=== PATIENT | female | born 1930 | race Caucasian/White ===

== ENCOUNTER → 2016-10-07 | Outpatient (CLI) | payer OTHER, MEDICARE ==
[~2016-10-07] MED LIST: ADVIN10/60 INH; ASPI-435 PO; CALC1TAB9 PO; CHOL1TAB16 PO; LEVO25TA5 PO; MULT-831 PO; OMEP20CA59 PO; OXYB5TAB PO; SENN15TA PO
--- NOTE | 2016-10-07 14:30 | MAMMOGRAPHY REPORT ---
BILATERAL DIGITAL SCREENING MAMMOGRAM WITH CAD: 10/07/2016 CLINICAL HISTORY: Routine screening. TECHNIQUE: Bilateral CC and MLO views were obtained. Current study was also evaluated with a Compute r Aided Detection (CAD) system. COMPARISON: Comparison is made to exams dated: 10/04/2015 mammogram, 09/13/2014 mammogram, 09/09/2013 ma mmogram, 09/07/2012 mammogram, 09/04/2011 mammogram, and 08/31/2010 mammogram - [facility] er. BREAST COMPOSITION: The tissue of both breasts is heterogeneously dense, which may obscure small mas ses. FINDINGS: There are stable intramammary lymph nodes in each upper outer quadrant. Moderate vascular calcifications bilaterally. Stable groupings of benign-appearing microcalcifications in each breast. No new suspicious mass, architectural distortion or cluster of microcalcifications is seen. IMPRESSION: ACR BI-RADS CATEGORY 1: NEGATIVE There is no mammographic evidence of malignancy. A 1 year screening mammogram is recommended. The pa tient will receive written notification of the results. Approximately 10% of breast cancers are not detected with mammography. A negative mammographic report should not delay biopsy if a clinically suggestive mass is present. Jessy Gomez M.D. ay/:10/07/2016 12:38:17 [employer] Setter: Monserrat PACHECO(R)([place]), [facility] letter sent: Normal 1/2 BI-RADS Code: ACR BI-RADS Category 1: Negative
== END | disposition home or self-care (01) ==
LOC: C.MAMM 10:40
PROVIDERS: ATTEND Obstetrics & Gynecology
DX: Z12.31 Encounter for screening mammogram for malignant neoplasm of breast (principal)

== ENCOUNTER → 2016-12-19 | Outpatient (CLI) | payer OTHER, MEDICARE | END | disposition home or self-care (01) | LOC: C.PAPS 14:09 | PROVIDERS: ATTEND Obstetrics & Gynecology | DX: Z12.4 Encounter for screening for malignant neoplasm of cervix (principal) ==

== ENCOUNTER → 2017-08-06 | Outpatient (CLI) | payer OTHER, MEDICARE ==
[2017-08-06 17:17] LABS: BLOOD UREA NITROGEN 13 mg/dl (7-18); CALCIUM 9.1 mg/dl (8.5-10.1); CARBON DIOXIDE 28 mmol/L (21-32); CREATININE 0.73 mg/dl (0.60-1.20); GLUCOSE 97 mg/dl (70-99); POTASSIUM 3.8 mmol/L (3.5-5.1); SODIUM 140 mmol/L (136-145)
== END | disposition home or self-care (01) ==
LOC: C.LABPBG 11:37
PROVIDERS: ATTEND Family Medicine
DX: R32 Unspecified urinary incontinence (principal); J45.909 Unspecified asthma, uncomplicated; E03.9 Hypothyroidism, unspecified; M81.0 Age-related osteoporosis without current pathological fracture

== ENCOUNTER 2018-10-26 11:05 | Observation (INO) ==
[2018-10-26] MEDS ORDERED: ONDANSETRON INJ 2 MG/ML 2 ML VIAL IV STA (11:55)
[2018-10-26] MEDS ORDERED: MoRPHine SULFATE 2 MG/ML CARP IV STA ×2 (11:55→13:43)
[2018-10-26] MEDS ORDERED: SODIUM CHLORIDE 0.9% 500 ML IV ONE (11:59)
[2018-10-26 12:07] LABS: Basophils # (auto) 0.04 K/uL (0-0.2); Basophils % (auto) 0.4 %; Eosinophils # (auto) 0.06 K/uL (0-0.5); Eosinophils % (auto) 0.6 %; Hematocrit (blood only) 38.6 % (37-47); Immature Granulocytes # (auto) 0.04 K/uL (0.00-0.02); Immature Granulocytes % (auto) 0.4 %; Lymphocytes # (auto) 1.76 K/uL (1.2-3.4); Mean Corpuscular Hgb Conc 33.7 g/dL (32-36); Mean Corpuscular Volume 88.1 fL (80-100); Mean Platelet Volume 12.1 fL (7.4-10.4); Monocytes # (auto) 0.68 K/uL (0.11-0.59); Neutrophils # (auto) 7.19 K/uL (1.4-6.5); Neutrophils % (auto) 73.6 %; Platelet Count 173 K/uL (130-400); RDW Coefficient of Variation 13.1 % (11.5-14.5); Red Blood Count 4.38 M/uL (4.2-5.4); White Blood Count 9.77 K/uL (4.8-10.8)
--- NOTE | 2018-10-26 12:10 | Emergency Department Note ---
History of Present Illness General Chief complaint: Fall Time Seen by Provider: 10/26/18 11:47 History of Present Illness Maximum Pain Intensity: 10 This is an 87-year-old female presenting to the emergency department for evaluation of vertigo symptoms and fall. The patient states that she has had vertigo off and on for the past "50 years". The patient states that her symptoms returned and worsened yesterday, where she felt safe only laying on the couch. She did not contact her doctor because it was a Friday. She states this morning around 9 AM she decided to go outside because the weather was nice. She was walking outside on the sidewalk, when her vertigo symptoms began again, and she fell into the yard. The patient is complaining of right-sided arm pain as well as pain into her right side neck. She rates her overall discomfort a 10/10. Of note, additional history is provided by family who are not currently in the room with the patient. Evidently the patient has had some deteriorating mental health capacity over the past month. She has been forgetting birthdays, walking into door frames, and suffering from short term memory loss. Home Medications Home Medications Medication Instructions Recorded Confirmed Type cholecalciferol (vitamin D3) 2,000 2,000 units PO QAM tab 10/09/18 10/26/18 History unit tablet multivitamin chewable tablet 1 tab PO QAM 10/09/18 10/26/18 History aspirin 81 mg PO HS 10/26/18 10/26/18 History omeprazole magnesium [Prilosec OTC] 20 mg PO QAM 10/26/18 10/26/18 History oxybutynin chloride 5 mg PO TID 10/26/18 10/26/18 History sennosides [Perdiem Overnight 15 mg PO BID 10/26/18 10/26/18 History Relief] Allergies Allergy/AdvReac Type Severity Reaction Status Date / Time adhesive Allergy Mild RASH Verified 10/26/18 13:32 sulfamethoxazole Allergy Unknown RASH/HIVES Verified 10/26/18 13:32 Past Med/Surg History Medical History Ataxia (Chronic) Dislocation of right shoulder joint (Acute) Urinary incontinence (Chronic) Osteoporosis (Chronic) Macular degeneration (Chronic) Hypothyroidism (Chronic) Hypokalemia (Chronic) Grief (Chronic) GERD without esophagitis (Chronic) Constipation (Chronic) chronic Arthritis (Chronic) Social History Preferred Language: Mongolian Communication Ability: Effective Visual Impairment: Limited Hearing Ability: Normal Beliefs That Will Affect Care: None marital status: / Current Living Situation: Alone Current Living Situation Comment: [place]. current occupational status: retired Other Information That Helps Us Care for You: No Feels Safe at Home: Yes Safety Concerns: Feels Safe At This Time Smoking Status: Never smoker Hx Alcohol Use: No Hx Substance Use: No Childhood Exposure to Second-Hand Smoke: No caffeine: Yes Dental Care, Regularly: Yes Seatbelt Use: always Sunscreen Use: Yes Review of Systems A total of 10 systems reviewed and were otherwise negative Physical Exam Vital Signs Vital Signs - 24 hr 10/26/18 11:20 10/26/18 12:39 10/26/18 14:00 Temperature 36.7 C Temperature Source Oral Sepsis Recent Fever Within 48 Hours No Sepsis Action Taken by Nursing No Action Required Pulse Rate 61 64 Pulse Rate [Right Finger] 60 Respiratory Rate 18 15 Blood Pressure 139/71 146/73 H Blood Pressure [Left Arm] 146/73 H Blood Pressure Mean 93 97 Blood Pressure Mean [Left Arm] 97 Pulse Oximetry 97 96 Oxygen Delivery Method Room Air Room Air Room Air 10/26/18 14:37 10/26/18 15:00 10/26/18 15:30 Temperature Temperature Source Sepsis Recent Fever Within 48 Hours Sepsis Action Taken by Nursing Pulse Rate 60 64 64 Pulse Rate [Right Finger] Respiratory Rate 15 18 17 Blood Pressure 133/68 119/56 L 139/68 Blood Pressure [Left Arm] Blood Pressure Mean 89 77 91 Blood Pressure Mean [Left Arm] Pulse Oximetry 96 93 95 Oxygen Delivery Method Room Air Room Air Room Air 10/26/18 16:00 Temperature Temperature Source Sepsis Recent Fever Within 48 Hours Sepsis Action Taken by Nursing Pulse Rate 73 Pulse Rate [Right Finger] Respiratory Rate 14 Blood Pressure 129/83 Blood Pressure [Left Arm] Blood Pressure Mean 98 Blood Pressure Mean [Left Arm] Pulse Oximetry 95 Oxygen Delivery Method Room Air VITALS: Vitals are noted on the nurse's note and reviewed by myself. Vital signs stable. GENERAL: Well-developed, well-nourished, elderly white female, who is guarding her right arm HEAD: Normocephalic atraumatic. EARS: External ear normal. External auditory canals clear, tympanic membranes pearly finn without erythema or effusion bilaterally. EYES: Pupils equal round and reactive to light and accommodation. Conjunctivae without injection, sclerae without icterus. Extraocular movements intact. NOSE: Patent, turbinates without inflammation or discharge. MOUTH: Mucous membranes moist. Tonsils are not enlarged. Pharynx without erythema, blood, or exudate. Uvula midline. Airway patent. NECK: Supple without nuchal rigidity. No lymphadenopathy. No thyromegaly. Cervical spine is tender along the right side HEART: Regular rate and rhythm without murmurs gallops or rubs. LUNGS: Clear to auscultation bilaterally without wheezes, rales or rhonchi. No retractions or accessory muscle use. ABDOMEN: Positive normal bowel sounds x 4. Soft, nontender, without masses or organomegaly. No pelvic tenderness. MUSCULOSKELETAL: Positive tenderness appreciated along the right sided scapula and proximal humerus. There does appear to be evidence of shoulder dislocation or fracture. The patient is unable to abduct or externally rotate the right shoulder. No significant paresthesias noted. No other musculoskeletal tenderness. NEURO: Patient was alert and oriented to person place and time, however she does have episodes of confusion and is unsure where she is. CN II through XII grossly intact. Course Administered Medications Discontinued Medications Fentanyl Citrate (Fentanyl Citrate) 50 mcg IV NOW STA Stop: 10/26/18 14:21 Last Admin: 10/26/18 14:28 Dose: 50 mcg Documented by: [id number] Fentanyl Citrate (Fentanyl Citrate) Confirm Administered Dose 100 mcg .ROUTE .STK-MED ONE Stop: 10/26/18 14:22 Last Admin: 10/26/18 14:56 Dose: Not Given Documented by: [id number] Sodium Chloride (Nss) 500 mls @ 999 mls/hr IV .Q31M ONE Stop: 10/26/18 12:29 Last Infusion: 10/26/18 13:20 Dose: 0 mls/hr Documented by: [id number] Admin: 10/26/18 12:30 Dose: 999 mls/hr Documented by: [id number] Morphine Sulfate (Morphine Sulfate) 2 mg IV NOW STA Stop: 10/26/18 11:56 Last Admin: 10/26/18 12:29 Dose: 2 mg Documented by: [id number] Morphine Sulfate (Morphine Sulfate) 2 mg IV NOW STA Stop: 10/26/18 13:44 Last Admin: 10/26/18 13:48 Dose: 2 mg Documented by: [id number] Ondansetron HCl (Zofran) 4 mg IV NOW STA Stop: 10/26/18 11:56 Last Admin: 10/26/18 12:29 Dose: 4 mg Documented by: [id number] Medical Decision Making Differential Diagnosis Differential diagnosis: Etiologies such as tendon or ligamentous injury, contusion, fracture, cervical/vertebral injury, dislocation, intra-abdominal process, pneumothorax, intrathoracic trauma, intracranial injury, soft tissue injury, neurologic process, as well as other traumatic pathologies were entertained. Laboratory Data Result diagrams: 10/26/18 11:21 10/26/18 11:21 Lab Results 10/26/18 10/26/18 10/26/18 Range/Units 11:21 11:21 11:21 WBC 9.77 (4.8-10.8) K/uL RBC 4.38 (4.2-5.4) M/uL Hgb 13.0 (12.0-16.0) g/dL Hct 38.6 (37-47) % MCV 88.1 (80-100) fL MCH 29.7 (25-34) pg MCHC 33.7 (32-36) g/dL RDW Std Deviation 42.0 (36.4-46.3) fL RDW Coeff of Dg 13.1 (11.5-14.5) % Plt Count 173 (130-400) K/uL MPV 12.1 H (7.4-10.4) fL Immature Gran % (Auto) 0.4 % Neut % (Auto) 73.6 % Lymph % (Auto) 18.0 % [place] % (Auto) 7.0 % Eos % (Auto) 0.6 % Baso % (Auto) 0.4 % Immature Gran # (Auto) 0.04 H (0.00-0.02) K/uL Neut # (Auto) 7.19 H (1.4-6.5) K/uL Lymph # (Auto) 1.76 (1.2-3.4) K/uL [place] # (Auto) 0.68 H (0.11-0.59) K/uL Eos # (Auto) 0.06 (0-0.5) K/uL Baso # (Auto) 0.04 (0-0.2) K/uL PT Cancelled INR Cancelled APTT Cancelled PTT Ratio Cancelled Sodium 141 (136-145) mmol/L Potassium 3.6 (3.5-5.1) mmol/L Chloride 107 (98-107) mmol/L Carbon Dioxide 25 (21-32) mmol/L Anion Gap 9.0 (3-11) BUN 17 (7-18) mg/dl Creatinine 0.83 (0.6-1.2) mg/dl Est Cr Clr Drug Dosing 39.5 ml/min Est GFR ( Amer) 74.5 Est GFR (Non-Af Amer) 64.3 BUN/Creatinine Ratio 20.3 H (10-20) Glucose 106 H (70-99) mg/dl Calcium 9.5 (8.5-10.1) mg/dl Magnesium 2.1 (1.8-2.4) mg/dl Total Bilirubin 0.4 (0.2-1) mg/dl AST 17 (15-37) U/L ALT 19 (12-78) U/L Alkaline Phosphatase 59 (45-117) U/L Troponin I < 0.015 (0-0.045) ng/ml Total Protein 7.5 (6.4-8.2) gm/dl Albumin 3.5 (3.4-5.0) gm/dl Globulin 4.0 (2.5-4.0) gm/dl Albumin/Globulin Ratio 0.9 (0.9-2) TSH 1.100 (0.300-4.500) uIu/ml 10/26/18 Range/Units 12:24 WBC (4.8-10.8) K/uL RBC (4.2-5.4) M/uL Hgb (12.0-16.0) g/dL Hct (37-47) % MCV (80-100) fL MCH (25-34) pg MCHC (32-36) g/dL RDW Std Deviation (36.4-46.3) fL RDW Coeff of Dg (11.5-14.5) % Plt Count (130-400) K/uL MPV (7.4-10.4) fL Immature Gran % (Auto) % Neut % (Auto) % Lymph % (Auto) % [place] % (Auto) % Eos % (Auto) % Baso % (Auto) % Immature Gran # (Auto) (0.00-0.02) K/uL Neut # (Auto) (1.4-6.5) K/uL Lymph # (Auto) (1.2-3.4) K/uL [place] # (Auto) (0.11-0.59) K/uL Eos # (Auto) (0-0.5) K/uL Baso # (Auto) (0-0.2) K/uL PT 10.5 INR 1.0 APTT 23.1 PTT Ratio 0.9 Sodium (136-145) mmol/L Potassium (3.5-5.1) mmol/L Chloride (98-107) mmol/L Carbon Dioxide (21-32) mmol/L Anion Gap (3-11) BUN (7-18) mg/dl Creatinine (0.6-1.2) mg/dl Est Cr Clr Drug Dosing ml/min Est GFR ( Amer) Est GFR (Non-Af Amer) BUN/Creatinine Ratio (10-20) Glucose (70-99) mg/dl Calcium (8.5-10.1) mg/dl Magnesium (1.8-2.4) mg/dl Total Bilirubin (0.2-1) mg/dl AST (15-37) U/L ALT (12-78) U/L Alkaline Phosphatase (45-117) U/L Troponin I (0-0.045) ng/ml Total Protein (6.4-8.2) gm/dl Albumin (3.4-5.0) gm/dl Globulin (2.5-4.0) gm/dl Albumin/Globulin Ratio (0.9-2) TSH (0.300-4.500) uIu/ml Imaging Data Radiologist's Impression: XR shoulder RT min 2V routine, XR humerus RT 2V CLINICAL HISTORY: fall. right shoulder/arm pain COMPARISON STUDY: None. FINDINGS: There is a right anterior shoulder dislocation. Mild irregularity at the inferior glenoid may represent a bony Bankart lesion. The right clavicle is intact. The bones are osteopenic. No definite humeral fractures identified. IMPRESSION: 1. Right anterior shoulder dislocation. 2. Mild irregularity at the inferior glenoid may represent a bony Bankart lesion. XR shoulder RT min 2V routine CLINICAL HISTORY: right shoulder s/p reduction COMPARISON: 10/26/2018 DISCUSSION: Anatomic alignment postclosed reduction. No well-defined fracture. There is no evidence for soft tissue swelling. IMPRESSION: Anatomic alignment postclosed reduction. CT head/brain wo con CT DOSE: HISTORY: vertigo symptoms TECHNIQUE: Multiaxial CT images of the head were performed without the use of intravenous contrast. A dose lowering technique was utilized adhering to the principles of ALARA. Comparison: None. Findings: The paranasal sinuses and mastoid air cells are clear. The calvarium and skull base are intact. The ventricles and sulci are within normal limits. There is no mass, hematoma, midline shift, or acute infarct. Age-related atrophy and chronic small vessel change. Impression: No acute intracranial abnormality. Age-related atrophy and chronic small vessel change. CT cervical spine wo con CT DOSE: HISTORY: Trauma. fall TECHNIQUE: Multiaxial CT images of the cervical spine were performed and reformatted in the sagittal and coronal plane without the use of contrast. A dose lowering technique was utilized adhering to the principles of ALARA. COMPARISON: None. FINDINGS: No fractures. No subluxation. Prevertebral soft tissues and the C1-C2 interval are intact. No pneumothorax. Severe degenerative disc changes through out. Straightening of the cervical curvature consistent with muscular spasm. Severe degenerative change of the C1-C2 complex. IMPRESSION: Severe degenerative change. No acute bony abnormality. XR chest 2V routine HISTORY: Right shoulder pain. fall COMPARISON: Chest 12/04/2017. FINDINGS: Right anterior shoulder dislocation. Advanced degenerative changes within the left shoulder, unchanged. The heart is normal in size. Mild diffuse interstitial thickening. This is likely chronic. No new focal lung consolidations to suggest pneumonia. No evidence for pulmonary edema. Possible 7 mm nodule within the right lower lobe. IMPRESSION: 1. Right anterior shoulder dislocation. 2. Mild chronic interstitial thickening, unchanged. 3. Possible 7 mm nodule within the right lower lobe. This is similar to the prior study. XR shoulder RT min 2V routine, XR humerus RT 2V CLINICAL HISTORY: fall. right shoulder/arm pain COMPARISON STUDY: None. FINDINGS: There is a right anterior shoulder dislocation. Mild irregularity at the inferior glenoid may represent a bony Bankart lesion. The right clavicle is intact. The bones are osteopenic. No definite humeral fractures identified. IMPRESSION: 1. Right anterior shoulder dislocation. 2. Mild irregularity at the inferior glenoid may represent a bony Bankart lesion. ECG Data Additional Comments: Normal sinus rhythm @60 bpm Normal ECG When compared with ECG of 03-MAR-2015 09:38, No significant change was found MDM Narrative Physical exam and history were performed. Nursing notes, EMR, and Medication List were personally reviewed. Patient appears to have dizziness symptoms worsening over the past 1 to 2 days. She does state these are related to her vertigo. Unfortunately, the patient did suffer a fall today, and appears to have caused injury to her right shoulder. IV access was established and labs were obtained. EKG is performed as above. X-rays of the chest, humerus, and shoulder were gathered. CT scans of the head and neck were also obtained. The patient was given 2 mg IV morphine for comfor t. The patient's blood work is as above and was reviewed. She does not have a significantly elevated white blood cell count, gross anemia, bandemia, or significant electrolyte imbalance. INR is 1 transaminases are not diagnostic. Troponin x1 is negative. TSH shows euthyroid state. Patient's CT scans of the head and neck were reviewed by myself and radiology, and do not show obvious acute injury. Patient's x-rays, however, do reveal an acute right shoulder dislocation. The case was discussed with my attending physician, Dr. Palencia, who also independently evaluated the patient. We discussed the need to reduce the patient's shoulder, and the patient did give consent. We did provide her 50 mcg fentanyl for pain control, and the shoulder was easily reduced by Dr. Palencia. Please see his specifics regarding this procedure. Overall the patient does not appear well for discharge home. The patient does seem to have some memory concerns over the past several weeks. The patient is now acutely dizzy to the point where she has fallen and dislocated her arm. I did discuss the case with the on-call hospitalist who agreed to evaluate the patient here in the ER. Please see their dictation for further patient course, plan, and disposition. The chart was completed utilizing [employer]ognition Software. Grammatical errors, random word insertions, pronoun errors, and incomplete sentences are an occasional consequence of this system due to software limitations, ambient noise, and hardware issues. Any formal questions or concerns about the content, text, or information contained within the body of this dictation should be directly addressed to the provider for clarification. . Impression & Plan Dizziness, Dislocation of right shoulder joint Discharge Plan Visit Data *Final* Discharge Date/Time: 10/26/18 18:33 Chief Complaint: Fall Other Complaint: Shoulder Pain ED Provider: Roberto Palencia ED Midlevel Provider: Conner Ellis Discharge Problem: Dizziness, Dislocation of right shoulder joint Patient Disposition: Admitted As Inpatient Discharge Instructions Interventions: ED Discharge Assessment Last Done: 10/26/18 18:33 Discharge Problem: Dislocation of right shoulder joint Qualifiers: Encounter type: initial encounter Qualified Code(s): S43.004A - Unspecified dislocation of right shoulder joint, initial encounter
[2018-10-26 12:15] LABS: Alanine Aminotransferase 19 U/L (12-78); Albumin Level 3.5 gm/dl (3.4-5.0); Aspartate Aminotransferase 17 U/L (15-37); BUN Creatinine Ratio 20.3 (10-20); Blood Urea Nitrogen 17 mg/dl (7-18); Calcium 9.5 mg/dl (8.5-10.1); Carbon Dioxide 25 mmol/L (21-32); Chloride 107 mmol/L (98-107); Creatinine Clr Calc Pharmacy 39.5 ml/min; Est GFR (African American) 74.5; Est GFR (Non-African American) 64.3; Glucose 106 mg/dl (70-99); Magnesium 2.1 mg/dl (1.8-2.4); Potassium 3.6 mmol/L (3.5-5.1); Sodium 141 mmol/L (136-145)
[2018-10-26 12:25] LABS: Albumin Globulin Ratio 0.9 (0.9-2); Alkaline Phosphatase 59 U/L (45-117); Bilirubin,Total 0.4 mg/dl (0.2-1); Total Protein 7.5 gm/dl (6.4-8.2); Troponin I < 0.015 ng/ml (0-0.045)
[2018-10-26 12:47] LABS: Partial Thromboplastin Ratio 0.9; Partial Thromboplastin Time 23.1 Seconds (21.0-31.0); Prothrombin Time 10.5 Seconds (9.0-12.0)
--- NOTE | 2018-10-26 13:26 | XRay Report ---
XR shoulder RT min 2V routine, XR humerus RT 2V CLINICAL HISTORY: fall. right shoulder/arm pain COMPARISON STUDY: None. FINDINGS: There is a right anterior shoulder dislocation. Mild irregularity at the inferior glenoid m ay represent a bony Bankart lesion. The right clavicle is intact. The bones are osteopenic. No defini te humeral fractures identified. IMPRESSION: 1. Right anterior shoulder dislocation. 2. Mild irregularity at the inferior glenoid may represent a bony Bankart lesion. Electronically signed by: Edward Cuevas M.D. 10/26/2018 1:25 PM
--- NOTE | 2018-10-26 13:31 | XRay Report ---
XR chest 2V routine HISTORY: Right shoulder pain. fall COMPARISON: Chest 12/04/2017. FINDINGS: Right anterior shoulder dislocation. Advanced degenerative changes within the left shoulder , unchanged. The heart is normal in size. Mild diffuse interstitial thickening. This is likely chroni c. No new focal lung consolidations to suggest pneumonia. No evidence for pulmonary edema. Possible 7 mm nodule within the right lower lobe. IMPRESSION: 1. Right anterior shoulder dislocation. 2. Mild chronic interstitial thickening, unchanged. 3. Possible 7 mm nodule within the right lower lobe. This is similar to the prior study. Electronically signed by: Edward Cuevas M.D. 10/26/2018 1:30 PM
--- NOTE | 2018-10-26 13:41 | CT Scan Report ---
CT cervical spine wo con CT DOSE: HISTORY: Trauma. fall TECHNIQUE: Multiaxial CT images of the cervical spine were performed and reformatted in the sagittal and coronal plane without the use of contrast. A dose lowering technique was utilized adhering to th e principles of ALARA. COMPARISON: None. FINDINGS: No fractures. No subluxation. Prevertebral soft tissues and the C1-C2 interval are intact. No pneumothorax. Severe degenerative disc changes throughout. Straightening of the cervical curvature consistent with muscular spasm. Severe degenerative change of the C1-C2 complex. IMPRESSION: Severe degenerative change. No acute bony abnormality. The above report was generated using voice recognition software. It may contain grammatical, syntax or spelling errors. Electronically signed by: Ismael Brennan M.D. 10/26/2018 1:39 PM
--- NOTE | 2018-10-26 13:42 | CT Scan Report ---
CT head/brain wo con CT DOSE: HISTORY: vertigo symptoms TECHNIQUE: Multiaxial CT images of the head were performed without the use of intravenous contrast. A dose lowering technique was utilized adhering to the principles of ALARA. Comparison: None. Findings: The paranasal sinuses and mastoid air cells are clear. The calvarium and skull base are int act. The ventricles and sulci are within normal limits. There is no mass, hematoma, midline shift, or acute infarct. Age-related atrophy and chronic small vessel change. Impression: No acute intracranial abnormality. Age-related atrophy and chronic small vessel change. The above report was generated using voice recognition software. It may contain grammatical, syntax or spelling errors. Electronically signed by: Ismael Brennan M.D. 10/26/2018 1:41 PM
[2018-10-26] MEDS ORDERED: fentaNYL citrate 100 MCG/2 ML VIAL IV STA (14:20)
[2018-10-26] MEDS ORDERED: fentaNYL citrate 100 MCG/2 ML VIAL ONE (14:21)
--- NOTE | 2018-10-26 15:17 | XRay Report ---
XR shoulder RT min 2V routine CLINICAL HISTORY: right shoulder s/p reduction COMPARISON: 10/26/2018 DISCUSSION: Anatomic alignment postclosed reduction. No well-defined fracture. There is no evidence f or soft tissue swelling. IMPRESSION: Anatomic alignment postclosed reduction. The above report was generated using voice recognition software. It may contain grammatical, syntax or spelling errors. Electronically signed by: Ismael Brennan M.D. 10/26/2018 3:15 PM
--- NOTE | 2018-10-26 16:59 | Emergency Department Note ---
Entered by Radha Stearns acting as a scribe for ED Visit Note Anterior Shoulder Dislocation Reduction Indication: Fall, right shoulder dislocation Verbal consent obtained. Risks and benefits were explained with the usual customary discussion. A time out was taken. Neurovascular examination before the procedure revealed intact with exception of mild paresthesias in her right fifth digit. The right shoulder glenohumeral dislocation was reduced by placing the patient prone and applying gentle downward inline traction on the humerus, with the elbow flexed at 90 degrees, while scapula manipulation was applied. This resulted in an easy reduction without complication. Neurovascular examination after the procedure revealed intact. The patient had significant pain relief and tolerated the procedure well. Still had paresthesias in her right fifth digit. Staff note: I have seen and examined this patient. I have discussed this case with my PA and generally agree with the ED note and findings. . The scribe's documentation has been prepared under my direction and personally reviewed by me in its entirety. I confirm that the note above accurately reflects all work, treatment, procedures, and medical decision making performed by me.
--- NOTE | 2018-10-26 17:41 | History & Physical Report ---
Date of Service October 26, 2018 Assessment & Plan (1) Dislocation of right shoulder joint: Mechanical fall today due to balance issues. Right shoulder was reduced in the ED. No fracture. 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 Head CT scan reveals age-related changes. We will consult neurology and obtain brain MRI. OT and PT assessments tomorrow Present on Admission?: Yes (3) GERD without esophagitis: Treated with PPI therapy Present on Admission?: Yes (4) DVT prophylaxis: Early ambulation History of Present Illness Chief Complaint: Imbalance, falling down, right shoulder dislocation Primary Care Provider: Kenya Conley, DO 87-year-old female with balance issues for quite some time. They have gotten worse recently however in the family has also noted a change in her affect and occasional altered mental status. She suffered a mechanical fall today dislocating her right shoulder. This was reduced in the ED. No fractures. Head CT scan reveals age-related changes. She does have a wide based gait with positive Romberg. No other focal deficits. Brain MRI scan will be obtained and neurological consultation will be requested. Orthopedic consultation will also be requested. Occupational Therapy and physical therapy consults have been placed. She will be in observation status at least overnight for further assessment. Allergies Allergy/AdvReac Type Severity Reaction Status Date / Time adhesive Allergy Mild RASH Verified 10/26/18 13:32 sulfamethoxazole Allergy Unknown RASH/HIVES Verified 10/26/18 13:32 Home Medications Home Medications Medication Instructions Recorded Confirmed Type cholecalciferol (vitamin D3) 2,000 2,000 units PO QAM tab 10/09/18 10/26/18 History unit tablet multivitamin chewable tablet 1 tab PO QAM 10/09/18 10/26/18 History aspirin 81 mg PO HS 10/26/18 10/26/18 History omeprazole magnesium [Prilosec OTC] 20 mg PO QAM 10/26/18 10/26/18 History oxybutynin chloride 5 mg PO TID 10/26/18 10/26/18 History sennosides [Perdiem Overnight 15 mg PO BID 10/26/18 10/26/18 History Relief] Past Med/Surg History Social History Preferred Language: Honduran Communication Ability: Effective Visual Impairment: Limited Hearing Ability: Normal Beliefs That Will Affect Care: Advent marital status: / Current Living Situation: Alone current occupational status: retired Feels Safe at Home: Yes Smoking Status: Never smoker Hx Alcohol Use: No Hx Substance Use: No Childhood Exposure to Second-Hand Smoke: No caffeine: Yes Dental Care, Regularly: Yes Seatbelt Use: always Sunscreen Use: Yes Review of Systems Review of Systems: Constitutional-no fever or chills ENT-no blurred vision, no double vision, no epistaxis, no sore throat Respiratory-no cough, no wheezing, no shortness of breath Cardiac-no palpitations, no chest pain, no syncope GI-no nausea, vomiting, diarrhea, melena, hematochezia -no urinary retention, no urinary incontinence, no dysuria, no hematuria Musculoskeletal-no joint pain, no muscle tenderness Skin-no bruising, no rashes, no pruritus Neuro-imbalance. No vertigo. No localized weakness Psych-no depression, no anxiety Physical Exam Physical Exam: General-alert and oriented x3, no fevers, no chills HEENT-head atraumatic and normocephalic, TMs intact bilaterally, pupils equal and reactive to light, extraocular muscles intact Neck-no lymphadenopathy or thyromegaly, trachea midline Chest-clear to auscultation percussion. No rales wheezing or rhonchi Cardiac-regular rate and rhythm, normal S1 and S2, no murmurs Abdomen-normal bowel sounds, nontender, no hepatosplenomegaly Extremities-no cyanosis, clubbing, or edema. Chronically limited range of motion of the left shoulder. Her right shoulder was dislocated earlier today but reduced in the ED and is somewhat tender to touch with limited range of motion. No palpable fracture Neuro-cranial nerves II through XII intact, motor and sensory function within normal limits, strength symmetrical , no focal deficits. She exhibits an ataxic wide-based gait. Positive Romberg Psych-normal affect, normal mood Results & Data Vital Signs (Past 12 Hours) Vital Signs Temp Pulse Pulse Resp BP BP Pulse Ox 10/26/18 16:00 73 14 129/83 95 10/26/18 15:30 64 17 139/68 95 10/26/18 15:00 64 18 119/56 L 93 10/26/18 14:37 60 15 133/68 96 10/26/18 14:00 64 60 15 146/73 H 146/73 H 96 10/26/18 11:20 36.7 C 61 18 139/71 97 Laboratory Results 10/26/18 11:21 10/26/18 11:21 PG Care Time/CCT Total # of Minutes Spent Total Time Spent with Patient: Total time spent is greater than 50% in coordination of care (as documented) at patient's floor/unit and/or counseling patient:
[2018-10-26] MEDS ORDERED: ALUMINUM/MAGNESIUM SUSP 30 ML UDC PO PRN (19:08)
[2018-10-26] MEDS ORDERED: ONDANSETRON INJ 2 MG/ML 2 ML VIAL IV PRN (19:08)
[2018-10-26] MEDS ORDERED: ACETAMINOPHEN 325 MG TAB PO PRN (19:08)
[2018-10-26 20:09] LABS: Appearance Urine Clear (Clear); Bacteria Urine Automated 3+ (Negative); Bilirubin Urine Negative (Negative); Blood Urine Negative (Negative); Cast Urine Automated 0 /lpf (0-5); Color Urine Yellow; Glucose Urine UA Negative (Negative); Ketones Urine Negative (Negative); Leukocyte Esterase Urine 2+ (Negative); Nitrite Urine Negative (Negative); Protein Urine Negative (Negative); RBC Urine Automated 0-4 /hpf (0-4); Specific Gravity Urine 1.012 (1.000-1.030); Urobilinogen Urine Negative (Negative)
[2018-10-26] MEDS ORDERED: GADOBUTROL 65ML VIAL IV PRN (21:11)
[2018-10-26] MEDS: SENNA 8.6 MG TAB PO SCH (21:23)
[2018-10-26] MEDS: ASPIRIN 81 MG ECTAB PO SCH (21:23)
--- NOTE | 2018-10-26 21:24 | Magnetic Resonance Report ---
MRI OF THE BRAIN WITHOUT AND WITH IV CONTRAST CLINICAL HISTORY: Ataxia TRAUMA COMPARISON STUDY: May 2006, head CT 10/26/2018 TECHNIQUE: MRI of the brain was performed from the vertex to the skull base utilizing various T1 and T2 weighted sequences. Following the IV administration of 6 mL of Gadavist contrast, additional enhan mike images were obtained. FINDINGS: Sagittal T1, axial diffusion, proton density and T2 weighted axial, coronal FLAIR, and pre and post a xial T1-weighted images were acquired. These were supplemented with post gadolinium coronal T1 weight ed images. No intra or extra-axial mass lesions are visualized. Axial diffusion-weighted images reveal no evidence of acute or subacute infarction. There is no evidence of ventricular dilatation. Proton density T2-weighted and FLAIR images reveal moderate foci of increased T2 signal within the wh ite matter, likely on a small vessel basis. The findings are progressive when compared the prior 2006 study There are no abnormal flow voids. There is no evidence of pathologic enhancement. IMPRESSION: 1. No evidence of intracranial mass 2. No evidence of acute or subacute infarction 2. 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 There are 2 T2 bright 6 mm lesions within the deep lobe of the right parotid gland. These could re present lymph nodes or small epithelial neoplasms Electronically signed by: Spike Perez M.D. 10/26/2018 9:22 PM
[2018-10-27] MEDS: MULTIVITAMIN TAB PO SCH (09:17)
[2018-10-27] MEDS: CHOLECALCIFEROL 1,000 UNITS TAB PO SCH (09:17)
[2018-10-27] MEDS: PANTOprazole 40 MG TAB PO SCH (09:17)
[2018-10-27] MEDS: SENNA 8.6 MG TAB PO SCH ×2 (09:17→21:01)
--- NOTE | 2018-10-27 10:18 | Neurology Consultation ---
Date of Consultation October 27, 2018 Assessment & Plan (1) Vertigo: Episodic vertigo which goes back many years and is often times triggered by standing up but not clearly related to other changes in position. Her reported symptoms are not highly suggestive of BPPV or Mnire's disease althou gh these diagnoses are not completely excluded. Her vertigo could be related to chronic cerebrovascular disease or be of the cervicogenic type. These 2 diagnostic possibilities are potentially supported by her imaging. I do not find any evidence of nystagmus, ataxia, or gross gait abnormality on her general neurological examination this morning. A trial of a vestibular suppressant such as meclizine 12.5 mg taken as needed would be reasonable. Treatment with physical therapy may also be beneficial. Would also consider outpatient assessment at a vestibular center. (2) Cerebrovascular disease: As described on her brain MRI, this patient does have evidence of moderately progressive small vessel ischemic change which may contribute to her vertiginous symptoms. She should continue with daily low-dose aspirin. A lipid panel from this past January was within normal limits and there is not appear to be a clear role for a statin. I would recommend a carotid ultrasound. If she does have evidence of moderate to significant atherosclerotic change a statin could be considered. History of Present Illness Reason for Consultation: ataxia Requesting Physician: Tessa Rivera MD Attending Physician: Porter Rivera MD History of Present Illness The patient is an 87-year-old female with a chief complaint of vertigo. She indicates that she has been experiencing episodic vertigo for many years. Her episodes typically occur without warning but are often times triggered by standing up quickly. The episodes may persist for a day or more. When the episodes are intense, she admits to experiencing a sensation of movement, sometimes spinning. No associated nausea or vomiting. No associated dysarthria or vision change. She presented to the emergency department yesterday after a particularly intense episode of vertigo that was complicated by a fall and dislocation of the right shoulder that has subsequently been reduced. No fracture. Her balance has been considered poor for many years and neurology has been consulted for further assessment of ataxia. The patient denies a history of diabetes or peripheral neuropathy. She denies a history of tremor or significant problems with her gait. Additional details as below. Family history noncontributory. No known family history of progressive ataxic syndrome. Allergies Allergy/AdvReac Type Severity Reaction Status Date / Time adhesive Allergy Mild RASH Verified 10/26/18 13:32 sulfamethoxazole Allergy Unknown RASH/HIVES Verified 10/26/18 13:32 Home Medications Home Medications Medication Instructions Recorded Confirmed Type cholecalciferol (vitamin D3) 2,000 2,000 units PO QAM tab 10/09/18 10/26/18 History unit tablet multivitamin chewable tablet 1 tab PO QAM 10/09/18 10/26/18 History aspirin 81 mg PO HS 10/26/18 10/26/18 History omeprazole magnesium [Prilosec OTC] 20 mg PO QAM 10/26/18 10/26/18 History oxybutynin chloride 5 mg PO TID 10/26/18 10/26/18 History sennosides [Perdiem Overnight 15 mg PO BID 10/26/18 10/26/18 History Relief] Patient History Medical History Ataxia (Chronic) Dislocation of right shoulder joint (Acute) Urinary incontinence (Chronic) Osteoporosis (Chronic) Macular degeneration (Chronic) Hypothyroidism (Chronic) Hypokalemia (Chronic) Grief (Chronic) GERD without esophagitis (Chronic) Constipation (Chronic) chronic Arthritis (Chronic) Social History Preferred Language: Colombian Communication Ability: Effective Visual Impairment: Limited Hearing Ability: Normal Beliefs That Will Affect Care: None marital status: / Current Living Situation: Alone Current Living Situation Comment: [place]. current occupational status: retired Other Information That Helps Us Care for You: No Feels Safe at Home: Yes Safety Concerns: Feels Safe At This Time Smoking Status: Never smoker Hx Alcohol Use: No Hx Substance Use: No Childhood Exposure to Second-Hand Smoke: No caffeine: Yes Dental Care, Regularly: Yes Seatbelt Use: always Sunscreen Use: Yes Review of Systems Constitutional: no fever and no chills Eyes: no blind spots and no diplopia Ear, Nose, Mouth, Throat: no ear pain and no tinnitus Respiratory: no cough and no dyspnea Cardiovascular: no chest pain and no palpitations Gastrointestinal: no nausea and no vomiting Genitourinary: no dysuria and no urinary incontinence Musculoskeletal: no myalgia Integumentary: no rash and no lesions Neurologic: as per Subjective / HPI, + unsteadiness, + falls and + dizziness; no headache(s) Psychiatric: no depression and no anxiety Hematologic / Lymphatic: no easy bleeding and no coagulopathy Physical Exam Physical Exam: The patient is a well-developed, well-nourished elderly female. She is alert and fully oriented. Recent and remote memory intact. Attention and concentration normal. Patient exhibits a normal spontaneous speech pattern as well as an age-appropriate fund of knowledge and normal comprehension of vocabulary. Visual carl full to confrontation. Visual acuity normal. Pupils equal round reactive to light and accommodation. Eye movements normal. There is no facial droop or weakness. Hearing intact. Palate elevates to midline. Shoulder shrug intact. Tongue protrudes to midline. Sensation intact to all modalities in all 4 limbs. Deep tendon reflexes are intact and symmetrical for the arms and legs. Plantar responses downgoing bilaterally. There is no dysdiadochokinesia or dysmetria [id number] or [id number] bilaterally. Ophthalmoscopic examination reveals normal-appearing optic disks and posterior segments. No papilledema or hemorrhages. Carotid pulses normal bilaterally, no bruits to auscultation. Gait and station normal. Patient does not have a wide- based ataxic gait. She does not have a magnetic or apractic gait. Patient exhibits normal muscle strength and tone for all 4 limbs. No atrophy. No abnormal movements observed. Results & Data Vital Signs (Past 12 Hours) Vital Signs Temp Pulse Resp BP Pulse Ox 10/27/18 07:00 36.9 C 69 15 133/69 94 10/26/18 23:05 36.7 C 64 16 125/62 97 Laboratory Results Recently completed labs reviewed. WBC 9.77, hemoglobin 13.0, hematocrit 38.6, platelet count 173, sodium 141, potassium 3.6, BUN 17, creatinine 0.83, glucose 106, transaminases normal, vitamin B12 level [address] of the head completed yesterday was negative for acute process. There is evidence of age-related atrophy and chronic small vessel change. Images and report reviewed. A CT of the cervical spine reveals severe degenerative disc change throughout with associated straightening of the cervical curvature suggestive of muscular spasm. No acute bony abnormality. MRI of the brain was negative for acute or subacute stroke. There is evidence of moderate chronic small vessel ischemic disease as well as a right parotid gland lesion. Images and report reviewed. No evidence of normal pressure hydrocephalus or focal cerebellar atrophy.
[2018-10-27] MEDS: cephALEXin 500 MG CAP PO SCH ×2 (11:32→21:01)
--- NOTE | 2018-10-27 12:51 | Orthopedic Consultation ---
Date of Consultation October 27, 2018 Assessment & Plan (1) Dislocation of right shoulder joint: Status post closed reduction in the emergency department. Recommend sling immobilization right upper extremity for comfort, may remove for hygiene purposes, no weightbearing right upper extremity, will need to follow-up in the office 1 to 2 weeks, to begin gentle active assistive and passive range of motion of the shoulder. Thank you for the consultation History of Present Illness Reason for Consultation: Right shoulder dislocation Attending Physician: Ga Suazo History of Present Illness The patient is a 87-year-old female with significant past medical history for ataxia, hypothyroid, hypokalemia, GERD presents with increased frequency and falls. Sustained a mechanical fall from standing height on 10/26/2018, subsequent pain to the right shoulder, seen at [facility] emergency department was found to have an anterior shoulder dislocation. This was subsequently reduced in the emergency department the patient was admitted for further inpatient observation and intervention. Patient denies numbness and tingling in right upper extremity. Denies prior surgery or trauma to her right shoulder. Currently comfortable. Patient denies hitting head or loss of consciousness. Allergies Allergy/AdvReac Type Severity Reaction Status Date / Time adhesive Allergy Mild RASH Verified 10/26/18 13:32 sulfamethoxazole Allergy Unknown RASH/HIVES Verified 10/26/18 13:32 Home Medications Home Medications Medication Instructions Recorded Confirmed Type cholecalciferol (vitamin D3) 2,000 2,000 units PO QAM tab 10/09/18 10/26/18 History unit tablet multivitamin chewable tablet 1 tab PO QAM 10/09/18 10/26/18 History aspirin 81 mg PO HS 10/26/18 10/26/18 History omeprazole magnesium [Prilosec OTC] 20 mg PO QAM 10/26/18 10/26/18 History oxybutynin chloride 5 mg PO TID 10/26/18 10/26/18 History sennosides [Perdiem Overnight 15 mg PO BID 10/26/18 10/26/18 History Relief] Patient History Medical History Ataxia (Chronic) Dislocation of right shoulder joint (Acute) Urinary incontinence (Chronic) Osteoporosis (Chronic) Macular degeneration (Chronic) Hypothyroidism (Chronic) Hypokalemia (Chronic) Grief (Chronic) GERD without esophagitis (Chronic) Constipation (Chronic) chronic Arthritis (Chronic) Social History Preferred Language: Lithuanian Communication Ability: Effective Visual Impairment: Limited Hearing Ability: Normal Beliefs That Will Affect Care: None marital status: / Current Living Situation: Alone Current Living Situation Comment: [place]. current occupational status: retired Other Information That Helps Us Care for You: No Feels Safe at Home: Yes Safety Concerns: Feels Safe At This Time Smoking Status: Never smoker Hx Alcohol Use: No Hx Substance Use: No Childhood Exposure to Second-Hand Smoke: No caffeine: Yes Dental Care, Regularly: Yes Seatbelt Use: always Sunscreen Use: Yes Review of Systems Review of Systems: All systems reviewed & are unremarkable except as noted in HPI & below Constitutional: as per Subjective / HPI Physical Exam Physical Exam: Right upper extremity neurovascular sensory intact, + median/ulnar/radial/AIN/PIN, +2 radial pulse, 5 out of 5 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 Constitutional: WD/WN, vitals as above Results & Data Vital Signs (Past 12 Hours) Vital Signs Temp Pulse Resp BP Pulse Ox 10/27/18 10:55 97 10/27/18 07:00 36.9 C 69 15 133/69 94 Diagnostic Findings XR shoulder RT min 2V routine CLINICAL HISTORY: right shoulder s/p reduction COMPARISON: 10/26/2018 DISCUSSION: Anatomic alignment postclosed reduction. No well-defined fracture. There is no evidence for soft tissue swelling. IMPRESSION: Anatomic alignment postclosed reduction. The above report was generated using voice recognition software. It may contain grammatical, syntax or spelling errors. XR shoulder RT min 2V routine, XR humerus RT 2V CLINICAL HISTORY: fall. right shoulder/arm pain COMPARISON STUDY: None. FINDINGS: There is a right anterior shoulder dislocation. Mild irregularity at the inferior glenoid may represent a bony Bankart lesion. The right clavicle is intact. The bones are osteopenic. No definite humeral fractures identified. IMPRESSION: 1. Right anterior shoulder dislocation. 2. Mild irregularity at the inferior glenoid may represent a bony Bankart lesion. XR shoulder RT min 2V routine, XR humerus RT 2V CLINICAL HISTORY: fall. right shoulder/arm pain COMPARISON STUDY: None. FINDINGS: There is a right anterior shoulder dislocation. Mild irregularity at the inferior glenoid may represent a bony Bankart lesion. The right clavicle is intact. The bones are osteopenic. No definite humeral fractures identified. IMPRESSION: 1. Right anterior shoulder dislocation. 2. Mild irregularity at the inferior glenoid may represent a bony Bankart lesion. XR shoulder RT min 2V routine, XR humerus RT 2V CLINICAL HISTORY: fall. right shoulder/arm pain COMPARISON STUDY: None. FINDINGS: There is a right anterior shoulder dislocation. Mild irregularity at the inferior glenoid may represent a bony Bankart lesion. The right clavicle is intact. The bones are osteopenic. No definite humeral fractures identified. IMPRESSION: 1. Right anterior shoulder dislocation. 2. Mild irregularity at the inferior glenoid may represent a bony Bankart lesion. XR shoulder RT min 2V routine, XR humerus RT 2V CLINICAL HISTORY: fall. right shoulder/arm pain COMPARISON STUDY: None. FINDINGS: There is a right anterior shoulder dislocation. Mild irregularity at the inferior glenoid may represent a bony Bankart lesion. The right clavicle is intact. The bones are osteopenic. No definite humeral fractures identified. IMPRESSION: 1. Right anterior shoulder dislocation. 2. Mild irregularity at the inferior glenoid may represent a bony Bankart lesion. (1) Dislocation of right shoulder joint Encounter type: initial encounter Qualified Code(s): S43.004A - Unspecified dislocation of right shoulder joint, initial encounter
--- NOTE | 2018-10-27 15:57 | Ultrasound Report ---
US carotid doppler BI HISTORY: Mental status change cerebrovascular disease, vertigo COMPARISON: None. TECHNIQUE: Real-time, grayscale, and color Doppler sonography of the carotid arteries was performed. Imaging reviewed in the transverse and longitudinal planes. All measurements were calculated based on NASCET criteria. FINDINGS: Antegrade flow is seen in the bilateral vertebral arteries. The brachial pressures are hemodynamically similar. Mild plaque bilaterally The peak systolic velocity within the right ICA is 73. The right systolic ratio is 0.9. The peak systolic velocity within the left ICA is 77. The left systolic ratio is 1.1. IMPRESSION: No hemodynamically significant stenosis seen within the carotid arteries. Mild plaque formation The above report was generated using voice recognition software. It may contain grammatical, syntax or spelling errors. Electronically signed by: Ismael Brennan M.D. 10/27/2018 3:55 PM
--- NOTE | 2018-10-27 20:00 | Hospitalist Progress Note ---
Date of Service October 27, 2018 Assessment & Plan (1) Dislocation of right shoulder joint: s/p successful reduction in ER. now in sling with ROM restrictions as recommended by ortho. ortho has seen -- sling to remain -- outpatient f/u in 2 weeks for recheck. Present on Admission?: Yes (2) Vertigo: seen by neuro - etiology not 100% certain but symptoms improved. inner ear vs central vs related to cervical DJD vs other. either way it is improved. meclizine prn. check orthostatics. MRI brain neg for stroke of posterior circulation. stopped oxybutinin - this can cause disorientation and balance issues due to anticholinergic side effects. Present on Admission?: Yes (3) UTI (urinary tract infection): having symptoms (frequency, foul odor). will Rx. start keflex 500 BID. follow cx. Present on Admission?: Yes (4) Memory loss: send B1 level. 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 consider neuro consult as outpatient for neurospsych testing. may have mild cognitive impairment. Present on Admission?: Yes (5) Mass of right parotid gland: ENT referral at d/c. Has seen Dr Ledezma in past. incidentally seen on MRI brain. Present on Admission?: Yes (6) Cerebrovascular disease: moderate microvascular disease as seen on MRI but no discrete stroke. appreciate neuro eval and recs. risk factor for memory loss. discussed w/ pt and family. Present on Admission?: Yes (7) Hypothyroidism: TSH wnl yesterday. not on replacement meds. anticipate d/c home in AM daughter extensively updated at bedside Subjective right shoulder feels good today. using sling. saw ortho - outpatient fu planned in 2 weeks. daughter at bedside. multiple questions about mild memory loss/cognitive issues going back to last fall 2017. patient herself has noted this. some depression present for some time; has lost interest in activities. vertigo improved today. Review of Systems Constitutional: + fatigue and + weight loss (had lost last year - gained it back slowly); no fever Respiratory: no cough and no dyspnea Cardiovascular: no chest pain Gastrointestinal: no abdominal pain Physical Exam Constitutional: well developed and well nourished; no acute distress looks younger than stated age Eyes: no nystagmus with eye movements ENMT: external ear and nose normal, oropharynx normal Respiratory: normal respiratory effort, lungs clear to auscultation Cardiovascular: Rate/Rhythm: regular rate and regular rhythm Heart Sounds: normal S1 and normal S2; no murmur Vessels: posterior tibial pulses present and dorsalis pedis pulses present; no JVD Gastrointestinal (Abdomen): normal bowel sounds, soft, nontender, no hepatosplenomegaly Neurologic: moves all extremities; no focal motor deficits speech normal Psychiatric: A+Ox3, euthymic affect Results & Data Vital Signs (Past 12 Hours) Vital Signs Temp Pulse Resp BP Pulse Ox 10/27/18 15:12 36.7 C 61 18 123/71 96 10/27/18 10:55 97 Laboratory Results Laboratory Results - last 24 hr 10/26/18 19:49 Urine Color Yellow Urine Appearance Clear Urine pH 6.0 Ur Specific Aubrey 1.012 Urine Protein Negative Urine Glucose (UA) Negative Urine Ketones Negative Urine Blood Negative Urine Nitrite Negative Urine Bilirubin Negative Urine Urobilinogen Negative Ur Leukocyte Esterase 2+ H Urine WBC (Auto) 10-30 H Urine RBC (Auto) 0-4 U Hyaline Cast (Auto) 0 U Epithel Cells (Auto) 5-10 H Urine Bacteria (Auto) 3+ H PG Care Time/CCT Total # of Minutes Spent Total Time Spent with Patient: Total time spent is greater than 50% in coordination of care (as documented) at patient's floor/unit and/or counseling patient: (1) Dislocation of right shoulder joint Encounter type: initial encounter Qualified Code(s): S43.004A - Unspecified dislocation of right shoulder joint, initial encounter (2) UTI (urinary tract infection) Urinary tract infection type: acute cystitis Hematuria presence: without hematuria Qualified Code(s): N30.00 - Acute cystitis without hematuria (3) Hypothyroidism Hypothyroidism type: acquired Qualified Code(s): E03.9 - Hypothyroidism, unspecified
[2018-10-27] MEDS: ASPIRIN 81 MG ECTAB PO SCH (21:00)
[2018-10-28 08:04] LABS: BUN Creatinine Ratio 21.3 (10-20); Calcium 9.1 mg/dl (8.5-10.1); Creatinine Clr Calc Pharmacy 43.5 ml/min; Est GFR (African American) 85.6; Est GFR (Non-African American) 73.9; Potassium 3.6 mmol/L (3.5-5.1)
[2018-10-28] MEDS ORDERED: SACCHAROMYCES BOULARDII 250 MG CAP PO SCH (09:00)
[2018-10-28] MEDS ORDERED: CIPROFLOXACIN 250 MG TAB PO SCH (09:00)
[2018-10-28] MEDS ORDERED: OXYBUTYNIN CHLORIDE XL 5 MG TABCR PO SCH (09:00)
[2018-10-28] MEDS: CHOLECALCIFEROL 1,000 UNITS TAB PO SCH ×2 (09:19→09:50)
[2018-10-28] MEDS: MULTIVITAMIN TAB PO SCH (09:19)
[2018-10-28] MEDS: PANTOprazole 40 MG TAB PO SCH (09:19)
[2018-10-28] MEDS: SENNA 8.6 MG TAB PO SCH (09:19)
--- NOTE | 2018-10-28 11:03 | Discharge Summary ---
Date of Service date of admission - October 26, 2018 date of discharge - October 28, 2018 Admission HPI Per Admitting Provider 87-year-old female with balance issues for quite some time. They have gotten worse recently however. Her family has also noted a change in her affect and occasional altered mental status. She suffered a mechanical fall today dislocating her right shoulder. This was reduced in the ED. No fractures. Head CT scan reveals age-related changes. She does have a wide based gait. No other focal deficits. Brain MRI scan will be obtained and neurological consultation will be requested. Orthopedic consultation will also be requested. Occupational Therapy and physical therapy consults have been placed. Principal Diagnosis fall s/p dislocated right shoulder followed by successful reduction Discharge Exam Constitutional well developed and well nourished; no acute distress ENMT external ear and nose normal, oropharynx normal Respiratory normal respiratory effort, lungs clear to auscultation Cardiovascular Rate/Rhythm: regular rate and regular rhythm Heart Sounds: normal S1 and normal S2; no murmur Vessels: posterior tibial pulses present and dorsalis pedis pulses present; no JVD Gastrointestinal (Abdomen) normal bowel sounds, soft, nontender, no hepatosplenomegaly Musculoskeletal right shoulder in sling Neurologic moves all extremities; no focal motor deficits hand strength 5/5 b/l Psychiatric A+Ox3, euthymic affect Discharge Data Allergies Allergy/AdvReac Type Severity Reaction Status Date / Time adhesive Allergy Mild RASH Verified 10/26/18 13:32 sulfamethoxazole Allergy Unknown RASH/HIVES Verified 10/26/18 13:32 Consultations 1. orthopedics 2. neurology 3. PT, OT Procedures Performed reduction of right shoulder dislocation Ordered Studies 1. CT cervical spine wo con - no fractures. 2. CT head/brain wo con - no acute ICH or pathology. 3. MRI brain wo/w con - IMPRESSION: 1. No evidence of intracranial mass 2. No evidence of acute or subacute infarction 2. 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 There are 2 T2 bright 6 mm lesions within the deep lobe of the right parotid gland. These could represent lymph nodes or small epithelial neoplasms 4. US carotid doppler - no ICA stenosis. Hospital Course (1) Dislocation of right shoulder joint: s/p successful reduction in ER. now with sling immobilization of the right upper extremity for comfort. this can be removed for hygiene purposes. she was asked to NOT perform weightbearing of the right upper extremity. will need to [place] [facility] [place] within 2 weeks for recheck. (2) Vertigo: seen by neurology - etiology not 100% certain but symptoms improved/resolved. inner ear vs central cause vs related to cervical DJD vs other. either way it is improved. meclizine prn. orthostatics were negative. MRI brain was negative for stroke of posterior circulation. as precautionary measure I stopped oxybutinin - this can cause disorientation and balance issues due to anticholinergic side effects. (3) UTI (urinary tract infection): 2nd e.coli. course of cipro recommended. (4) Memory loss: sent B1 level. 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 consider neuro consult as outpatient for neurospsych testing. she may have mild cognitive impairment. previous TSH and B12 levels were normal. (5) Mass of right parotid gland: ENT referral to Dr Ledezma post-discharge. This was incidentally seen on MRI brain. (6) Cerebrovascular disease: moderate microvascular disease as seen on MRI but no discrete stroke. this is certainly a risk factor for memory loss. discussed the MRI results with pt and family. neurology recommended ongoing use of aspirin 81mg daily. (7) Hypothyroidism: History of. TSH was wnl this admission. She is not on replacement meds chronically. Total Time Total Time Spent Total Time Spent (In Minutes): 40 Total Time Includes: Examination of the Patient, Discharge Planning and Medication Reconciliation Discharge Plan Discharge Items Patient Disposition: Home - Home Health Services Reason For Visit: Vertigo; DISLOCATED RIGHT SHOULDER Discharge Diagnosis: 1. vertigo - chronic; improved. 2. dislocated right shoulder with successful reduction in the emergency room. 3. Urinary tract infection ("UTI"). Discharge Goals: Diagnostic testing Activity: As commented below Bathing: No limitations Bathing Comment: OK TO REMOVE RIGHT ARM SLING FOR SHOWERING AND HYGIENE PURPOSES. Weightbearing Comment: DO NOT USE RIGHT ARM FOR ANY PURPOSES; USE SLING AT ALL TIMES. Non-emergency contact: Primary Care Provider and Specialist Call non-emergency contact if: you have any medication questions, your symptoms worsen, your pain is not controlled, your pain is worsening, your pain is unusual for you and your pain is concerning for you Follow-up/Referrals: Matty Fernando MD [Physician] - Kenya Conley DO [Primary Care Provider] - 11/03/18 3:00 pm (See Dr Conley within 1 week) Symone James PA-C [Physician Sewing Techniques Demonstrator] - 01/18/19 9:00 am (Please, follow up at [facility]'s Neurology Office with Symone Jamse PA-C on FridayJanuary 18 at 9:00 am. *The office is located at [address] [place] [address] in [place]. If you need to change this appointment, call the office at [phone].) Jaz Ledezma MD [Surgeon] - 11/02/18 2:45 pm (see Dr Ledezma for parotid gland issue on right - first available appointment. he can also help with your vertigo.) Theodore Roberto DO [Physician] - (see Dr Roberto or one of his partners in 1-2 weeks for dislocated right shoulder ) Diet: Regular Addtl Provider Instructions: You were seen and treated for multiple issues including a dislocated right shoulder, urinary tract infection, and vertigo. The shoulder was reduced in the ER by orthopedics with success. Your vertigo improved while here. Dr Fernando from neurology saw you for this problem and recommends use of meclizine as needed for the vertigo. The MRI of the brain did NOT show any old or new stroke. There was a considerable amount of "microvascular disease changes" in the brain. There is nothing specific to do for this. Dr Fernando recommends simply continuing your aspirin for now. Your ultrasound of the carotid arteries did not show any significant blockage. Incidentally, on your MRI of the brain, 2 tiny cysts vs masses were seen in the right parotid gland which sits in front of the ear. I cannot feel these on exam ination. Your family was also concerned about possible memory loss and periods of confusion intermittently in the last year. Recommendations - 1. cipro 250mg twice daily for 6 more days for your urinary tract infection. 2. take an [id number]-mvr-[id number] probiotic daily for the next week to help prevent diarrhea from the antibiotics. Ask the pharmacist where these are on the shelf. 3. meclizine 12.5mg every 6 hours as needed for vertigo. 4. please STOP your oxybutynin as this medication can sometimes cause unsteadiness, dizziness, and even low-grade confusion. 5. take the MRI brain on the CD to your appointment with Dr Ledezma. 6. wear your sling at all times - including sleep. The sling can be removed for showering and other grooming activities. 7. ok to use the right hand (you can squeeze a "stress ball" lightly in the right hand to keep the right hand strong) but do not use the right arm for any other activities. NO lifting with the right arm. 8. I will call you if your vitamin B1 level is low and you need supplementation. 9. please talk with Dr Conley about possible depression. Follow-up -- see separate section. Return to [facility] if -- * you have fevers over 100.5 degrees * you have severe diarrhea * you have worsening vertigo/dizziness or it is not responding to the meclizine * you have trouble walking * any other concerns Prescriptions: New meclizine 12.5 mg tablet 12.5 mg PO Q6H PRN (Reason: dizziness or vertigo) Qty: 20 RF: 0 Continued cholecalciferol (vitamin D3) 2,000 unit tablet 2,000 units PO QAM RF: 0 multivitamin tablet,chewable 1 tab PO QAM RF: 0 aspirin 81 mg Tablet,Delayed Release (Dr/Ec) 81 mg PO HS RF: 0 Perdiem Overnight Relief 15 mg Tablet 15 mg PO BID RF: 0 Prilosec OTC 20 mg Tablet,Delayed Release (Dr/Ec) 20 mg PO QAM RF: 0 Discontinued oxybutynin chloride 5 mg tablet extended release 24hr 5 mg PO TID RF: 0 Stand-Alone Forms: My [facility]/Other Patient Handouts: Instability Shoulder, ED Dislocation Shoulder Redu Discharge Orders: Discharge Order (Routine); Ordered 10/28/18 Ordered By: Ga Suazo Admission Data Admit Date/Time: 10/26/18 17:37 Attending Provider: Ga Suazo Admit Provider: Porter Rivera Primary Care Provider: Kenya Conley Other Providers: Porter Rivera ; Matty Fernando ; Christ Garcia III ; Symone James ; Ernesto Bangura ; Theodore Roberto Service: Surgical Services Other Interventions: Discharge Summary Assessment (RN) Last Done: 10/28/18 10:39 Pending Studies at Discharge: Yes Studies:: vitamin B1 (thiamine) level DC Date/Time DO NOT enter until pt leaves facility: 10/28/18 12:14
--- NOTE | 2018-11-09 09:12 | Coding Query ---
A supporting diagnosis is required for the test/procedure performed on this patient in order for us to be reimbursed by the patient's insurance. Please provide a supporting diagnosis for the following test/procedure listed below next to the test name along with your signature. *If there is no additional diagnosis for this patient that would support the following test/procedure please document that below next to the test/procedure. Test(s)/Procedure(s) that require a supporting diagnosis: Duplex Neck Artery DIAGNOSIS: ataxia Provider Signature: Porter Rivera MD Date: ___11/12/18____ Thank you [facility] Information Management Once completed, please kindly fax back to [phone] For questions please call [phone] KERVIN
== END 2018-10-28 12:14 | disposition home health service (06) ==
LOC: 3W 11:05 → ED 11:05 → SUATTDRO 17:37 → 3W 18:33
DX: I67.9 Cerebrovascular disease, unspecified; K59.00 Constipation, unspecified; S43.004A Unspecified dislocation of right shoulder joint, initial encounter; R27.0 Ataxia, unspecified; R42 Dizziness and giddiness; N39.0 Urinary tract infection, site not specified; W19.XXXA Unspecified fall, initial encounter; R41.3 Other amnesia; M19.90 Unspecified osteoarthritis, unspecified site; Z79.899 Other long term (current) drug therapy; E03.9 Hypothyroidism, unspecified; Y93.01 Activity, walking, marching and hiking; M81.0 Age-related osteoporosis without current pathological fracture; R32 Unspecified urinary incontinence; I89.9 Noninfective disorder of lymphatic vessels and lymph nodes, unspecified; K21.9 Gastro-esophageal reflux disease without esophagitis; Z79.82 Long term (current) use of aspirin

== ENCOUNTER 2019-08-21 18:11 | Inpatient (IN) ==
--- NOTE | 2019-08-21 18:25 | Emergency Department Note ---
Impression & Plan Fall, Fracture of multiple pubic rami, Left acetabular fracture, Sacral insufficiency fracture ED Provider Note Provider: David Vu MD DATE OF SERVICE: 08/21/2019 CHIEF COMPLAINT: Fall, lower extremity pain HISTORY OF PRESENT ILLNESS: Patient is a 88-year-old female with past medical hi story of GERD, arthritis, and some dementia presenting today after a fall in her driveway. Patient states she had mechanical fall and lost her balance and fell predominantly left hip. Had some pain here but was able to walk to the ambulance stretcher prior to coming in today. Patient had little bit of right knee pain for the ambulance but states her pain is not too bad right now only 1 out of 10 at rest and 6 out of 10 with movement. Denies pain medication prior to arrival. Denies striking her head or LOC. Denies difficulty breathing or chest pain. Denies injury to the upper extremities. Denies any numbness and tingling in the lower extremities. Patient states she here for some x-ray and she does not think she is very badly injured. REVIEW OF SYSTEMS: A total of 6 review of systems was obtained and negative except as stated above in the HPI. PAST MEDICAL HISTORY: As noted above MEDICATIONS: Reviewed medication list and significant includes aspirin SOCIAL HISTORY: Lives at home, non-smoker, PHYSICAL EXAM: GENERAL: alert and oriented in no acute distress on stretcher Head: normocephalic and atraumatic EYES: No injection, discharge or icterus. ENT: Mucous membranes pink and moist. LUNGS: Airway patent. No retractions. Breath sounds clear HEART: Regular rate and rhythm. No chest wall tenderness ABDOMEN: Soft and non-tender, without guarding or rebound. BACK: No flank tenderness. SKIN: Acyanotic, warm, dry, without rashes EXTREMITIES: Without significant swelling of the lower extremities. There is some slight tenderness of the left lateral hip and minimal to moderate pain with ROM here but not shortened or rotated. 2+ DP pulse of the lower extremities. Slight tenderness of the right knee but no significant pain with ROM of the right lower extremity. NEUROLOGICAL: No focal deficits. No aphasia. No facial droop or slurred speech. Neuro intact in the lower feet. Patient's hypertension was referred to hospitalist GCS 15. EK bpm normal sinus rhythm. No PVC. No ST segment elevation or depression. Normal axis and intervals. HOSPITAL COURSE: 1819 Patient was first seen and H&P performed. 1934 Patient reassessed and updated. Patient was still having some pain of her left hip and states that she is unable to walk on it. 2029 patient was updated on findings of fractures. Attempted to contact the patient's family and updated them as well. Given this patient requires admission. Patient's laboratory studies and imaging reviewed. Differential includes Fracture, dislocation, contusion, intra-abdominal, pneumothorax, intrathoracic, intracranial, neurologic, compartment syndrome, rhabdomyolysis, as well as other pathologies. IMPRESSION/MEDICAL DECISION MAKING: Patient presents after mechanical fall. Doubly reviewed syncope work-up this time. Patient denies LOC or striking her head. Complains of some mild left hip pain but not significant shortened or rotated. Complains of some slight pain of her right knee very minimal. X-rays of the left hip and femur as well as the right knee were obtained. Do not believe we need imaging of her head at this time. Do not believe any laboratory studies. Patient was in agreement with this plan. Patient declined pain medication here initially. X-ray showed likely no evidence of fracture or dislocation. Patient on reassessment still with difficulty with pain here and states she cannot ambulate. Given this to exclude occult injury CT of the pelvis and hip were completed. Evidence of an acetabular and some pelvic insufficiency and inferior rami fracture. Patient st ill with pain. Do not think she is in a position to go home and cannot ambulate. Will discuss with the hospitalist. Will obtain basic EKG and laboratory studies. Without significant findings and leukocytosis of unclear significance. Doubt serious infectious source, ?stress. Will need pain control and PT consult. DIAGNOSIS: Fall, left hip pain, pelvic sacral and inferior rami fractures, acetabular fracture DISPOSITION: Further evaluation by the hospitalist Patient was agreeable with this plan. Past Med/Surg History Social History Preferred Language: [place]ese Communication Ability: Effective Visual Impairment: Limited Hearing Ability: Normal Ship Engineer Required: No Beliefs That Will Affect Care: None marital status: / Current Living Situation: Family Current Living Situation Comment: Living w/ daughter current occupational status: retired Feels Safe at Home: Yes Smoking Status: Never smoker Hx Alcohol Use: No Hx Substance Use: No Childhood Exposure to Second-Hand Smoke: No Diet Comment: regular caffeine: Yes during the past year weight has: remained stable Dental Care, Regularly: Yes Physical Activity Frequency: Does not Exercise Seatbelt Use: always Sunscreen Use: Yes Allergies Allergies Allergy/AdvReac Type Severity Reaction Status Date / Time adhesive Allergy Mild RASH Verified 08/21/19 19:32 SULFA DRUGS Allergy Intermediate RASH/HIVES Uncoded 08/21/19 19:32 Home Meds Home Medications Medication Instructions Recorded Confirmed cholecalciferol (vitamin D3) 50 2,000 units PO QAM tab 10/09/18 08/21/19 mcg (2,000 unit) tablet multivitamin 1 tab PO QAM 10/09/18 08/21/19 Perdiem Overnight Relief 15 mg PO BID 10/26/18 08/21/19 aspirin 81 mg PO HS 10/26/18 08/21/19 calcium carb,cit ER 600 mg 1 tab PO DAILY tab 11/11/18 08/21/19 calcium-vit D3 500 unit tablet,ext.release [id number]-yibtfxy-min 2 tab PO DAILY tab 11/12/18 08/21/19 3,300 unit-5 mg-200mg-75 unit tablet ER omeprazole 20 mg capsule,delayed 20 mg PO DAILY PRN 03/19/19 08/21/19 release Previous Rx's Medication Instructions Recorded meclizine 25 mg tablet 25 mg PO TID PRN 30 Days #90 tab 01/18/19 escitalopram oxalate 10 mg tablet 10 mg PO DAILY #90 tab 07/01/19 Results & Data (ED) Vital Signs Vital Signs - 24 hr 08/21/19 18:23 08/21/19 20:01 08/21/19 22:00 Temperature 37.1 C Temperature Source Oral Pulse Rate 67 Pulse Rate [Right Finger] 65 Pulse Rhythm [Right Finger] Regular Pulse Strength [Right Finger] Normal Respiratory Rate 20 18 Respiratory Effort / Characteristics Non-Labored Respiratory Depth Normal Respiratory Pattern Regular Blood Pressure 155/71 H Blood Pressure [Right Arm] 138/63 133/73 Blood Pressure Mean 99 Blood Pressure Mean [Right Arm] 88 93 Blood Pressure Position [Right Arm] Lying Pulse Oximetry 95 95 Oxygen Delivery Method Room Air Room Air Sepsis Recent Fever Within 48 Hours No Sepsis New/Unexplained Change in Mental Status No Sepsis Action Taken by Nursing No Action Required Laboratory Data Result diagrams: 08/21/19 20:49 08/21/19 20:49 Lab Results 08/21/19 08/21/19 Range/Units 20:49 20:49 WBC 13.13 H (4.8-10.8) K/uL RBC 4.53 (4.2-5.4) M/uL Hgb 13.4 (12.0-16.0) g/dL Hct 40.7 (37-47) % MCV 89.8 (80-100) fL MCH 29.6 (25-34) pg MCHC 32.9 (32-36) g/dL RDW Std Deviation 42.0 (36.4-46.3) fL RDW Coeff of Dg 12.9 (11.5-14.5) % Plt Count 173 (130-400) K/uL MPV 10.8 H (7.4-10.4) fL Immature Gran % (Auto) 0.6 % Neut % (Auto) 76.7 % Lymph % (Auto) 15.7 % Brown % (Auto) 5.7 % Eos % (Auto) 1.1 % Baso % (Auto) 0.2 % Immature Gran # (Auto) 0.08 H (0.00-0.02) K/uL Neut # (Auto) 10.07 H (1.4-6.5) K/uL Lymph # (Auto) 2.06 (1.2-3.4) K/uL Brown # (Auto) 0.75 H (0.11-0.59) K/uL Eos # (Auto) 0.14 (0-0.5) K/uL Baso # (Auto) 0.03 (0-0.2) K/uL Sodium 140 (136-145) mmol/L Potassium 3.6 (3.5-5.1) mmol/L Chloride 106 (98-107) mmol/L Carbon Dioxide 27 (21-32) mmol/L Anion Gap 7.0 (3-11) BUN 16 (7-18) mg/dl Creatinine 0.78 (0.6-1.2) mg/dl Est Cr Clr Drug Dosing 44.7 ml/min Est GFR ( Amer) 79.8 Est GFR (Non-Af Amer) 68.8 BUN/Creatinine Ratio 21.0 H (10-20) Glucose 97 (70-99) mg/dl Calcium 9.6 (8.5-10.1) mg/dl Administered Medications Discontinued Medications Acetaminophen (Tylenol) 1,000 mg PO NOW STA Stop: 08/21/19 20:35 Last Admin: 08/21/19 20:41 Dose: 1,000 mg Documented by: [id number] Discharge Plan Visit Data Chief Complaint: Fall Stated Complaint: fall/ L hip pain ED Provider: David Vu Discharge Problem: Fall, Fracture of multiple pubic rami, Left acetabular fracture, Sacral insufficiency fracture Patient Disposition: Admitted As Inpatient Discharge Problem: Fall Qualifiers: Encounter type: initial encounter Qualified Code(s): W19.XXXA - Unspecified fall, initial encounter Fracture of multiple pubic rami Qualifiers: Encounter type: initial encounter Fracture type: closed Laterality: left Qualified Code(s): S32.592A - Other specified fracture of left pubis, initial encounter for closed fracture Left acetabular fracture Qualifiers: Encounter type: initial encounter Sublocation of acetabulum: anterior column Fracture type: closed Fracture alignment: nondisplaced Qualified Code(s): S32.435A - Nondisplaced fracture of anterior column [iliopubic] of left acetabulum, initial encounter for closed fracture Sacral insufficiency fracture Qualifiers: Encounter type: initial encounter Qualified Code(s): M84.48XA - Pathological fracture, other site, initial encounter for fracture
--- NOTE | 2019-08-21 19:14 | XRay Report ---
XR pelvis 1-2V routine, XR femur LT 2V routine CLINICAL HISTORY: Fall. Left pelvic and leg pain. COMPARISON STUDY: None. FINDINGS: No fracture or dislocation within the pelvis, hips, or left femur. The sacrum is intact. De generative changes seen within the lower lumbar spine. 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 No le ft knee effusion. Soft tissues are unremarkable. Mild osteoarthritis within the bilateral hips. IMPRESSION: No fractures within the pelvis, hips, or left femur. ACT 112: Negative or not required by law. Electronically signed by: Edward Cuevas M.D. 08/21/2019 7:13 PM
--- NOTE | 2019-08-21 19:15 | XRay Report ---
RIGHT KNEE 3 VIEWS HISTORY: Right knee pain. fall, slight pain COMPARISON: Right knee 03/19/2011. FINDINGS: There is no fracture or dislocation. Trace knee effusion. No significant soft tissue swelli ng. There is a right total knee arthroplasty. The hardware appears intact. IMPRESSION: 1. No fractures within the right knee. 2. Trace right knee effusion. ACT 112: Negative or not required by law. Electronically signed by: Edward Cuevas M.D. 08/21/2019 7:14 PM
--- NOTE | 2019-08-21 20:07 | CT Scan Report ---
CT pelvis wo con, CT hip LT wo con HISTORY: Fall. L pelvic hip pain TECHNIQUE: Multiaxial CT images of the pelvis and left hip were performed without the use of intraven ous contrast. COMPARISON STUDY: Pelvis and left femur 08/21/2019. FINDINGS: Nondisplaced fractures within the left inferior pubic ramus as well as a nondisplaced fract ure within the junction of the anterior column of the left acetabulum and left superior pubic ramus. No fractures within the proximal left femur. No dislocation. The right hip appears intact. Subtle scl erosis within the left sacrum favors an insufficiency fracture. Urua-tv-jbbbrjhc osteoarthritis withi n the bilateral hips. Degenerative changes within the lumbar spine. Small fat-containing umbilical he rnia. Soft tissue contusion within the left lateral hip. Colonic diverticulosis. IMPRESSION: 1. Nondisplaced fractures within the left pelvis involving the superior and inferior pubic rami as we ll as the anterior column of the left acetabulum. 2. Probable insufficiency fracture within the left sacrum. ACT 112: Negative or not required by law. Electronically signed by: Edward Cuevas M.D. 08/21/2019 8:06 PM
[2019-08-21] MEDS ORDERED: ACETAMINOPHEN 500 MG TAB PO STA (20:34)
[2019-08-21 21:09] LABS: Basophils # (auto) 0.03 K/uL (0-0.2); Basophils % (auto) 0.2 %; Eosinophils # (auto) 0.14 K/uL (0-0.5); Eosinophils % (auto) 1.1 %; Hematocrit (blood only) 40.7 % (37-47); Hemoglobin 13.4 g/dL (12.0-16.0); Immature Granulocytes # (auto) 0.08 K/uL (0.00-0.02); Immature Granulocytes % (auto) 0.6 %; Lymphocytes # (auto) 2.06 K/uL (1.2-3.4); Lymphocytes % (auto) 15.7 %; Mean Corpuscular Hemoglobin 29.6 pg (25-34); Mean Corpuscular Hgb Conc 32.9 g/dL (32-36); Mean Corpuscular Volume 89.8 fL (80-100); Mean Platelet Volume 10.8 fL (7.4-10.4); Monocytes # (auto) 0.75 K/uL (0.11-0.59); Monocytes % (auto) 5.7 %; Neutrophils # (auto) 10.07 K/uL (1.4-6.5); Neutrophils % (auto) 76.7 %; Platelet Count 173 K/uL (130-400); RDW Coefficient of Variation 12.9 % (11.5-14.5); Red Blood Count 4.53 M/uL (4.2-5.4); White Blood Count 13.13 K/uL (4.8-10.8)
--- NOTE | 2019-08-21 21:22 | XRay Report ---
XR chest 1V portable HISTORY: fall COMPARISON: Chest 10/26/2018. FINDINGS: The lungs are clear. Cardiac silhouette is normal in size. No pleural effusions. No pneumot horax. Advanced degenerative changes within the left shoulder, unchanged. IMPRESSION: No acute process. ACT 112: Negative or not required by law. Electronically signed by: Edward Cuevas M.D. 08/21/2019 9:21 PM
[2019-08-21 21:28] LABS: Calcium 9.6 mg/dl (8.5-10.1); Creatinine Clr Calc Pharmacy 44.7 ml/min; Est GFR (African American) 79.8; Est GFR (Non-African American) 68.8; Potassium 3.6 mmol/L (3.5-5.1)
--- NOTE | 2019-08-21 22:20 | History & Physical Report ---
Date of Service August 21, 2019 Assessment & Plan (1) Fall: Ms. rose mary Ovalle is a very pleasant 88 year old woman with PMH of hypothyroidism, depression, dementia, osteoporosis, who presents after a fall with nondisplaced pelvic fractures Pelvic Fractures Non displaced pelvic fractures Unlikely to need surgery Will try to get pain adequately controlled so she can work with physical therapy Tylenol for mild pain if that fails toradol, if that fails, oxycodone Orthopedic surgery consulted May need ongoing therapy post discharge Fall Appears to be completely mechanical Patient was already receiving physical therapy for lower limb strengthening per primary care provider Will likely need continued outpatient PT Constipation Continuing patient's daily laxative If patient is not able to have bowel movement secondary to pain and pain medications can try miralax Will continue to monitor Hypothyroidism Stable off of medication per primary care provider Will get TSH level GERD Continuing home pantoprazole Depression Poorly controlled, recently increased to 10 mg lexapro Will continue here in hospital Dementia Progressive, sounds like steep steady decline from her baseline in last year Able to converse easily but gets confused on time and situation but able to be redirected and shows comprehension DVT PPx: Lovenox F/E/N: NSS 65 mls/hour regular diet Dispo: Med/Surg pending ortho evaluation and PT/OT. May require rehab placement DNR/DNI (2) Fracture of multiple pubic rami: (3) Dementia: (4) Depression: (5) Macular degeneration: (6) Osteoporosis: (7) Hypothyroidism: (8) Constipation: (9) GERD without esophagitis: History of Present Illness Chief Complaint: Fall, Pelvic Fracture Primary Care Provider: Kenya Conley DO Rose Mary Ovalle is an 88 year old woman with a past medical history significant for OA, depression, hypothyroidism, macular degenereation, hearing loss, urinary incontinence, GERD, chronic constipation, and progressive memory loss, who presents today after a mechanical fall at home. Staying with her family and had a misstep while stepping down off of a concrete walkway into the yard. She tells me she has fallen there several times. This time she had pain in her leg which caused her great difficulty walking. They decided to call the ambulance and bring her in for imaging. She denies hitting her head, any loss of consciousness, any lightheadedness prior to falling, any history of fainting or seizures. She has been in her usual state of health recently, denies chest pain, shortness of breath, no fatigue, no fevers or chills, no recent sick contacts, no recent travel, no abdominal pain, no nausea or vomiting, no urinary discomfort. She does not feel any pain at rest but feels about 7 or 8 out of ten pain while walking which she is still able to do. She otherwise has no concerns. On presentation to ED patient received tylenol and x rays of the hip knee and pelvis which showed no fractures, patient was set to be discharged home but still couldn't bear weight so CT pelvis was ordered shich showed nondisplaced fractures within the left inferior and superior pubic rami as well as the anterior column of the left acetabulum and a possible insufficiency fracture within the left sacrum. Decision was made to admit to hospital service. She wishes to be DNR, DNI. Allergies Allergy/AdvReac Type Severity Reaction Status Date / Time adhesive Allergy Mild RASH Verified 08/21/19 19:32 SULFA DRUGS Allergy Intermediate RASH/HIVES Uncoded 08/21/19 19:32 Home Medications Home Medications Medication Instructions Recorded Confirmed Type cholecalciferol (vitamin D3) 50 2,000 units PO QAM tab 10/09/18 08/21/19 History mcg (2,000 unit) tablet multivitamin 1 tab PO QAM 10/09/18 08/21/19 History Perdiem Overnight Relief 15 mg PO BID 10/26/18 08/21/19 History aspirin 81 mg PO HS 10/26/18 08/21/19 History calcium carb,cit ER 600 mg 1 tab PO DAILY tab 11/11/18 08/21/19 History calcium-vit D3 500 unit tablet,ext.release [id number]-M-[id number]-kzpacyl-min 2 tab PO DAILY tab 11/12/18 08/21/19 History 3,300 unit-5 mg-200mg-75 unit tablet ER meclizine 25 mg tablet 25 mg PO TID PRN 30 Days #90 tab 01/18/19 08/21/19 Rx omeprazole 20 mg capsule,delayed 20 mg PO DAILY PRN 03/19/19 08/21/19 History release escitalopram oxalate 10 mg tablet 10 mg PO DAILY #90 tab 07/01/19 08/21/19 Rx Past Med/Surg History Medical History Arthritis Asthma Cerebrovascular disease Constipation chronic Dementia Depression Dislocation of right shoulder joint GERD without esophagitis Grief Hypokalemia Hypothyroidism Macular degeneration Mass of right parotid gland Osteoporosis Urinary incontinence Surgical History S/P cataract extraction S/P cholecystectomy S/P dilatation and curettage S/P tonsillectomy S/P total hysterectomy and bilateral salpingo-oophorectomy S/P total knee arthroplasty b/l knees Family History Mother Ovarian cancer Colorectal cancer Father Myocardial infarction Denies family history of Prostate cancer Breast cancer Lung cancer Social History Preferred Language: Norwegian Communication Ability: Effective Visual Impairment: Limited Hearing Ability: Normal Children'S Court Magistrate Required: No Beliefs That Will Affect Care: None marital status: / Current Living Situation: Family Current Living Situation Comment: Living w/ daughter current occupational status: retired Other Information That Helps Us Care for You: No Feels Safe at Home: Yes Safety Concerns: Feels Safe At This Time Smoking Status: Never smoker Do You Dip or Chew Tobacco: No ; Second Hand Exposure: No ; Tobacco Cessation Education Requested by Patient: No Hx Alcohol Use: No Hx Substance Use: No Childhood Exposure to Second-Hand Smoke: No Diet Comment: regular caffeine: Yes during the past year weight has: remained stable Dental Care, Regularly: Yes Physical Activity Frequency: Does not Exercise Seatbelt Use: always Sunscreen Use: Yes Review of Systems Review of Systems: All systems reviewed & are unremarkable except as noted in HPI & below Physical Exam Physical Exam: Constitutional: Well appearing 88 year old woman appearing stated age resting comfortably in bed in no apparent distress Eyes: EOMMI bilaterally, PERRLA bilaterally ENMT: NAD Respiratory: No increased work of breathing or accessory muscle use, lung sounds vesicular in all lung carl Cardiovascular: Heart sounds dual, no m/r/s/g, no lower limb edema, peripheral pulses intact including affected left DP pulse which was strong and equal to right sided DP GI: Abdomen Soft nontender, no masses MSK: Patient with pain on abduction and elevation of the hip bilaterally. No pain on extension or flexion of knee joint, good strength equal in all degrees of motion of hip knee and ankle Neuro: Patient intact to sensation of lower limbs equally Results & Data Results & Data ([facility]) Vital Signs (Past 12 Hours) Vital Signs Temp Pulse Pulse Resp BP BP Pulse Ox 08/21/19 20:01 65 18 138/63 95 08/21/19 18:23 37.1 C 67 20 155/71 H 95 Supervising Physician Co-Signing Physician Notes Attending addendum: I have physically seen this patient, have supervised the medical residents activities, and agree with the H&P unless as otherwise noted. Assessment and Plan: Nondisplaced left superior and inferior pubic rami fractures/left acetabular fracture- Pain relatively easily controlled with oral Tylenol. Not a surgical process. Consult PT/OT. Consult orthopedic surgery. Has a good support system at home, where she lives with her daughter, and would likely be best served to return directly home if possible. Remainder of orders and notations as noted. Resident Activity Tracking Resident Involvement: Resident Care Provided Care Provided: Adult Hospital Medicine (1) Fracture of multiple pubic rami Encounter type: initial encounter Fracture type: closed Laterality: left Qualified Code(s): S32.592A - Other specified fracture of left pubis, initial encounter for closed fracture (2) Hypothyroidism Hypothyroidism type: acquired Qualified Code(s): E03.9 - Hypothyroidism, unspecified (3) Fall Encounter type: initial encounter Qualified Code(s): W19.XXXA - Unspecified fall, initial encounter
[2019-08-21] MEDS ORDERED: MECLIZINE HCL 25 MG TAB PO PRN (23:33)
[2019-08-21] MEDS ORDERED: ONDANSETRON INJ 2 MG/ML 2 ML VIAL IV PRN (23:33)
[2019-08-21] MEDS ORDERED: OXYCODONE HCL IR 5 MG TAB (IMMEDIATE RELEASE) PO PRN (23:33)
[2019-08-21] MEDS ORDERED: KETOROLAC 30 MG/ML VIAL IV PRN (23:33)
[2019-08-21] MEDS ORDERED: ACETAMINOPHEN 325 MG TAB PO PRN (23:33)
[2019-08-21] MEDS ORDERED: PANTOprazole 40 MG TAB PO PRN (23:33)
[2019-08-22 07:09] LABS: Appearance Urine Clear (Clear); Bacteria Urine Automated Negative (Negative); Bilirubin Urine Negative (Negative); Blood Urine Negative (Negative); Cast Urine Automated 0 /lpf (0-5); Color Urine Yellow; Glucose Urine UA Negative (Negative); Ketones Urine Negative (Negative); Leukocyte Esterase Urine 1+ (Negative); Nitrite Urine Negative (Negative); Protein Urine Negative (Negative); RBC Urine Automated 0-4 /hpf (0-4); Specific Gravity Urine 1.014 (1.000-1.030); Urobilinogen Urine Negative (Negative); pH Urine 6.5 (4.5-7.5)
[2019-08-22 08:53] LABS: Basophils # (auto) 0.03 K/uL (0-0.2); Basophils % (auto) 0.3 %; Eosinophils # (auto) 0.36 K/uL (0-0.5); Eosinophils % (auto) 3.9 %; Hematocrit (blood only) 37.7 % (37-47); Hemoglobin 12.6 g/dL (12.0-16.0); Immature Granulocytes # (auto) 0.03 K/uL (0.00-0.02); Immature Granulocytes % (auto) 0.3 %; Lymphocytes # (auto) 1.61 K/uL (1.2-3.4); Lymphocytes % (auto) 17.6 %; Mean Corpuscular Hemoglobin 29.9 pg (25-34); Mean Corpuscular Hgb Conc 33.4 g/dL (32-36); Mean Corpuscular Volume 89.5 fL (80-100); Monocytes # (auto) 0.66 K/uL (0.11-0.59); Monocytes % (auto) 7.2 %; Neutrophils # (auto) 6.44 K/uL (1.4-6.5); Neutrophils % (auto) 70.7 %; Platelet Count 166 K/uL (130-400); RDW Coefficient of Variation 13.1 % (11.5-14.5); RDW Standard Deviation 42.6 fL (36.4-46.3); Red Blood Count 4.21 M/uL (4.2-5.4); White Blood Count 9.13 K/uL (4.8-10.8)
--- NOTE | 2019-08-22 08:53 | Orthopedic Consultation ---
Date of Consultation August 22, 2019 Assessment & Plan (1) Fracture of multiple pubic rami: No surgery indicated. The insufficiency fractures about the pelvis will require physical therapy and pain control. It may be several weeks until she has comfort with walking. She can be weightbearing as tolerated. Recommend PT/OT evaluation. Please contact with further questions. I did discuss the diagnosis, prognosis and recommended treatment with her daughter, Deepthi, today on the phone. She should follow-up with me or another orthopedic provider in 2 to 3 weeks for repeat x-rays of her pelvis. (2) Sacral insufficiency fracture: History of Present Illness Reason for Consultation: Left inferior pubic rami and superior pubic rami fractures. Attending Physician: Cb Melendez MD History of Present Illness 88 year old F with a past medical history significant for OA, depression, hypothyroidism, osteoporosis, and progressive memory loss, admitted from the emergency room after a mechanical fall at home resulting in left hip pain. Emergency room evaluation revealed fractures of the left superior and inferior pubic rami and potential an insufficiency fracture of the left sacrum. She apparently fell at a family member's house on the concrete. She has had a prior fall history. Allergies Allergy/AdvReac Type Severity Reaction Status Date / Time adhesive Allergy Mild RASH Verified 08/21/19 19:32 SULFA DRUGS Allergy Intermediate RASH/HIVES Uncoded 08/21/19 19:32 Home Medications Home Medications Medication Instructions Recorded Confirmed Type cholecalciferol (vitamin D3) 50 2,000 units PO QAM tab 10/09/18 08/21/19 History mcg (2,000 unit) tablet multivitamin 1 tab PO QAM 10/09/18 08/21/19 History Perdiem Overnight Relief 15 mg PO BID 10/26/18 08/21/19 History aspirin 81 mg PO HS 10/26/18 08/21/19 History calcium carb,cit ER 600 mg 1 tab PO DAILY tab 11/11/18 08/21/19 History calcium-vit D3 500 unit tablet,ext.release [id number]-M-D-[id number]-iqoivsn-min 2 tab PO DAILY tab 11/12/18 08/21/19 History 3,300 unit-5 mg-200mg-75 unit tablet ER meclizine 25 mg tablet 25 mg PO TID PRN 30 Days #90 tab 01/18/19 08/21/19 Rx omeprazole 20 mg capsule,delayed 20 mg PO DAILY PRN 03/19/19 08/21/19 History release escitalopram oxalate 10 mg tablet 10 mg PO DAILY #90 tab 07/01/19 08/21/19 Rx Patient History Medical History Arthritis Asthma Cerebrovascular disease Constipation chronic Dementia Depression Dislocation of right shoulder joint GERD without esophagitis Grief Hypokalemia Hypothyroidism Macular degeneration Mass of right parotid gland Osteoporosis Urinary incontinence Surgical History S/P cataract extraction S/P cholecystectomy S/P dilatation and curettage S/P tonsillectomy S/P total hysterectomy and bilateral salpingo-oophorectomy S/P total knee arthroplasty b/l knees Family History Mother Ovarian cancer Colorectal cancer Father Myocardial infarction Denies family history of Prostate cancer Breast cancer Lung cancer Social History Preferred Language: Citizen Of [place] Communication Ability: Effective Visual Impairment: Limited Hearing Ability: Normal Board Stacker Required: No Beliefs That Will Affect Care: None marital status: / Current Living Situation: Family Current Living Situation Comment: Living w/ daughter current occupational status: retired Other Information That Helps Us Care for You: No Feels Safe at Home: Yes Safety Concerns: Feels Safe At This Time Smoking Status: Never smoker Do You Dip or Chew Tobacco: No ; Second Hand Exposure: No ; Tobacco Cessation Education Requested by Patient: No Hx Alcohol Use: No Hx Substance Use: No Childhood Exposure to Second-Hand Smoke: No Diet Comment: regular caffeine: Yes during the past year weight has: remained stable Dental Care, Regularly: Yes Physical Activity Frequency: Does not Exercise Seatbelt Use: always Sunscreen Use: Yes Review of Systems Review of Systems: All systems reviewed & are unremarkable except as noted in HPI & below Physical Exam Physical Exam: Pelvis: She is focally tender over the left groin and left ASIS. The pelvis is stable to anterior and lateral compression. Left lower extremity: There is some ecchymosis settling about her greater trochanter. she has no discomfort with logroll. She does have discomfort with attempts at straight leg raise. With active assistance she can achieve 90 degrees of hip flexion but this is uncomfortable. She does have full active range of motion of her ankle and toes. She is neurovascular intact. Right lower extremity: She has no discomfort with logroll. She can perform a straight leg raise but has left hip pain. She can flex and extend beyond 90 degrees. She is neurovascularly intact distally. Constitutional: WD/WN, vitals as above well groomed and comfortable; no acute distress and not ill appearing Eyes: PERRL, conjunctivae normal, anicteric sclerae ENMT: external ear and nose normal, oropharynx normal Respiratory: normal respiratory effort; no respiratory distress Cardiovascular: Vessels: posterior tibial pulses present and dorsalis pedis pulses present Extremities: normal capillary refill Musculoskeletal: no cyanosis or clubbing, extremities motor strength 5/5 Skin: no rashes, warm and dry Psychiatric: Orientation: alert, oriented to place and cooperative Results & Data ([facility]) Vital Signs (Past 12 Hours) Vital Signs Temp Pulse Resp BP BP Pulse Ox 08/22/19 07:18 37.3 C 66 16 122/70 93 08/21/19 23:35 133/73 08/21/19 23:29 37.1 C 71 16 127/72 95 08/21/19 23:20 37.1 C 71 16 127/72 95 08/21/19 22:00 133/73 Plain films of the pelvis and bilateral hips were unrevealing. CT scan demonstrated potential insufficiency fracture of the left sacrum that is minimally displaced and insufficiency fractures of the superior and inferior pubic rami. There is some extension near the left anterior column. There is no intra-articular involvement. PG Care Time/CCT Total # of Minutes Spent Total Time Spent with Patient: Total time spent is greater than 50% in coordination of care (as documented) at patient's floor/unit and/or counseling patient: Coding Level of Care Code 63384 Initial Inpt Care Lvl 3 Diagnoses Fracture of multiple pubic rami S32.592A Encounter type: initial encounter Fracture type: closed Laterality: left Sacral insufficiency fracture M84.48XA Encounter type: initial encounter (1) Sacral insufficiency fracture Encounter type: initial encounter Qualified Code(s): M84.48XA - Pathological fracture, other site, initial encounter for fracture (2) Fracture of multiple pubic rami Encounter type: initial encounter Fracture type: closed Laterality: left Qualified Code(s): S32.592A - Other specified fracture of left pubis, initial encounter for closed fracture
[2019-08-22] MEDS: MULTIVITAMIN TAB PO SCH (09:20)
[2019-08-22] MEDS: CALCIUM 600MG + VIT D 400 IU TAB PO SCH (09:20)
[2019-08-22] MEDS: ESCITALOPRAM OXALATE 10 MG TAB PO SCH (09:20)
[2019-08-22] MEDS: CEROVITE ADV FORMULA TAB PO SCH (09:22)
[2019-08-22] MEDS: SENNA 8.6 MG TAB PO SCH ×2 (09:22→20:00)
[2019-08-22] MEDS: ENOXAPARIN INJ 40 MG/0.4 ML SYR SQ SCH (09:22)
[2019-08-22] MEDS: CHOLECALCIFEROL 1,000 UNITS 25 MCG TAB PO SCH (09:22)
--- NOTE | 2019-08-22 09:51 | Electrocardiogram Report ---
Test Reason : Blood Pressure : / mmHG Vent. Rate : 069 BPM Atrial Rate : 069 BPM P-R Int : 190 ms QRS Dur : 080 ms QT Int : 408 ms P-R-T Axes : 075 052 061 degrees QTc Int : 437 ms Normal sinus rhythm Normal ECG When compared with ECG of 26-OCT-2018 12:37, No significant change was found Confirmed by Petar Brown ([id number]) on 08/22/2019 9:51:25 AM Referred By: REFERRED SELF Confirmed By:Petar Brown
--- NOTE | 2019-08-22 12:00 | Hospitalist Progress Note ---
Date of Service August 22, 2019 Assessment & Plan (1) Fall: Mechanical Non displaced pelvic fractures Pain control with tylenol, toradol. oxycodone for breakthrough pain Orthopedic surgery consulted Conservative treatment at this time PT/OT (2) Fracture of multiple pubic rami: Noted on imaging. See #1 Appears to be completely mechanical Patient was already receiving physical therapy for lower limb strengthening per primary care provider Will likely need continued outpatient PT (3) Dementia: Worsening since March per daughter (4) Depression: Continue home escitalopram 10mg (5) Cerebrovascular disease: Continue home ASA (6) Urinary incontinence: Noted (7) Macular degeneration: Continue home meds (8) Hypothyroidism: No longer on any medications TSH pending (9) GERD without esophagitis: Continue PPI (10) DVT prophylaxis: Lovenox Dispo: PT/OT evals pending, may need rehab at discharge Admission and Anticipated Discharge Date Admission Date: August 21, 2019 Subjective Patient evaluated this morning. Intermittent periods of confusion. Denies pain currently unless ambulating. Denies any fevers, chills, chest pain, shortness of breath, abdominal pain, n/v/d at this time. Per nursing, patient is cognitively impaired at baseline and has moved in with her daughter in March who has also noticed a significant decline over the past several months. Plan for orthopedic evaluation and PT/OT with possible need for placement at discharge. Review of Systems Review of Systems: All systems reviewed & are unremarkable except as noted in HPI & below Physical Exam Constitutional: WD/WN, vitals as above no acute distress Eyes: + anicteric sclerae and PERRL Respiratory: normal respiratory effort, lungs clear to auscultation Cardiovascular: RRR, no murmur, no edema Gastrointestinal (Abdomen): normal bowel sounds, soft, nontender, no hepatosplenomegaly Musculoskeletal: Tender to palpation over LEFT ASIS/groin. Ecchymosis to LLE. NVI, 2+ dp, pt pulses bilaterally Skin: warm, dry Neurologic: patellar DTR's 2+ bilat, sensation intact Psychiatric: Orientation: alert, oriented to person, oriented to place and cooperative Lymphatic: no cervical or axillary lymphadenopathy Results & Data Results & Data ([facility]) Vital Signs (Past 12 Hours) Vital Signs Temp Pulse Resp BP Pulse Ox 08/22/19 07:18 37.3 C 66 16 122/70 93 Laboratory Results 08/22/19 08/22/19 08/21/19 Range/Units 08:22 06:45 20:49 WBC 9.13 (4.8-10.8) K/uL RBC 4.21 (4.2-5.4) M/uL Hgb 12.6 (12.0-16.0) g/dL Hct 37.7 (37-47) % MCV 89.5 (80-100) fL MCH 29.9 (25-34) pg MCHC 33.4 (32-36) g/dL RDW Std Deviation 42.6 (36.4-46.3) fL RDW Coeff of Dg 13.1 (11.5-14.5) % Plt Count 166 (130-400) K/uL MPV 11.0 H (7.4-10.4) fL Immature Gran % (Auto) 0.3 % Neut % (Auto) 70.7 % Lymph % (Auto) 17.6 % [place] % (Auto) 7.2 % Eos % (Auto) 3.9 % Baso % (Auto) 0.3 % Immature Gran # (Auto) 0.03 H (0.00-0.02) K/uL Neut # (Auto) 6.44 (1.4-6.5) K/uL Lymph # (Auto) 1.61 (1.2-3.4) K/uL [place] # (Auto) 0.66 H (0.11-0.59) K/uL Eos # (Auto) 0.36 (0-0.5) K/uL Baso # (Auto) 0.03 (0-0.2) K/uL Sodium 140 (136-145) mmol/L Potassium 3.6 (3.5-5.1) mmol/L Chloride 106 (98-107) mmol/L Carbon Dioxide 27 (21-32) mmol/L Anion Gap 7.0 (3-11) BUN 16 (7-18) mg/dl Creatinine 0.78 (0.6-1.2) mg/dl Est Cr Clr Drug Dosing 44.7 ml/min Est GFR ( Amer) 79.8 Est GFR (Non-Af Amer) 68.8 BUN/Creatinine Ratio 21.0 H (10-20) Glucose 97 (70-99) mg/dl Calcium 9.6 (8.5-10.1) mg/dl Urine Color Yellow Urine Appearance Clear (Clear) Urine pH 6.5 (4.5-7.5) Ur Specific [place] 1.014 (1.000-1.030) Urine Protein Negative (Negative) Urine Glucose (UA) Negative (Negative) Urine Ketones Negative (Negative) Urine Blood Negative (Negative) Urine Nitrite Negative (Negative) Urine Bilirubin Negative (Negative) Urine Urobilinogen Negative (Negative) Ur Leukocyte Esterase 1+ H (Negative) Urine WBC (Auto) 10-30 H (0-5) /hpf Urine RBC (Auto) 0-4 (0-4) /hpf U Hyaline Cast (Auto) 0 (0-5) /lpf U Epithel Cells (Auto) 10-20 H (0-5) /lpf Urine Bacteria (Auto) Negative (Negative) 08/21/19 Range/Units 20:49 WBC 13.13 H (4.8-10.8) K/uL RBC 4.53 (4.2-5.4) M/uL Hgb 13.4 (12.0-16.0) g/dL Hct 40.7 (37-47) % MCV 89.8 (80-100) fL MCH 29.6 (25-34) pg MCHC 32.9 (32-36) g/dL RDW Std Deviation 42.0 (36.4-46.3) fL RDW Coeff of Dg 12.9 (11.5-14.5) % Plt Count 173 (130-400) K/uL MPV 10.8 H (7.4-10.4) fL Immature Gran % (Auto) 0.6 % Neut % (Auto) 76.7 % Lymph % (Auto) 15.7 % [place] % (Auto) 5.7 % Eos % (Auto) 1.1 % Baso % (Auto) 0.2 % Immature Gran # (Auto) 0.08 H (0.00-0.02) K/uL Neut # (Auto) 10.07 H (1.4-6.5) K/uL Lymph # (Auto) 2.06 (1.2-3.4) K/uL [place] # (Auto) 0.75 H (0.11-0.59) K/uL Eos # (Auto) 0.14 (0-0.5) K/uL Baso # (Auto) 0.03 (0-0.2) K/uL Sodium (136-145) mmol/L Potassium (3.5-5.1) mmol/L Chloride (98-107) mmol/L Carbon Dioxide (21-32) mmol/L Anion Gap (3-11) BUN (7-18) mg/dl Creatinine (0.6-1.2) mg/dl Est Cr Clr Drug Dosing ml/min Est GFR ( Amer) Est GFR (Non-Af Amer) BUN/Creatinine Ratio (10-20) Glucose (70-99) mg/dl Calcium (8.5-10.1) mg/dl Urine Color Urine Appearance (Clear) Urine pH (4.5-7.5) Ur Specific [place] (1.000-1.030) Urine Protein (Negative) Urine Glucose (UA) (Negative) Urine Ketones (Negative) Urine Blood (Negative) Urine Nitrite (Negative) Urine Bilirubin (Negative) Urine Urobilinogen (Negative) Ur Leukocyte Esterase (Negative) Urine WBC (Auto) (0-5) /hpf Urine RBC (Auto) (0-4) /hpf U Hyaline Cast (Auto) (0-5) /lpf U Epithel Cells (Auto) (0-5) /lpf Urine Bacteria (Auto) (Negative) PG Care Time/CCT Total # of Minutes Spent Total Time Spent with Patient: Total time spent is greater than 50% in coordination of care (as documented) at patient's floor/unit and/or counseling patient: Coding Level of Care Code 06715 Subseq Hosp Care Lvl 2 Diagnoses Fall W19.XXXA Encounter type: initial encounter Fracture of multiple pubic rami S32.592A Encounter type: initial encounter Fracture type: closed Laterality: left Dementia F03.90 Depression F32.9 Cerebrovascular disease I67.9 Urinary incontinence R32 Macular degeneration H35.30 Hypothyroidism E03.9 Hypothyroidism type: acquired GERD without esophagitis K21.9 DVT prophylaxis Z29.9 (1) Fracture of multiple pubic rami Encounter type: initial encounter Fracture type: closed Laterality: left Qualified Code(s): S32.592A - Other specified fracture of left pubis, initial encounter for closed fracture (2) Hypothyroidism Hypothyroidism type: acquired Qualified Code(s): E03.9 - Hypothyroidism, unspecified (3) Fall Encounter type: initial encounter Qualified Code(s): W19.XXXA - Unspecified fall, initial encounter
[2019-08-22] MEDS: ASPIRIN 81 MG ECTAB PO SCH (20:00)
--- NOTE | 2019-08-22 20:42 | Billing Data ---
Date of Service August 22, 2019 Coding Level of Care Code 77576 Initial Inpt Care Lvl 2
--- NOTE | 2019-08-22 22:58 | Billing Data ---
Date of Service August 22, 2019 Coding Level of Care Code 28900 Initial Inpt Care Lvl 2
[2019-08-23] MEDS: ESCITALOPRAM OXALATE 10 MG TAB PO SCH (08:14)
[2019-08-23] MEDS: CEROVITE ADV FORMULA TAB PO SCH (08:15)
[2019-08-23] MEDS: SENNA 8.6 MG TAB PO SCH ×2 (08:15→20:33)
[2019-08-23] MEDS: CALCIUM 600MG + VIT D 400 IU TAB PO SCH (08:16)
[2019-08-23] MEDS: CHOLECALCIFEROL 1,000 UNITS 25 MCG TAB PO SCH (08:16)
[2019-08-23] MEDS: MULTIVITAMIN TAB PO SCH (08:16)
[2019-08-23] MEDS: ENOXAPARIN INJ 40 MG/0.4 ML SYR SQ SCH (08:17)
--- NOTE | 2019-08-23 17:31 | Hospitalist Progress Note ---
Date of Service August 23, 2019 Assessment & Plan (1) Fall: Mechanical Non displaced pelvic fractures Pain control with tylenol, Oxycodone PRN Orthopedic surgery consulted - non surgical management, PT/OT and pain control, WBAT with rolling walker plan to d/c to home tomorrow with daughter (2) Fracture of multiple pubic rami: Noted on imaging. See #1 Appears to be completely mechanical Patient was already receiving physical therapy for lower limb strengthening per primary care provider Will likely need continued outpatient PT PT consulted here (3) Dementia: Worsening since March per daughter patient pleasantly confused during conversation, believes her daughter is in room next to her (4) Depression: Continue home escitalopram 10mg (5) Macular degeneration: Continue home meds (6) Osteoporosis: (7) Hypothyroidism: No longer on any medications (8) Constipation: (9) GERD without esophagitis: Continue PPI Admission and Anticipated Discharge Date Admission Date: August 21, 2019 Subjective patient doing okay, eating fairly well, still with pain in pelvis with standing she is using rolling walker discussed going home tomorrow with her daughter, she agrees reviewed chart since admission, appreciate orthopedic consult Review of Systems Review of Systems: All systems reviewed & are unremarkable except as noted in HPI & below Musculoskeletal: + joint pain (pelvis) Physical Exam Constitutional: well developed and + thin; no acute distress Eyes: PERRL, conjunctivae normal, anicteric sclerae ENMT: external ear and nose normal, oropharynx normal Neck: trachea midline, no thyromegaly Respiratory: normal respiratory effort, lungs clear to auscultation Cardiovascular: RRR, no murmur, no edema Gastrointestinal (Abdomen): normal bowel sounds, soft, nontender, no hepatosplenomegaly Musculoskeletal: no cyanosis or clubbing, extremities motor strength 5/5 Skin: no rashes, warm and dry Neurologic: patellar DTR's 2+ bilat, sensation intact and PERRL, EOMI, accommodation nl, no face palsy, no dysarthria Psychiatric: A+Ox3, euthymic affect Lymphatic: no cervical or axillary lymphadenopathy Results & Data Results & Data ([facility]) Vital Signs (Past 12 Hours) Vital Signs Temp Pulse Resp BP Pulse Ox Pulse Ox 08/23/19 15:16 37 C 79 16 118/72 94 08/23/19 09:50 95 08/23/19 07:30 36.9 C 71 16 115/67 95 Medications Administered Current Inpatient Medications Acetaminophen (Tylenol) 650 mg PO Q6H PRN PRN Reason: MILD Pain (Scale 1,2,3) Stop: 09/20/19 23:32 Last Admin: 08/22/19 18:30 Dose: 650 mg Documented by: Aspirin (Ecotrin Ectab) 81 mg PO HS [facility] Stop: 09/21/19 20:59 Last Admin: 08/22/19 20:00 Dose: 81 mg Documented by: Enoxaparin Sodium (Lovenox) 40 mg SQ Q24H [facility] Stop: 09/21/19 08:59 Last Admin: 08/23/19 08:17 Dose: 40 mg Documented by: Escitalopram Oxalate (Lexapro Tab) 10 mg PO DAILY [facility] Stop: 09/21/19 08:59 Last Admin: 08/23/19 08:14 Dose: 10 mg Documented by: Ketorolac Tromethamine (Toradol) 15 mg IV Q6H PRN PRN Reason: MODERATE Pain (Scale 4,5,6) Stop: 08/26/19 23:32 Meclizine HCl (Antivert) 25 mg PO TID PRN PRN Reason: dizziness Stop: 09/20/19 23:32 Multivitamins (Multivitamin Tab) 1 tab PO QAM [facility] Stop: 09/21/19 08:59 Last Admin: 08/23/19 08:16 Dose: 1 tab Documented by: Multivitamins/Minerals (Caltrate Plus) 1 tab PO DAILY [facility] Stop: 09/21/19 08:59 Last Admin: 08/23/19 08:16 Dose: 1 tab Documented by: Multivitamins/Minerals (Multivitamin W/ Minerals Tab) 1 tab PO DAILY [facility] Stop: 09/21/19 08:59 Last Admin: 08/23/19 08:15 Dose: 1 tab Documented by: Ondansetron HCl (Zofran) 4 mg IV Q6H PRN PRN Reason: Nausea Stop: 09/20/19 23:32 Oxycodone HCl (Roxicodone Immediate Rel) 5 mg PO Q4H PRN PRN Reason: SEVERE Pain (Scale 7,8,9,10) Stop: 09/04/19 23:32 Pantoprazole Sodium (Protonix) 40 mg PO DAILY PRN PRN Reason: reflux Sennosides (Senokot) 17.2 mg PO BID JEAN CARLOS Stop: 09/21/19 08:59 Last Admin: 08/23/19 08:15 Dose: 17.2 mg Documented by: Vitamin D (Vitamin D3) 2,000 units PO QAM JEAN CARLOS Stop: 09/21/19 08:59 Last Admin: 08/23/19 08:16 Dose: 2,000 units Documented by: PG Care Time/CCT Total # of Minutes Spent Total Time Spent with Patient: Total time spent is greater than 50% in coordination of care (as documented) at patient's floor/unit and/or counseling patient: Coding Level of Care Code 71586 Subseq Hosp Care Lvl 2 Diagnoses Fall W19.XXXA Encounter type: initial encounter Fracture of multiple pubic rami S32.592A Encounter type: initial encounter Fracture type: closed Laterality: left Dementia F03.90 Depression F32.9 Macular degeneration H35.30 Osteoporosis M81.0 Hypothyroidism E03.9 Hypothyroidism type: acquired Constipation K59.00 GERD without esophagitis K21.9 (1) Fracture of multiple pubic rami Encounter type: initial encounter Fracture type: closed Laterality: left Qualified Code(s): S32.592A - Other specified fracture of left pubis, initial encounter for closed fracture (2) Hypothyroidism Hypothyroidism type: acquired Qualified Code(s): E03.9 - Hypothyroidism, unspecified (3) Fall Encounter type: initial encounter Qualified Code(s): W19.XXXA - Unspecified fall, initial encounter
[2019-08-23] MEDS: ASPIRIN 81 MG ECTAB PO SCH (20:33)
[2019-08-24] MEDS: SENNA 8.6 MG TAB PO SCH (08:40)
[2019-08-24] MEDS: ESCITALOPRAM OXALATE 10 MG TAB PO SCH (08:40)
[2019-08-24] MEDS: CALCIUM 600MG + VIT D 400 IU TAB PO SCH (08:41)
[2019-08-24] MEDS: MULTIVITAMIN TAB PO SCH (08:41)
[2019-08-24] MEDS: CHOLECALCIFEROL 1,000 UNITS 25 MCG TAB PO SCH (08:41)
[2019-08-24] MEDS: CEROVITE ADV FORMULA TAB PO SCH (08:42)
[2019-08-24] MEDS: ENOXAPARIN INJ 40 MG/0.4 ML SYR SQ SCH (08:42)
--- NOTE | 2019-08-24 16:32 | Discharge Summary ---
Date of Service August 24, 2019 Admission HPI Per Admitting Provider Hattie Ovalle is an 88 year old woman with a past medical history significant for OA, depression, hypothyroidism, macular degenereation, hearing loss, urinary incontinence, GERD, chronic constipation, and progressive memory loss, who presents today after a mechanical fall at home. Staying with her family and had a misstep while stepping down off of a concrete walkway into the yard. She tells me she has fallen there several times. This time she had pain in her leg which caused her great difficulty walking. They decided to call the ambulance and bring her in for imaging. She denies hitting her head, any loss of cons ciousness, any lightheadedness prior to falling, any history of fainting or seizures. She has been in her usual state of health recently, denies chest pain, shortness of breath, no fatigue, no fevers or chills, no recent sick contacts, no recent travel, no abdominal pain, no nausea or vomiting, no urinary discomfort. She does not feel any pain at rest but feels about 7 or 8 out of ten pain while walking which she is still able to do. She otherwise has no concerns. On presentation to ED patient received tylenol and x rays of the hip knee and pelvis which showed no fractures, patient was set to be discharged home but still couldn't bear weight so CT pelvis was ordered shich showed nondisplaced fractures within the left inferior and superior pubic rami as well as the anterior column of the left acetabulum and a possible insufficiency fracture within the left sacrum. Decision was made to admit to hospital service. She wishes to be DNR, DNI. Principal Diagnosis Pelvic fracture due to mechanical fall Discharge Exam Constitutional well developed and + thin; no acute distress Eyes PERRL, conjunctivae normal, anicteric sclerae ENMT external ear and nose normal, oropharynx normal Neck trachea midline, no thyromegaly Respiratory normal respiratory effort, lungs clear to auscultation Cardiovascular RRR, no murmur, no edema Gastrointestinal (Abdomen) normal bowel sounds, soft, nontender, no hepatosplenomegaly Musculoskeletal no cyanosis or clubbing, extremities motor strength 5/5 Skin no rashes, warm and dry Neurologic patellar DTR's 2+ bilat, sensation intact and PERRL, EOMI, accommodation nl, no face palsy, no dysarthria Psychiatric A+Ox3, euthymic affect Lymphatic no cervical or axillary lymphadenopathy Discharge Data Allergies Allergy/AdvReac Type Severity Reaction Status Date / Time adhesive Allergy Mild RASH Verified 08/21/19 19:32 SULFA DRUGS Allergy Intermediate RASH/HIVES Uncoded 08/21/19 19:32 Consultations 08/21/19 20:47 ED Decision to Admit Stat 08/21/19 23:33 Consult Case Management - Discharge Planning Routine Consult Orthopedic Surgery Routine Ordered Studies 08/21/19 19:35 CT hip LT wo con Stat CT pelvis wo con Stat Hospital Course (1) Fall: Mechanical Non displaced pelvic fractures Pain control with tylenol, Oxycodone PRN Orthopedic surgery consulted - non surgical management, PT/OT and pain control, WBAT with rolling walker plan to d/c to home today with daughter (2) Fracture of multiple pubic rami: Noted on imaging. See #1 Appears to be completely mechanical Patient was already receiving physical therapy for lower limb strengthening per primary care provider Will need continued outpatient PT PT consulted here (3) Dementia: Worsening since March per daughter patient pleasantly confused during conversation, believes her daughter is in room next to her (4) Depression: Continue home escitalopram 10mg (5) Macular degeneration: Continue home meds (6) Osteoporosis: (7) Hypothyroidism: No longer on any medications (8) Constipation: (9) GERD without esophagitis: Continue PPI Total Time Total Time Spent Total Time Spent (In Minutes): 25 minutes Total Time Includes: Examination of the Patient, Discharge Planning and Medication Reconciliation Discharge Plan Discharge Items Patient Disposition: Home - Home Health Services Reason For Visit: FALL PELVIC FRACTURE Discharge Diagnosis: Pelvic fracture Dehydration Ambulatory dysfunction Condition on Discharge: Good Goals: improve strength and mobility use the walker AT ALL TIMES to help stability and off load pelvis it is okay to weight bear as tolerated on the pelvis stay well hydrated, force yourself to drink more water Activity: Per Instructions section Lifting: Gradually increase as tolerated Bathing: No limitations Exercise/Sports: Gradually increase as tolerated Weightbearing: Full weightbearing Weightbearing Comment: as tolerated, use walker to help offload as needed Non-emergency contact: Primary Care Provider Call non-emergency contact if: you have any medication questions, your symptoms worsen, your pain is not controlled and you have a fever Follow-up/Referrals: Kenya Conley, DO [Primary Care Provider] - 09/02/19 8:20 am (1-2 weeks) Diet: Regular Addtl Attending Provider Instructions: Medications: - TRAMADOL: take as needed for pain, use 50mg (1 tablet) every 6 hours as needed for pain, if pain not controlled can increase to 100mg (2 tablets) Pelvic fractures, sacral insufficiency fracture due to falls, evaluated by orthopedics, non-surgical management pain control and home physical therapy recommended you need to use rolling walker at all times when up and walking, standing etc you can weight bear as tolerated on both legs, use the walker to help offload some weight for pain, you can use Tylenol as first line, 650mg every 6 hours as needed if you still have pain, use the tramadol as prescribed Pending Studies at Discharge: No Stand-Alone Forms: [facility] [employer], Opioid Pain Management, Smoking Cessation Medications and DC Order Prescriptions: New tramadol 50 mg tablet 50 - 100 mg PO Q6H PRN (Reason: pain) Qty: 60 RF: 0 Continued cholecalciferol (vitamin D3) 2,000 unit tablet 2,000 units PO QAM RF: 0 multivitamin tablet,chewable 1 tab PO QAM RF: 0 meclizine 25 mg tablet 25 mg PO TID PRN (Reason: dizziness) 30 Days Qty: 90 RF: 0 calcium carb and citrate-vitD3 [Citracal-D3 Slow Release] 600 mg calcium- 500 unit tablet extended release 1 tab PO DAILY RF: 0 ICaps [id number] [id number]-unit tablet extended release 2 tab PO DAILY RF: 0 omeprazole 20 mg capsule,delayed release(DR/EC) 20 mg PO DAILY PRN (Reason: reflux) RF: 0 escitalopram oxalate 10 mg tablet 10 mg PO DAILY Qty: 90 RF: 1 aspirin 81 mg Tablet,Delayed Release (Dr/Ec) 81 mg PO HS RF: 0 Perdiem Overnight Relief 15 mg Tablet 15 mg PO BID RF: 0 No Action acetaminophen [Tylenol Extra Strength] 500 mg tablet 1,000 mg PO .COMPLEX PRNRF: 0 Discharge Orders: Discharge Order (Routine); Ordered 08/24/19 Ordered By: Pardeep Araujo/Other Patient Handouts: Osteoporosis Exercise, ED Fx Pelvis Admission Data Admit Date/Time: 05/23/20 22:18 Attending Provider: Pardeep Vivar Admit Provider: Quan Brennan Primary Care Provider: Kenya Conley Other Providers: Markell Jackson ; Delfino Hernandez Other Interventions: Discharge Summary Assessment (RN) Last Done: 08/24/19 12:03 DC Date/Time DO NOT enter until pt leaves facility: 08/24/19 13:58 Coding Level of Care Code D/C Day Management <30 mins Diagnoses Fall W19.XXXA Encounter type: initial encounter Fracture of multiple pubic rami S32.592A Encounter type: initial encounter Fracture type: closed Laterality: left Dementia F03.90 Depression F32.9 Macular degeneration H35.30 Osteoporosis M81.0 Hypothyroidism E03.9 Hypothyroidism type: acquired Constipation K59.00 GERD without esophagitis K21.9
== END 2019-08-24 13:58 | disposition home health service (06) | DRG 544 ==
LOC: ED 18:11 → 3E 22:18 → SUATTDRO 22:18 → 3E 23:35

== ENCOUNTER 2022-09-02 15:46 | Inpatient (IN) ==
[2022-09-02] MEDS ORDERED: SODIUM CHLORIDE 0.9% 500 ML IV SCH (16:00)
--- NOTE | 2022-09-02 16:02 | Emergency Department Note ---
Impression & Plan Ambulatory dysfunction ADMIT ED Provider Note HPI: The patient is an 89-year-old female with history of dementia, presents emergency department today after a fall at home. This is the second such fall the patient has had in about the past week. According to the patient's daughter at the bedside, patient was ambulating today with significant assistance, at one point the patient became distracted because someone was walking by and when she turned to look at them she fell over onto her left hip. Patient seemed to have some difficulty ambulating on the left hip after this fall and therefore she was brought to the ED to be assessed. On arrival the patient is hemodynamically stable, she is nonverbal at baseline, she does not appear to be in any acute distress on my initial assessment, motor and sensory function is intact distally in the bilateral lower extremities on my exam, patient does exhibit some limitation of flexion at the hip on the left side on my exam. ROS: - Per HPI *Outpatient medications and allergy history reviewed. *Pertinent external medical records reviewed. 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: (As interpreted by myself): - An order was placed for continuous cardiac monitoring - Patient was noted to be in sinus rhythm with rate of 80 EKG: (As interpreted by myself): Rate: 73 Rhythm: Probable sinus rhythm with baseline artifact Intervals: [place] interval indeterminate, QRS within normal limits, QTc within normal limit ST changes: No ST elevation Time: 1616 Interventions provided in ED: -IV fluid bolus Differential Diagnosis: Dementia with ambulatory dysfunction, urinary tract infection, sepsis, acute hip fracture, intracranial injury/subdural hematoma, skull fracture, amongst other potential pathologies. Medical Decision Making: On arrival here to the ED the patient overall appears to be in no acute distress, IV was established lab work obtained, patient was placed on radiographer cardiac catheterization. Lab work shows no leukocytosis, hemoglobin is stable at 12.0, platelet count is within normal limits, CMP does not show any critical findings, no acute electrolyte abnormalities. COVID-[address] imaging of the head was obtained that shows no evidence of any acute intracranial bleeding. Chest x-ray shows no evidence of any rib fractures or acute traumatic process. X-ray imaging of the hip shows no evidence of f racture. Urinalysis was ordered however patient did not tolerate catheterization, therefore this was canceled. Patient is currently on cefdinir for urinary tract infection, she has no fever, she has no leukocytosis, do not feel this needs to be investigated further at this time given the patient's inability to tolerate catheterization. I discussed the patient's presentation with her daughter at the bedside, at this time daughter is requesting admission for placement as family is having diffic ulty taking care of the patient at home with her significant ambulatory dysfunction, underlying dementia, and increased need for multiple caretakers at home to assist with ambulation and activities of daily living. I think this is reasonable. Case management was consulted, patient is unable to be placed and will require admission. Family at the bedside is in agreement to the above plan, patient will be placed for admission, case was discussed with the on-call hospitalist, Dr. Stover, and the patient was placed for admission in stable condition. Consultants: Hospitalist, Dr. Stover Disposition discussion held by myself with: Patient's daughter at the bedside Diagnosis: 1. Ambulatory dysfunction, chronic 2. Mechanical fall 3. Difficulty with activities of daily living secondary to severe dementia Disposition: Admission Ismael Ashton DO Emergency Medicine Past Med/Surg History Medical History (Updated 09/02/22 @ 19:24 by Ismael Ashton DO) Arthritis Asthma Cerebrovascular disease Constipation chronic Dementia Depression Dislocation of right shoulder joint GERD without esophagitis Grief Hypokalemia Hypothyroidism Macular degeneration Mass of right parotid gland Osteoporosis Urinary incontinence Surgical History S/P cataract extraction S/P cholecystectomy S/P dilatation and curettage S/P tonsillectomy S/P total hysterectomy and bilateral salpingo-oophorectomy S/P total knee arthroplasty b/l knees Family History Mother Ovarian cancer Colorectal cancer Father Myocardial infarction Denies family history of Prostate cancer Breast cancer Lung cancer Social History Smoking Status: Unknown if ever smoked Second Hand Exposure: No; Do You Dip or Chew Tobacco: No; Hx Alcohol Use: No Hx Substance Use: No Preferred Language: Cymraes Communication Ability: Effective Visual Impairment: Limited Hearing Ability: Hard of Hearing Blindstitch L[place] Feller Required: No Beliefs That Will Affect Care: None marital status: / Current Living Situation: Family Current Living Situation Comment: Living w/ daughter current occupational status: retired Feels Safe at Home: Yes Childhood Exposure to Second-Hand Smoke: No Diet: regular Diet Comment: regular caffeine: Yes during the past year weight has: remained stable Dental Care, Regularly: Yes Physical Activity Frequency: Does not Exercise Seatbelt Use: always Sunscreen Use: Yes Assistive Devices: Glasses and Walker Allergies Allergies Allergy/AdvReac Type Severity Reaction Status Date / Time adhesive Allergy Mild RASH Verified 09/02/22 18:30 SULFA DRUGS Allergy Intermediate RASH/HIVES Uncoded 09/02/22 18:30 Home Meds Home Medications Medication Instructions Recorded Confirmed cholecalciferol (vitamin D3) 50 2,000 units PO QAM 10/09/18 09/02/22 mcg (2,000 unit) tablet aspirin 81 mg tablet,delayed 81 mg PO HS 10/26/18 09/02/22 release calcium carb,cit ER 600 mg-vit D3 1 tab PO DAILY 11/11/18 09/02/22 12.5 mcg (500 unit) tablet,ext.rel (Citracal-D3 Slow Release) acetaminophen 500 mg tablet 500 mg PO Q12H 08/25/19 09/02/22 (Tylenol Extra Strength) multivitamin with minerals-folic 1 tab PO DAILY 09/02/22 09/02/22 acid 200 mcg chewable tablet (Multivitamin Gummies) Previous Rx's Medication Instructions Recorded escitalopram oxalate 10 mg tablet 10 mg PO DAILY #90 tabs 03/04/22 cefdinir 250 mg/5 mL oral 300 mg (6 mL) PO BID 7 days #84 mL 08/28/22 suspension Results & Data (ED) Vital Signs Vital Signs - 24 hr 09/02/22 15:51 09/02/22 15:51 09/02/22 16:02 Temperature 36.5 C Temperature Source Axillary Pulse Rate 77 Pulse Rate [Right Apical] 77 Pulse Rate from SpO2 Sensor Respiratory Rate 18 18 Respiratory Effort / Characteristics Non-Labored Spontaneous Non-Labored Spontaneous Respiratory Depth Normal Normal Respiratory Pattern Regular Regular Blood Pressure 118/64 Blood Pressure [Right Arm] 118/64 Blood Pressure Mean 82 Blood Pressure Mean [Right Arm] 82 Pulse Oximetry 98 98 98 Oxygen Delivery Method Room Air Room Air Room Air Sepsis Recent Fever Within 48 Hours No Sepsis New/Unexplained Change in Mental Status No Sepsis Action Taken by Nursing No Action Required 09/02/22 15:59 09/02/22 17:06 09/02/22 18:00 Temperature Temperature Source Pulse Rate 78 74 80 Pulse Rate [Right Apical] Pulse Rate from SpO2 Sensor 78 Respiratory Rate 23 15 Respiratory Effort / Characteristics Respiratory Depth Respiratory Pattern Blood Pressure 140/71 113/64 Blood Pressure [Right Arm] Blood Pressure Mean 94 80 Blood Pressure Mean [Right Arm] Pulse Oximetry 98 100 Oxygen Delivery Method Room Air Room Air Sepsis Recent Fever Within 48 Hours Sepsis New/Unexplained Change in Mental Status Sepsis Action Taken by Nursing Laboratory Data 09/02/22 16:07 09/02/22 16:07 Lab Results 09/02/22 09/02/22 09/02/22 Range/Units 16:07 16:07 16:07 WBC 8.93 (4.8-10.8) K/ul RBC 3.98 L (4.20-5.40) M/uL Hgb 12.0 (12.0-16.0) g/dl Hct 35.3 L (37.0-47.0) % MCV 88.7 (80.0-100.0) fL MCH 30.2 (25.0-34.0) pg MCHC 34.0 (32.0-36.0) g/dL RDW Std Deviation 41.2 (36.4-46.3) fL RDW Coeff of Dg 12.9 (11.5-14.5) % Plt Count 224 (130-400) K/uL MPV 11.0 (9.4-12.4) fL Immature Gran % (Auto) 0.7 % Neut % (Auto) 74.9 % Lymph % (Auto) 15.7 % [place] % (Auto) 6.5 % Eos % (Auto) 1.6 % Baso % (Auto) 0.6 % Neut # (Auto) 6.70 H (1.40-6.50) K/uL Lymph # (Auto) 1.40 (1.2-3.4) K/uL [place] # (Auto) 0.58 (0.11-0.59) K/uL Eos # (Auto) 0.14 (0-0.50) K/uL Baso # (Auto) 0.05 (0-0.2) K/uL Immature Gran # (Auto) 0.06 (0.01-0.20) K/uL Sodium 136 (136-145) mmol/L Potassium 3.5 (3.5-5.1) mmol/L Chloride 104 (98-107) mmol/L Carbon Dioxide 25 (21-32) mmol/L Anion Gap 7 (3-11) BUN 14 (6-23) mg/dl Creatinine 0.76 (0.6-1.2) mg/dl Est Cr Clr Drug Dosing Not Reportable Est GFR ( Amer) 80.6 ml/min Est GFR (Non-Af Amer) 69.5 ml/min BUN/Creatinine Ratio 18.4 (10-20) Glucose 100 H (70-99(Fasting)) mg/dl Calcium 9.4 (8.6-10.3) mg/dl Total Bilirubin 0.7 (0.2-1.0) mg/dl AST 30 (13-39) U/L ALT 25 (7-52) U/L Alkaline Phosphatase 53 (34-104) U/L Total Protein 7.1 (6.0-8.3) gm/dl Albumin 3.7 (3.4-5.0) gm/dl Globulin 3.4 (2.5-4.0) gm/dl Albumin/Globulin Ratio 1.1 (0.9-2) SARS-CoV-2, RNA, NAAT NEGATIVE (NEGATIVE) Administered Medications Discontinued Medications Sodium Chloride (Nss) 500 mls @ 999 mls/hr IV .Q31M JEAN CARLOS Stop: 09/02/22 16:30 Last Infusion: 09/02/22 16:40 Dose: 0 mls/hr Documented By: Admin: 09/02/22 16:08 Dose: 999 mls/hr Documented By: SHIVAM Imaging Data Radiologist's Impression: Chest X-Ray 09/02/22 16:00 SINGLE VIEW CHEST CLINICAL HISTORY: Fall. FINDINGS: An AP, portable, upright chest radiograph is compared to study dated 08/27/2022. The cardiomediastinal silhouette is unremarkable noting atherosclerotic calcification of the thoracic aorta. Chronic interstitial thickening is similar to previous. There is mild bibasilar scarring/atelectasis. The lungs and pleural spaces are otherwise clear. No pneumothorax is seen. The skeletal structures are osteopenic. The bony thorax is grossly intact. Advanced arthritic change and deformity is noted in the left shoulder. Cholecystectomy clips are seen in the right upper quadrant. IMPRESSION: No acute cardiopulmonary abnormality. ACT 112: Negative or not required by law. Electronically signed by: Marvin Ruano M.D. 09/02/2022 5:[address] 09/02/22 16:00 CT head/brain wo con CLINICAL HISTORY: 89 years-old Female with Trauma/fall. Acute trauma status post fall TECHNIQUE: Multiple axial CT images of the head were obtained without contrast. A dose lowering technique was utilized adhering to the principles of ALARA. CT DOSE: 547.75 mGy.cm COMPARISON: 08/27/2022 FINDINGS: No acute intracranial hemorrhage, midline shift, intracranial mass, hydrocephalus, territorial ischemia or abnormal extra-axial collection. Involutional changes with chronic microvascular ischemic disease. The calvarium is intact. Bilateral scleral banding. The paranasal sinuses, mastoid air cells, and middle ear cavities are clear. IMPRESSION: No acute intracranial abnormality or calvarial fracture. ACT 112: Negative or not required by law. The above report was generated using voice recognition software. It may contain grammatical, syntax or spelling errors. Electronically signed by: Jeremy Majano M.D. 09/02/2022 4:40 PM Hip/Pelvis X-Ray 09/02/22 16:00 SINGLE VIEW PELVIS; 2 VIEWS RIGHT HIP; 2 VIEWS LEFT HIP CLINICAL HISTORY: Fall. FINDINGS: AP views of the pelvis with AP and frog-leg views of the right and left hip are compared to study dated 08/27/2022. The skeletal structures are osteopenic. There is no radiographic evidence of acute fracture involving the hips or bony pelvis. There is chronic deformity of the left pubic ring. Mild arthritic change and joint space narrowing is seen in the hips. There is degenerative sclerosis of the sacroiliac joints and pubic symphysis. Lumbosacral spondylosis is partially imaged. There are numerous pelvic phleboliths. The overlying soft tissues are within normal limits. IMPRESSION: No acute bony abnormality is identified. Electronically signed by: Marvin Ruano M.D. 09/02/2022 5:13 PM Discharge Plan Visit Data Chief Complaint: Fall Stated Complaint: FALL, HIP PAIN ED Provider: Ismael Ashton Discharge Problem: Ambulatory dysfunction Forms Stand Alone Forms: [facility] Chlorogen Prescriptions Prescriptions: No Action cholecalciferol (vitamin D3) 2,000 unit tablet 2,000 units PO QAM escitalopram oxalate 10 mg tablet 10 mg PO DAILY Qty: 90 3RF calcium carb and citrate-vitD3 [Citracal-D3 Slow Release] 600 mg calcium- 500 unit tablet extended release 1 tab PO DAILY acetaminophen [Tylenol Extra Strength] 500 mg tablet 500 mg PO Q12H aspirin 81 mg Tablet,Delayed Release (Dr/Ec) 81 mg PO HS cefdinir 250 mg/5 mL suspension for reconstitution 300 mg PO BID 7 Days Qty: 84 0RF Rx Instructions: Start Date 08/29/2022 - End Date 09/04/2022 Multivitamin Gummies 200 mcg Tablet,Chewable 1 tab PO DAILY Referrals Referrals: Kenya Conley DO [Primary Care Provider] -
[2022-09-02 16:39] LABS: Basophils # (auto) 0.05 K/uL (0-0.2); Basophils % (auto) 0.6 %; Eosinophils # (auto) 0.14 K/uL (0-0.50); Eosinophils % (auto) 1.6 %; Hematocrit (blood only) 35.3 % (37.0-47.0); Immature Granulocytes # (auto) 0.06 K/uL (0.01-0.20); Immature Granulocytes % (auto) 0.7 %; Lymphocytes % (auto) 15.7 %; Mean Corpuscular Hemoglobin 30.2 pg (25.0-34.0); Mean Corpuscular Volume 88.7 fL (80.0-100.0); Monocytes # (auto) 0.58 K/uL (0.11-0.59); Monocytes % (auto) 6.5 %; Neutrophils % (auto) 74.9 %; Platelet Count 224 K/uL (130-400); RDW Coefficient of Variation 12.9 % (11.5-14.5); RDW Standard Deviation 41.2 fL (36.4-46.3); Red Blood Count 3.98 M/uL (4.20-5.40); White Blood Count 8.93 K/ul (4.8-10.8)
--- NOTE | 2022-09-02 16:42 | CT Scan Report ---
CT head/brain wo con CLINICAL HISTORY: 89 years-old Female with Trauma/fall. Acute trauma status post fall TECHNIQUE: Multiple axial CT images of the head were obtained without contrast. A dose lowering tech nique was utilized adhering to the principles of ALARA. CT DOSE: 547.75 mGy.cm COMPARISON: 08/27/2022 FINDINGS: No acute intracranial hemorrhage, midline shift, intracranial mass, hydrocephalus, territorial ischem ia or abnormal extra-axial collection. Involutional changes with chronic microvascular ischemic disea se. The calvarium is intact. Bilateral scleral banding. The paranasal sinuses, mastoid air cells, and mid dle ear cavities are clear. IMPRESSION: No acute intracranial abnormality or calvarial fracture. ACT 112: Negative or not required by law. The above report was generated using voice recognition software. It may contain grammatical, syntax o r spelling errors. Electronically signed by: Jeremy Majano M.D. 09/02/2022 4:40 PM
[2022-09-02 16:57] LABS: Alanine Aminotransferase 25 U/L (7-52); Albumin Globulin Ratio 1.1 (0.9-2); Albumin Level 3.7 gm/dl (3.4-5.0); Alkaline Phosphatase 53 U/L (34-104); Anion Gap 7 (3-11); Aspartate Aminotransferase 30 U/L (13-39); BUN Creatinine Ratio 18.4 (10-20); Bilirubin,Total 0.7 mg/dl (0.2-1.0); Blood Urea Nitrogen 14 mg/dl (6-23); Calcium 9.4 mg/dl (8.6-10.3); Carbon Dioxide 25 mmol/L (21-32); Chloride 104 mmol/L (98-107); Est GFR (African American) 80.6 ml/min; Est GFR (Non-African American) 69.5 ml/min; Globulin 3.4 gm/dl (2.5-4.0); Glucose 100 mg/dl (70-99(Fasting)); Potassium 3.5 mmol/L (3.5-5.1); Sodium 136 mmol/L (136-145); Total Protein 7.1 gm/dl (6.0-8.3)
--- NOTE | 2022-09-02 17:11 | XRay Report ---
SINGLE VIEW CHEST CLINICAL HISTORY: Fall. FINDINGS: An AP, portable, upright chest radiograph is compared to study dated 08/27/2022. The cardiom ediastinal silhouette is unremarkable noting atherosclerotic calcification of the thoracic aorta. Chr onic interstitial thickening is similar to previous. There is mild bibasilar scarring/atelectasis. Th e lungs and pleural spaces are otherwise clear. No pneumothorax is seen. The skeletal structures are osteopenic. The bony thorax is grossly intact. Advanced arthritic change and deformity is noted in th e left shoulder. Cholecystectomy clips are seen in the right upper quadrant. IMPRESSION: No acute cardiopulmonary abnormality. ACT 112: Negative or not required by law. Electronically signed by: Marvin Ruano M.D. 09/02/2022 5:09 PM
--- NOTE | 2022-09-02 17:15 | XRay Report ---
SINGLE VIEW PELVIS; 2 VIEWS RIGHT HIP; 2 VIEWS LEFT HIP CLINICAL HISTORY: Fall. FINDINGS: AP views of the pelvis with AP and frog-leg views of the right and left hip are compared to study dated 08/27/2022. The skeletal structures are osteopenic. There is no radiographic evidence of acute fracture involving the hips or bony pelvis. There is chronic deformity of the left pubic ring. Mild arthritic change and joint space narrowing is seen in the hips. There is degenerative sclerosis of the sacroiliac joints and pubic symphysis. Lumbosacral spondylosis is partially imaged. There are numerous pelvic phleboliths. The overlying soft tissues are within normal limits. IMPRESSION: No acute bony abnormality is identified. Electronically signed by: Marvin Ruano M.D. 09/02/2022 5:13 PM
--- NOTE | 2022-09-02 18:51 | History & Physical Report ---
Date of Service September 02, 2022 History of Present Illness Primary Care Provider: Kenya Conley DO Allergies Allergy/AdvReac Type Severity Reaction Status Date / Time adhesive Allergy Mild RASH Verified 09/02/22 18:30 SULFA DRUGS Allergy Intermediate RASH/HIVES Uncoded 09/02/22 18:30 Home Medications Medication Instructions Recorded Confirmed Type cholecalciferol (vitamin D3) 50 2,000 units PO QAM 10/09/18 09/02/22 History mcg (2,000 unit) tablet aspirin 81 mg tablet,delayed 81 mg PO HS 10/26/18 09/02/22 History release calcium carb,cit ER 600 mg-vit D3 1 tab PO DAILY 11/11/18 09/02/22 History 12.5 mcg (500 unit) tablet,ext.rel (Citracal-D3 Slow Release) acetaminophen 500 mg tablet 500 mg PO Q12H 08/25/19 09/02/22 History (Tylenol Extra Strength) escitalopram oxalate 10 mg tablet 10 mg PO DAILY #90 tabs 03/04/22 09/02/22 Rx cefdinir 250 mg/5 mL oral 300 mg (6 mL) PO BID 7 days #84 mL 08/28/22 09/02/22 Rx suspension multivitamin with minerals-folic 1 tab PO DAILY 09/02/22 09/02/22 History acid 200 mcg chewable tablet (Multivitamin Gummies) Past Med/Surg History Medical History (Updated 08/28/22 @ 20:22 by Jazmin Hewitt DO) Arthritis Asthma Cerebrovascular disease Constipation chronic Dementia Depression Dislocation of right shoulder joint GERD without esophagitis Grief Hypokalemia Hypothyroidism Macular degeneration Mass of right parotid gland Osteoporosis Urinary incontinence Surgical History S/P cataract extraction S/P cholecystectomy S/P dilatation and curettage S/P tonsillectomy S/P total hysterectomy and bilateral salpingo-oophorectomy S/P total knee arthroplasty b/l knees Family History Mother Ovarian cancer Colorectal cancer Father Myocardial infarction Denies family history of Prostate cancer Breast cancer Lung cancer Social History Smoking Status: Unknown if ever smoked Second Hand Exposure: No; Do You Dip or Chew Tobacco: No; Hx Alcohol Use: No Hx Substance Use: No Preferred Language: Cook Islander Communication Ability: Effective Visual Impairment: Limited Hearing Ability: Hard of Hearing [place] Farmer Required: No Beliefs That Will Affect Care: None marital status: / Current Living Situation: Family Current Living Situation Comment: Living w/ daughter current occupational status: retired Feels Safe at Home: Yes Childhood Exposure to Second-Hand Smoke: No Diet: regular Diet Comment: regular caffeine: Yes during the past year weight has: remained stable Dental Care, Regularly: Yes Physical Activity Frequency: Does not Exercise Seatbelt Use: always Sunscreen Use: Yes Assistive Devices: Glasses and Walker Results & Data Results & Data Vital Signs (Past 12 Hours) Vital Signs Temp Pulse Pulse Resp BP BP Pulse Ox 09/02/22 18:00 80 15 113/64 100 09/02/22 17:06 74 23 140/71 98 09/02/22 15:59 78 09/02/22 16:02 98 09/02/22 15:51 77 18 118/64 98 09/02/22 15:51 36.5 C 77 18 118/64 98 O2 Del Method 09/02/22 18:00 Room Air 09/02/22 17:06 Room Air 09/02/22 15:59 09/02/22 16:02 Room Air 09/02/22 15:51 Room Air 09/02/22 15:51 Room Air Laboratory Results Abnormal lab results 09/02/22 09/02/22 Range/Units 16:07 16:07 RBC 3.98 L (4.20-5.40) M/uL Hct 35.3 L (37.0-47.0) % Neut # (Auto) 6.70 H (1.40-6.50) K/uL Glucose 100 H (70-99(Fasting)) mg/dl Diagnostic Findings CT head/brain wo con CLINICAL HISTORY: 89 years-old Female with Trauma/fall. Acute trauma status post fall TECHNIQUE: Multiple axial CT images of the head were obtained without contrast. A dose lowering technique was utilized adhering to the principles of ALARA. CT DOSE: 547.75 mGy.cm COMPARISON: 08/27/2022 FINDINGS: No acute intracranial hemorrhage, midline shift, intracranial mass, hydrocephalus, territorial ischemia or abnormal extra-axial collection. Involutional changes with chronic microvascular ischemic disease. The calvarium is intact. Bilateral scleral banding. The paranasal sinuses, mastoid air cells, and middle ear cavities are clear. IMPRESSION: No acute intracranial abnormality or calvarial fracture. SINGLE VIEW CHEST CLINICAL HISTORY: Fall. FINDINGS: An AP, portable, upright chest radiograph is compared to study dated 08/27/2022. The cardiomediastinal silhouette is unremarkable noting atherosclerotic calcification of the thoracic aorta. Chronic interstitial thickening is similar to previous. There is mild bibasilar scarring/atelectasis. The lungs and pleural spaces are otherwise clear. No pneumothorax is seen. The skeletal structures are osteopenic. The bony thorax is grossly intact. Advanced arthritic change and deformity is noted in the left shoulder. Cholecystectomy c lips are seen in the right upper quadrant. IMPRESSION: No acute cardiopulmonary abnormality. SINGLE VIEW PELVIS; 2 VIEWS RIGHT HIP; 2 VIEWS LEFT HIP CLINICAL HISTORY: Fall. FINDINGS: AP views of the pelvis with AP and frog-leg views of the right and left hip are compared to study dated 08/27/2022. The skeletal structures are osteopenic. There is no radiographic evidence of acute fracture involving the hips or bony pelvis. There is chronic deformity of the left pubic ring. Mild arthritic change and joint space narrowing is seen in the hips. There is degenerative sclerosis of the sacroiliac joints and pubic symphysis. Lumbosacral spondylosis is partially imaged. There are numerous pelvic phleboliths. The overlying soft tissues are within normal limits. IMPRESSION: No acute bony abnormality is identified. Medications Administered ER Medications Given: NSS 500ml bolus ECG Rate (beats per minute): 73 Rhythm: other (accelerated junctional rhythm) Code Status & VTE Plan VTE Prophylaxis Plan VTE Prophylaxis will be ordered: Yes PG Care Time/CCT Total # of Minutes Spent Total Time Spent with Patient: Total time spent is greater than 50% in coordination of care (as documented) at patient's floor/unit and/or counseling patient: Coding Diagnoses
--- NOTE | 2022-09-02 19:53 | History & Physical Report ---
Date of Service September 02, 2022 Assessment & Plan (1) Failure to thrive in adult: Plan: Patient is an 89-year-old female with past medical history of multiple falls, depression, dementia, osteoporosis, hypothyroidism, and GERD who presented to the hospital for fall. Pt has been having a gradual decline in ambulatory function and po intake indicative of failure to thrive. Pt to be admitted for placement in a nursing facility. -Likely a consequence of advanced dementia -Admit to med surg for placement -PT/OT consulted, appreciate recs -Geography Teacher consulted, appreciate recs -Frequent reorientation and discussion with patient -Aspiration and fall precautions -OOB with assistance to chair only -May require 1:1 supervision if patient attempts to get out of bed. Bed alarm on. -Morning CBC, BMP, magnesium -Minced and moist diet with assistance -goals of care seem to be minimal treatment. Pt has a POLST and living will. Family will bring tomorrow (2) Fall: Plan: -Mechanical fall from standing -Imaging showing no acute fracture -Pt did seem to avoid weight bearing of LLE after fall -Possible occult fracture not visible on XRAY -No CT at this time as family would not want intervention even if there is a fracture -Continue to monitor (3) Ambulatory dysfunction: Plan: -Consequence of dementia as above -PT/OT consults -Placement to nursing facility, family wanting [facility] (4) Closed left humeral fracture: Plan: -Arm in sling, labs to be drawn from RUE (5) Acute UTI (urinary tract infection): Plan: -Diagnosed at last ED visit and started on cefdinir -2 day of cefdinir left, ordered (6) Dementia: Plan: -noted -frequent reorientation, fall and aspiration precautions (7) Depression: Plan: -continue lexapro (8) Osteoporosis: Plan: -continue calcium and vit. D supplementation -Fall precautions (9) Hypothyroidism: Plan: -No noted medications in EMR for treatment Plan Diet: Regular, Minced and moist DVT Prophylaxis: none given fall risk and goals of care Dispo: Admit to medsurg for placement, PT/OT recs Code Status: DNR/DNI History of Present Illness Chief Complaint: Fall Primary Care Provider: Kenya Conley DO Patient is an 89-year-old female with past medical history of multiple falls, depression, dementia, osteoporosis, hypothyroidism, and GERD who presented to the hospital for fall. Earlier today patient was being escorted by 2 family members when the patient turned her head and became distracted for a second resulting in what seemed to be a collapse of her lower extremities and falling on her left side. Unfortunately this is her second fall in a week with her last one being on 08/27/2022 for which she broke her left humerus. It seems that over the past few months has become progressively more difficult for her to ambulate as well as keep up with p.o. intake. After her fall today, it seems that the patient was trying to avoid bearing weight on her left leg. Daughter is present at the bedside who provides the entirety of the HPI. Daughter states that is much as a want to take care of her and try to prevent it is much as possible, the daughter feels that she needs to be placed in a home who is able to take care of her more adequately. In terms of medical history, no history of stroke, heart attack, or diabetes. Of note, at her last ED visit, her urinalysis was indicative of urinary tract infection and she has 2 more days of cefdinir to take for completed course. Otherwise patient is nonverbal and is unable to voice any other concerns at this time. ED course: Patient was brought back and evaluated by ED provider. Laboratory results did not have any significant pathologic findings and majority of values were within normal limits. Patient is COVID-negative. Chest x-ray, head CT, and hip/pelvis x-ray were all negative for acute pathologies. Patient was given a 500 mL bolus of normal saline. The hospital service was then consulted for admission for placement to nursing facility. Allergies Allergy/AdvReac Type Severity Reaction Status Date / Time adhesive Allergy Mild RASH Verified 09/02/22 18:30 SULFA DRUGS Allergy Intermediate RASH/HIVES Uncoded 09/02/22 18:30 Home Medications Medication Instructions Recorded Confirmed Type cholecalciferol (vitamin D3) 50 2,000 units PO QAM 10/09/18 09/02/22 History mcg (2,000 unit) tablet aspirin 81 mg tablet,delayed 81 mg PO HS 10/26/18 09/02/22 History release calcium carb,cit ER 600 mg-vit D3 1 tab PO DAILY 11/11/18 09/02/22 History 12.5 mcg (500 unit) tablet,ext.rel (Citracal-D3 Slow Release) acetaminophen 500 mg tablet 500 mg PO Q12H 08/25/19 09/02/22 History (Tylenol Extra Strength) escitalopram oxalate 10 mg tablet 10 mg PO DAILY #90 tabs 03/04/22 09/02/22 Rx cefdinir 250 mg/5 mL oral 300 mg (6 mL) PO BID 7 days #84 mL 08/28/22 09/02/22 Rx suspension multivitamin with minerals-folic 1 tab PO DAILY 09/02/22 09/02/22 History acid 200 mcg chewable tablet (Multivitamin Gummies) Past Med/Surg History Medical History (Updated 09/02/22 @ 20:16 by Chilango Pozo DO) Arthritis Asthma Cerebrovascular disease Constipation chronic Dementia Depression Dislocation of right shoulder joint GERD without esophagitis Grief Hypokalemia Hypothyroidism Macular degeneration Mass of right parotid gland Osteoporosis Urinary incontinence Surgical History S/P cataract extraction S/P cholecystectomy S/P dilatation and curettage S/P tonsillectomy S/P total hysterectomy and bilateral salpingo-oophorectomy S/P total knee arthroplasty b/l knees Family History Mother Ovarian cancer Colorectal cancer Father Myocardial infarction Denies family history of Prostate cancer Breast cancer Lung cancer Social History Smoking Status: Never smoker Second Hand Exposure: No; Do You Dip or Chew Tobacco: No; Hx Alcohol Use: No Hx Substance Use: No Preferred Language: Welsh Communication Ability: Unable Visual Impairment: Limited Hearing Ability: Hard of Hearing Program Director/Morning Show Host Required: No Beliefs That Will Affect Care: None marital status: / Current Living Situation: Family Current Living Situation Comment: Lives with daughter. current occupational status: retired Other Information That Helps Us Care for You: No Feels Safe at Home: Yes Safety Concerns: Feels Safe At This Time Childhood Exposure to Second-Hand Smoke: No Diet: regular Diet Comment: regular caffeine: Yes during the past year weight has: remained stable Dental Care, Regularly: Yes Physical Activity Frequency: Does not Exercise Seatbelt Use: always Sunscreen Use: Yes Assistive Devices: Hospital Bed and Walker Review of Systems Review of Systems: Unobtainable due to cognitive status Physical Exam Constitutional: + frail appearing and comfortable Eyes: + anicteric sclerae Neck: trachea midline, no thyromegaly Respiratory: normal respiratory effort, lungs clear to auscultation Cardiovascular: RRR, no murmur, no edema Gastrointestinal (Abdomen): normal bowel sounds, soft, nontender, no hepatosplenomegaly Musculoskeletal: Head/Neck/Chest: normocephalic and head atraumatic Pt does not follow commands, muscle strength testing was not able to be adequately performed. L arm is in a sling. Skin: no rashes, warm and dry Neurologic: awake Speech / Cognition: + abnormal speech Psychiatric: Orientation: alert Results & Data Results & Data Vital Signs (Past 12 Hours) Vital Signs Temp Pulse Pulse Resp BP BP Pulse Ox 09/02/22 18:00 80 15 113/64 100 09/02/22 17:06 74 23 140/71 98 09/02/22 15:59 78 09/02/22 16:02 98 09/02/22 15:51 77 18 118/64 98 09/02/22 15:51 36.5 C 77 18 118/64 98 O2 Del Method 09/02/22 18:00 Room Air 09/02/22 17:06 Room Air 09/02/22 15:59 09/02/22 16:02 Room Air 09/02/22 15:51 Room Air 09/02/22 15:51 Room Air Code Status & VTE Plan VTE Prophylaxis Plan VTE Prophylaxis will be ordered: Yes Supervising Physician Co-Signing Physician Notes I personally saw and examined the patient. I verified all sosa points and agree with resident Dr Chilango Pozo PASilvestre with the following exceptions and/or additions: 89 year old female with failure to thrive, ambulatory dysfunction and fall. Family unable to continue to care for her at home and feel she is . Offered CT of left hip and does not appear to be weight bearing on that side but declined by her daughter. Patient is non-verbal and unable to get any history from her. Daughter reports she distracted, turned and fell over. O/E Patient alert and in no distress. Non-verbal. Left arm in sling (injury from prior fall). Able to move both legs without grimacing. HS RRR, Chest CTAB, Abdo soft. A/P Failure to thrive / fall / ambulatory dysfunction - PT/OT, needs assistance with eating. Case management to discuss placement with family. (9) Hypothyroidism Hypothyroidism type: acquired Qualified Code(s): E03.9 - Hypothyroidism, unspecified
[2022-09-02] MEDS ORDERED: ASPIRIN 81 MG ECTAB PO SCH (21:30)
[2022-09-02] MEDS ORDERED: Patient's HEIGHT &/or WEIGHT Needed SCH (21:45)
[2022-09-02] MEDS: ASPIRIN 81 MG CHEW PO SCH (22:40)
[2022-09-02] MEDS: ACETAMINOPHEN 500 MG TAB PO SCH (22:40)
[2022-09-02] MEDS: CEFDINIR SUSP 250 MG/5 ML UDP PO SCH (22:40)
[2022-09-03 08:24] LABS: Hematocrit (blood only) 30.3 % (37.0-47.0); Hemoglobin 10.2 g/dl (12.0-16.0); Mean Corpuscular Hemoglobin 30.4 pg (25.0-34.0); Mean Corpuscular Hgb Conc 33.7 g/dL (32.0-36.0); Mean Corpuscular Volume 90.2 fL (80.0-100.0); Mean Platelet Volume 11.3 fL (9.4-12.4); Platelet Count 203 K/uL (130-400); RDW Coefficient of Variation 13.1 % (11.5-14.5); RDW Standard Deviation 42.6 fL (36.4-46.3); Red Blood Count 3.36 M/uL (4.20-5.40); White Blood Count 8.61 K/ul (4.8-10.8)
[2022-09-03 08:44] LABS: BUN Creatinine Ratio 21.2 (10-20); Calcium 8.9 mg/dl (8.6-10.3); Creatinine Clr Calc Pharmacy 48.6 ml/min; Est GFR (African American) 90.8 ml/min; Est GFR (Non-African American) 78.3 ml/min; Magnesium 1.9 mg/dl (1.7-2.4); Potassium 3.6 mmol/L (3.5-5.1)
[2022-09-03] MEDS: ACETAMINOPHEN 500 MG TAB PO SCH ×2 (09:30→20:30)
[2022-09-03] MEDS: CALCIUM 600MG + VIT D 400 IU TAB PO SCH (09:31)
[2022-09-03] MEDS: CEFDINIR SUSP 250 MG/5 ML UDP PO SCH (09:31)
[2022-09-03] MEDS: CHOLECALCIFEROL 1,000 UNITS 25 MCG TAB PO SCH (09:32)
[2022-09-03] MEDS: ESCITALOPRAM OXALATE 10 MG TAB PO SCH (09:33)
[2022-09-03] MEDS: CEROVITE ADV FORMULA TAB PO SCH (09:33)
[2022-09-03] MEDS: ACETAMINOPHEN 325 MG TAB PO PRN (15:48)
--- NOTE | 2022-09-03 19:45 | Hospitalist Progress Note ---
Date of Service September 03, 2022 Assessment & Plan (1) Failure to thrive in adult: Plan: 2nd to advanced dementia with recent falls leading to L humerus fracture needs SNF placement PT, OT check B12, B1, TSH, vitamin D levels to be complete (2) Fall: Plan: recurrent falls recent L humerus fracture - acute on chronic - proximal humerus (08/27/22) nonoperative Rx saw [facility] 08/30 in office - 6-8 weeks of sling immobilization advised check 25-OH Vit D level am (3) Ambulatory dysfunction: Plan: 2nd to advanced dementia check B12 level to be complete PT, OT as tolerated (4) Closed left humeral fracture: Plan: dx 08/27/22 see above pain meds prn (5) Acute UTI (urinary tract infection): Plan: 08/27/22 - e.coli finish course of cefdinir (6) Dementia: Plan: severe end-stage nonverbal needs SNF placement (7) Depression: Plan: continue lexapro (8) Osteoporosis: Plan: continue calcium and vit. D supplementation Fall precautions check 25-OH vit D level am (9) Hypothyroidism: Plan: not on supplementation at home check TSH in am Plan DVT proph - add heparin 5000 BID daughter updated at bedside dispo planning - SNF placement Admission and Anticipated Discharge Date Admission Date: September 02, 2022 Subjective patient sitting in chair comfortably nonverbal 100% daughter walked into the room while I was performing my evaluation daughter reports her mother has been nonverbal for 1-2 years has had dementia at least 4-5+ years she is concerned about her safety at home and the family simply cannot provide the level of care she needs to maintain safety - hence, the need for SNF placement per staff no issues eating fair Review of Systems Review of Systems: Unobtainable due to cognitive status (and nonverbal status ) Physical Exam Physical Exam: gen - thin, NAD, nonverbal, sitting in chair comfortably mouth - MM appear moist neck - no JVD musculo - left arm in sling; I am able to place both hips and both knees thru passive ROM without difficulty or perceived pain heart - RRR, s1 s2 lungs - CTA b/l abd - soft NT ND BS+ ext - no edema, pulses 2+ b/l psych - a/o x 0 Results & Data Results & Data Vital Signs (Past 12 Hours) Vital Signs Temp Pulse Resp BP Pulse Ox O2 Del Method 09/03/22 15:52 36.4 C L 93 H 16 108/68 97 Room Air 09/03/22 09:22 Room Air 09/03/22 07:47 37.0 C 86 16 105/63 95 Room Air Laboratory Results Laboratory Results - last 48 hr 09/02/22 09/02/22 09/02/22 16:07 16:07 16:07 WBC 8.93 RBC 3.98 L Hgb 12.0 Hct 35.3 L MCV 88.7 MCH 30.2 MCHC 34.0 RDW Std Deviation 41.2 RDW Coeff of Dg 12.9 Plt Count 224 MPV 11.0 Immature Gran % (Auto) 0.7 Neut % (Auto) 74.9 Lymph % (Auto) 15.7 [place] % (Auto) 6.5 Eos % (Auto) 1.6 Baso % (Auto) 0.6 Neut # (Auto) 6.70 H Lymph # (Auto) 1.40 [place] # (Auto) 0.58 Eos # (Auto) 0.14 Baso # (Auto) 0.05 Immature Gran # (Auto) 0.06 Sodium 136 Potassium 3.5 Chloride 104 Carbon Dioxide 25 Anion Gap 7 BUN 14 Creatinine 0.76 Est Cr Clr Drug Dosing Not Reportable Est GFR ( Amer) 80.6 Est GFR (Non-Af Amer) 69.5 BUN/Creatinine Ratio 18.4 Glucose 100 H Calcium 9.4 Magnesium Total Bilirubin 0.7 AST 30 ALT 25 Alkaline Phosphatase 53 Total Protein 7.1 Albumin 3.7 Globulin 3.4 Albumin/Globulin Ratio 1.1 Vitamin B12 25-OH Vitamin D Total TSH SARS-CoV-2, RNA, NAAT NEGATIVE 09/03/22 09/03/22 06:32 06:32 WBC 8.61 RBC 3.36 L Hgb 10.2 L Hct 30.3 L MCV 90.2 MCH 30.4 MCHC 33.7 RDW Std Deviation 42.6 RDW Coeff of Dg 13.1 Plt Count 203 MPV 11.3 Immature Gran % (Auto) Neut % (Auto) Lymph % (Auto) [place] % (Auto) Eos % (Auto) Baso % (Auto) Neut # (Auto) Lymph # (Auto) [place] # (Auto) Eos # (Auto) Baso # (Auto) Immature Gran # (Auto) Sodium 139 Potassium 3.6 Chloride 108 H Carbon Dioxide 22 Anion Gap 9 BUN 14 Creatinine 0.66 Est Cr Clr Drug Dosing 48.6 Est GFR ( Amer) 90.8 Est GFR (Non-Af Amer) 78.3 BUN/Creatinine Ratio 21.2 H Glucose 94 Calcium 8.9 Magnesium 1.9 Total Bilirubin AST ALT Alkaline Phosphatase Total Protein Albumin Globulin Albumin/Globulin Ratio Vitamin B12 25-OH Vitamin D Total TSH SARS-CoV-2, RNA, NAAT PG Care Time/CCT Total # of Minutes Spent Total Time Spent with Patient: Total time spent is greater than 50% in coordination of care (as documented) at patient's floor/unit and/or counseling patient: Coding Level of Care Code 06478 SUB INP/OBS CARE 2/35MIN Diagnoses Failure to thrive in adult R62.7 Fall W19.XXXA Ambulatory dysfunction R26.2 Closed left humeral fracture S42.302A Acute UTI (urinary tract infection) N39.0 Dementia F03.90 Depression F32.9 Osteoporosis M81.0 Hypothyroidism E03.9 Hypothyroidism type: acquired (9) Hypothyroidism Hypothyroidism type: acquired Qualified Code(s): E03.9 - Hypothyroidism, unspecified
[2022-09-03] MEDS: CEFDINIR SUSP 250 MG/5 ML PO SCH (20:30)
[2022-09-03] MEDS: ASPIRIN 81 MG CHEW PO SCH (20:32)
--- NOTE | 2022-09-04 06:03 | Electrocardiogram Report ---
Test Reason : Blood Pressure : / mmHG Vent. Rate : 073 BPM Atrial Rate : 000 BPM P-R Int : 000 ms QRS Dur : 066 ms QT Int : 416 ms P-R-T Axes : 000 000 026 degrees QTc Int : 458 ms Poor data quality, interpretation may be adversely affected Normal sinus rhythm Low voltage QRS Cannot rule out Anterior infarct , age undetermined Nonspecific T wave abnormality Abnormal ECG When compared with ECG of 27-AUG-2022 19:25, Minimal criteria for Anterior infarct are now Present Confirmed by Shaq Anderson ([id number]) on 09/04/2022 6:02:42 AM Referred By: Confirmed By:Shaq Anderson
[2022-09-04 09:05] LABS: Vitamin D, 25 Hydrox 52.3 ng/ml (30-100)
[2022-09-04] MEDS: ACETAMINOPHEN 500 MG TAB PO SCH ×2 (09:34→20:04)
[2022-09-04] MEDS: CHOLECALCIFEROL 1,000 UNITS 25 MCG TAB PO SCH (09:35)
[2022-09-04] MEDS: CALCIUM 600MG + VIT D 400 IU TAB PO SCH (09:35)
[2022-09-04] MEDS: CEROVITE ADV FORMULA TAB PO SCH (09:36)
[2022-09-04] MEDS: ESCITALOPRAM OXALATE 10 MG TAB PO SCH (09:36)
[2022-09-04] MEDS: CEFDINIR SUSP 250 MG/5 ML PO SCH (09:37)
--- NOTE | 2022-09-04 10:45 | Billing Data ---
Date of Service September 02, 2022 Coding Level of Care Code 12421 INT INP/OBS CARE
[2022-09-04] MEDS ORDERED: THIAMINE HCL 200 MG in SODIUM CHLORIDE 0.9% 50 ML IV STA (11:07)
[2022-09-04] MEDS: HEPARIN SOD 5,000 UNIT/0.5 ML VIAL SQ SCH ×2 (12:16→20:03)
[2022-09-04] MEDS: THIAMINE HCL 200 MG in SODIUM CHLORIDE 0.9% 50 ML IV SCH (20:00)
[2022-09-04] MEDS: ASPIRIN 81 MG CHEW PO SCH (20:04)
--- NOTE | 2022-09-04 21:49 | Hospitalist Progress Note ---
Date of Service September 04, 2022 Assessment & Plan (1) Failure to thrive in adult: Plan: 2nd to advanced dementia with recent falls leading to L humerus fracture needs SNF placement - [facility] preferred by family cont PT, OT checked B12, B1, TSH, vitamin D levels -- all wnl although waiting on B1 while B1 is pending start empiric thiamine 200mg IV BID (2) Fall: Plan: recurrent falls recent L humerus fracture - acute on chronic - proximal humerus (08/27/22) nonoperative Rx saw [facility] 08/30 in office - 6-8 weeks of sling immobilization advised 25-OH Vit D level wnl today (52) (3) Ambulatory dysfunction: Plan: 2nd to advanced dementia B12 level wnl PT, OT as tolerated (4) Closed left humeral fracture: Plan: dx 08/27/22 see above pain meds prn (5) Acute UTI (urinary tract infection): Plan: 08/27/22 - e.coli finish course of cefdinir today (6) Dementia: Plan: severe end-stage nonverbal needs SNF placement (7) Depression: Plan: continue lexapro (8) Osteoporosis: Plan: continue calcium and vit. D supplementation Fall precautions 25-OH vit D level 52 today (9) Hypothyroidism: Plan: not on supplementation at home TSH wnl Plan DVT proph - heparin 5000 BID son updated at bedside dispo planning - SNF placement Admission and Anticipated Discharge Date Admission Date: September 02, 2022 Subjective no events overnight per staff no acute issues nonverbal (baseline) thus cannot obtain any history or ROS family (son, daughter in law) at bedside Review of Systems Review of Systems: Unobtainable due to cognitive status Physical Exam Physical Exam: gen - thin, NAD, nonverbal, sitting in chair comfortably; occasionally smiles mouth - MMM neck - no JVD musculo - left arm in sling heart - RRR, s1 s2, no murmur lungs - CTA b/l abd - soft NT ND BS+ ext - no edema, pulses 2+ b/l psych - a/o x 0 skin - bruising - extensive - left shoulder and upper arm Results & Data Results & Data Vital Signs (Past 12 Hours) Vital Signs Temp Pulse Resp BP Pulse Ox O2 Del Method 09/04/22 15:35 36.3 C L 83 18 110/65 97 Room Air Laboratory Results Laboratory Results - last 48 hr 09/04/22 09/04/22 07:50 07:50 Vitamin B12 362 25-OH Vitamin D Total 52.3 TSH 1.940 PG Care Time/CCT Total # of Minutes Spent Total Time Spent with Patient: Total time spent is greater than 50% in coordination of care (as documented) at patient's floor/unit and/or counseling patient: Coding Level of Care Code 18197 SUB INP/OBS CARE 04/24MIN Diagnoses Failure to thrive in adult R62.7 Fall W19.XXXA Ambulatory dysfunction R26.2 Closed left humeral fracture S42.302A Acute UTI (urinary tract infection) N39.0 Dementia F03.90 Depression F32.9 Osteoporosis M81.0 Hypothyroidism E03.9 Hypothyroidism type: acquired (9) Hypothyroidism Hypothyroidism type: acquired Qualified Code(s): E03.9 - Hypothyroidism, unspecified
[2022-09-05] MEDS: ACETAMINOPHEN 500 MG TAB PO SCH ×2 (09:29→20:29)
[2022-09-05] MEDS: CALCIUM 600MG + VIT D 400 IU TAB PO SCH (09:30)
[2022-09-05] MEDS: CHOLECALCIFEROL 1,000 UNITS 25 MCG TAB PO SCH (09:30)
[2022-09-05] MEDS: ESCITALOPRAM OXALATE 10 MG TAB PO SCH (09:31)
[2022-09-05] MEDS: CEROVITE ADV FORMULA TAB PO SCH (09:31)
[2022-09-05] MEDS: HEPARIN SOD 5,000 UNIT/0.5 ML VIAL SQ SCH ×2 (09:32→20:30)
[2022-09-05] MEDS ORDERED: bisacodyL 10 MG SUPP PR STA (09:51)
[2022-09-05] MEDS: THIAMINE HCL 200 MG in SODIUM CHLORIDE 0.9% 50 ML IV SCH ×2 (11:24→20:35)
[2022-09-05] MEDS: POLYETHYLENE (MIRALAX) 17 GM PACK PO SCH (14:00)
[2022-09-05] MEDS: SENNA 8.6 MG TAB PO SCH (14:00)
[2022-09-05] MEDS: ACETAMINOPHEN 325 MG TAB PO PRN (15:09)
[2022-09-05] MEDS: ASPIRIN 81 MG CHEW PO SCH (20:29)
--- NOTE | 2022-09-05 20:59 | Hospitalist Progress Note ---
Date of Service September 05, 2022 Assessment & Plan (1) Failure to thrive in adult: Plan: 2nd to advanced dementia with recent falls leading to L humerus fracture needs SNF placement - [facility] preferred by family cont PT, OT checked B12, B1, TSH, vitamin D levels -- all wnl although waiting on B1 while B1 is pending started empiric thiamine 200mg IV BID can convert to PO in a day or two (2) Fall: Plan: recurrent falls recent L humerus fracture - acute on chronic - proximal humerus (08/27/22) nonoperative Rx saw [facility] 08/30/22 in office - 6-8 weeks of sling immobilization advised 25-OH Vit D level wnl @ 52 (3) Ambulatory dysfunction: Plan: 2nd to advanced dementia B12 level wnl PT, OT as tolerated B1 level pending as B1 def can cause neuropathy (4) Closed left humeral fracture: Plan: dx 08/27/22 see above pain meds prn (5) Acute UTI (urinary tract infection): Plan: 08/27/22 - e.coli finished course of cefdinir (6) Dementia: Plan: severe end-stage nonverbal needs SNF placement no agitation or superimposed delirium (7) Depression: Plan: continue lexapro (8) Osteoporosis: Plan: continue calcium and vit. D supplementation Fall precautions 25-OH vit D level 52 today (9) Hypothyroidism: Plan: not on supplementation at home TSH wnl (10) Constipation: Plan: add senna 2 tabs daily add miralax 1 serving daily dulcolax suppos PRN daily Plan DVT proph - heparin 5000 BID son updated at bedside yesterday dispo planning - SNF placement Admission and Anticipated Discharge Date Admission Date: September 02, 2022 Subjective no events overnight pt remains calm and cooperative with her care no agitation eating fair still no BM she is nonverbal thus no history/ROS can be obtained from her during the visit she was sitting in the chair comfortably Review of Systems Review of Systems: Unobtainable due to cognitive status (and nonverbal status ) Physical Exam Physical Exam: gen - thin, NAD, nonverbal, sitting in chair comfortably; occasionally smiles mouth - MMM neck - no JVD musculo - left arm in sling heart - RRR, s1 s2, no murmur lungs - CTA b/l ext - no edema, pulses 2+ b/l psych - a/o x 0; nonverbal Results & Data Results & Data Vital Signs (Past 12 Hours) Vital Signs Temp Pulse Resp BP Pulse Ox O2 Del Method 09/05/22 15:41 36.9 C 76 14 109/57 L 96 Room Air 09/05/22 09:38 Room Air PG Care Time/CCT Total # of Minutes Spent Total Time Spent with Patient: Total time spent is greater than 50% in coordination of care (as documented) at patient's floor/unit and/or counseling patient: Coding Level of Care Code 72839 SUB INP/OBS CARE 25MIN Diagnoses Failure to thrive in adult R62.7 Fall W19.XXXA Ambulatory dysfunction R26.2 Closed left humeral fracture S42.302A Acute UTI (urinary tract infection) N39.0 Dementia F03.90 Depression F32.9 Osteoporosis M81.0 Hypothyroidism E03.9 Hypothyroidism type: acquired Constipation K59.00 (9) Hypothyroidism Hypothyroidism type: acquired Qualified Code(s): E03.9 - Hypothyroidism, unspecified
[2022-09-06 08:26] LABS: BUN Creatinine Ratio 18.9 (10-20); Creatinine Clr Calc Pharmacy 43.4 ml/min; Est GFR (African American) 83.2 ml/min; Est GFR (Non-African American) 71.8 ml/min
[2022-09-06] MEDS: CEROVITE ADV FORMULA TAB PO SCH (09:42)
[2022-09-06] MEDS: ACETAMINOPHEN 500 MG TAB PO SCH ×2 (09:42→20:04)
[2022-09-06] MEDS: POLYETHYLENE (MIRALAX) 17 GM PACK PO SCH (09:42)
[2022-09-06] MEDS: CALCIUM 600MG + VIT D 400 IU TAB PO SCH (09:42)
[2022-09-06] MEDS: ESCITALOPRAM OXALATE 10 MG TAB PO SCH (09:42)
[2022-09-06] MEDS: HEPARIN SOD 5,000 UNIT/0.5 ML VIAL SQ SCH ×2 (09:42→20:05)
[2022-09-06] MEDS: CHOLECALCIFEROL 1,000 UNITS 25 MCG TAB PO SCH (09:42)
[2022-09-06] MEDS: SENNA 8.6 MG TAB PO SCH (09:42)
[2022-09-06] MEDS: THIAMINE HCL 200 MG in SODIUM CHLORIDE 0.9% 50 ML IV SCH ×2 (09:43→20:13)
--- NOTE | 2022-09-06 12:45 | Hospitalist Progress Note ---
Date of Service September 06, 2022 Assessment & Plan (1) Failure to thrive in adult: Plan: 2nd to advanced dementia with recent falls leading to L humerus fracture needs SNF placement - [facility] preferred by family cont PT, OT checked B12, B1, TSH, vitamin D levels -- all wnl although waiting on B1 while B1 is pending started empiric thiamine 200mg IV BID can convert to PO in a day or two (2) Fall: Plan: recurrent falls recent L humerus fracture - acute on chronic - proximal humerus (08/27/22) nonoperative Rx saw [facility] 08/30/22 in office - 6-8 weeks of sling immobilization advised 25-OH Vit D level wnl @ 52 (3) Ambulatory dysfunction: Plan: 2nd to advanced dementia + acute L iliac bone fracture increase tylenol to 1gm TID for pain relief B12 level wnl PT, OT as tolerated B1 level pending as B1 def can cause neuropathy (4) Closed left humeral fracture: Plan: dx 08/27/22 see above pain meds prn (5) Acute UTI (urinary tract infection): Plan: 08/27/22 - e.coli finished course of cefdinir (6) Dementia: Plan: severe end-stage nonverbal needs SNF placement no agitation or superimposed delirium (7) Depression: Plan: continue lexapro (8) Osteoporosis: Plan: continue calcium and vit. D supplementation Fall precautions 25-OH vit D level 52 (9) Hypothyroidism: Plan: not on supplementation at home TSH wnl (10) Constipation: Plan: senna 2 tabs daily miralax 1 serving daily dulcolax suppos PRN daily (11) Fracture of left iliac crest: Plan: 2nd to recent fall nonoperative Rx for such pain control --> increase tylenol to 1gm TID I checked R knee x of note - minimal retroperitoneal bleeding in the iliopsoas muscle H/H have been stable since admission repeat H/H in am Plan DVT proph - heparin 5000 BID daughter updated at bedside today dispo planning - SNF placement Admission and Anticipated Discharge Date Admission Date: September 02, 2022 Subjective no events overnight daughter at bedside daughter has been watching her mom walk and still notes she is not walking normally question of whether she is reluctant to walk on right leg? (previously it was thought that she was avoiding walking on the left leg) no BM yet eating fair Review of Systems Review of Systems: Unobtainable due to cognitive status Physical Exam Physical Exam: gen - thin, NAD, nonverbal, sitting in chair comfortably; occasionally smiles mouth - MMM neck - no JVD musculo - left arm in sling heart - RRR, s1 s2, no murmur lungs - CTA b/l ext - no edema, pulses 2+ b/l psych - a/o x 0; nonverbal skin - extensive ecchymoses L arm and L shoulder musculo - ankles placed through full passive ROM - no pain; b/l knees - passive ROM wnl; b/l hips - passive ROM wnl I placed significant pressure on the pelvis b/l and could not ilicit obvious signs of pain Results & Data Results & Data Vital Signs (Past 12 Hours) Vital Signs Temp Pulse Resp BP Pulse Ox O2 Del Method 09/06/22 06:55 36.8 C 71 16 124/70 96 Room Air Laboratory Results Laboratory Results - last 24 hr 09/06/22 07:01 Sodium 138 Potassium 4.0 Chloride 107 Carbon Dioxide 25 Anion Gap 6 BUN 14 Creatinine 0.74 Est Cr Clr Drug Dosing 43.4 Est GFR ( Amer) 83.2 Est GFR (Non-Af Amer) 71.8 BUN/Creatinine Ratio 18.9 Glucose 94 Calcium 9.[address] 09/06/22 12:44 CT pelvis wo con HISTORY: 89 years-old Female recent fall, refusing to WB on RLE; r/o pelvic Fxs acute pelvic pain status post fall COMPARISON: 09/02/2022 TECHNIQUE: Multiple axial CT images of the bony pelvis were obtained without the use of IV contrast. A dose lowering technique was used consistent with the principals of ALARA. FINDINGS: Healed chronic left inferior pubic ramus fracture. Demineralized appearance of the bones. Moderate osteoarthritis of the hips. Bilateral proximal femora appear intact. There is an acute mildly comminuted fracture involving the left iliac bone which involves the lateral superior third extending anteriorly and 170 series 2. Minimal placement measures up to approximately 2 mm. No additional acute fracture or dislocation identified. No acute or intrapelvic abnormality identified. Small fat filled umbilical hernia. Small lateral left pelvic contusion adjacent to the aforementioned fracture. Colonic diverticulosis with moderate fecal retention. Normal appendix. Subtle asymmetry and stranding within the left iliacus and iliopsoas muscles. IMPRESSION: 1. Acute and mildly comminuted fracture of the left iliac bone demonstrates no significant displacement. 2. Trace acute retroperitoneal hemorrhage within the left iliacus and iliopsoas muscles. ACT 112: Negative or not required by law. The above report was generated using voice recognition software. It may contain grammatical, syntax or spelling errors. Electronically signed by: Jeremy Majano M.D. 09/06/2022 3:23 PM Knee X-Ray 09/06/22 12:45 XR knee RT 1 or 2V routine HISTORY: 89 years-old Female previous TKR; fall; pain COMPARISON: None TECHNIQUE: 2 views of the right knee FINDINGS: Partially imaged left knee arthroplasty. Right knee arthroplasty with patellar resurfacing. Trace right knee joint effusion. No acute fracture, dislocation or evidence of hardware complication. Arterial calcifications. IMPRESSION: 1. Trace joint effusion without acute fracture or dislocation. 2. Unremarkable appearance of the total joint arthroplasty. ACT 112: Negative or not required by law. The above report was generated using voice recognition software. It may contain grammatical, syntax or spelling errors. Electronically signed by: Jeremy Majano M.D. 09/06/2022 1:29 PM PG Care Time/CCT Total # of Minutes Spent Total Time Spent with Patient: Total time spent is greater than 50% in coordination of care (as documented) at patient's floor/unit and/or counseling patient: Coding Level of Care Code 87136 SUB INP/OBS CARE 2/35MIN Diagnoses Failure to thrive in adult R62.7 Fall W19.XXXA Ambulatory dysfunction R26.2 Closed left humeral fracture S42.302A Acute UTI (urinary tract infection) N39.0 Dementia F03.90 Depression F32.9 Osteoporosis M81.0 Hypothyroidism E03.9 Hypothyroidism type: acquired Constipation K59.00 Fracture of left iliac crest S32.302A (9) Hypothyroidism Hypothyroidism type: acquired Qualified Code(s): E03.9 - Hypothyroidism, unspecified
--- NOTE | 2022-09-06 13:30 | XRay Report ---
XR knee RT 1 or 2V routine HISTORY: 89 years-old Female previous TKR; fall; pain COMPARISON: None TECHNIQUE: 2 views of the right knee FINDINGS: Partially imaged left knee arthroplasty. Right knee arthroplasty with patellar resurfacing. Trace rig ht knee joint effusion. No acute fracture, dislocation or evidence of hardware complication. Arterial calcifications. IMPRESSION: 1. Trace joint effusion without acute fracture or dislocation. 2. Unremarkable appearance of the total joint arthroplasty. ACT 112: Negative or not required by law. The above report was generated using voice recognition software. It may contain grammatical, syntax o r spelling errors. Electronically signed by: Jeremy Majano M.D. 09/06/2022 1:29 PM
--- NOTE | 2022-09-06 15:24 | CT Scan Report ---
CT pelvis wo con HISTORY: 89 years-old Female recent fall, refusing to WB on RLE; r/o pelvic Fxs acute pelvic pain st atus post fall COMPARISON: 09/02/2022 TECHNIQUE: Multiple axial CT images of the bony pelvis were obtained without the use of IV contrast. A dose lowering technique was used consistent with the principals of ALISE. FINDINGS: Healed chronic left inferior pubic ramus fracture. Demineralized appearance of the bones. Moderate os teoarthritis of the hips. Bilateral proximal femora appear intact. There is an acute mildly comminute d fracture involving the left iliac bone which involves the lateral superior third extending anterior ly and 170 series 2. Minimal placement measures up to approximately 2 mm. No additional acute fractur e or dislocation identified. No acute or intrapelvic abnormality identified. Small fat filled umbilical hernia. Small lateral left pelvic contusion adjacent to the aforementioned fracture. Colonic diverticulosis with moderate fecal retention. Normal appendix. Subtle asymmetry and stranding within the left iliacus and iliopsoas mus cles. IMPRESSION: 1. Acute and mildly comminuted fracture of the left iliac bone demonstrates no significant displaceme nt. 2. Trace acute retroperitoneal hemorrhage within the left iliacus and iliopsoas muscles. ACT 112: Negative or not required by law. The above report was generated using voice recognition software. It may contain grammatical, syntax o r spelling errors. Electronically signed by: Jeremy Majano M.D. 09/06/2022 3:23 PM
[2022-09-06] MEDS: ASPIRIN 81 MG CHEW PO SCH (20:05)
[2022-09-07] MEDS ORDERED: bisacodyL 10 MG SUPP PR ONE (08:09)
[2022-09-07 08:54] LABS: Hematocrit (blood only) 32.5 % (37.0-47.0); Mean Corpuscular Hemoglobin 30.4 pg (25.0-34.0); Mean Corpuscular Hgb Conc 33.8 g/dL (32.0-36.0); Mean Corpuscular Volume 89.8 fL (80.0-100.0); Mean Platelet Volume 10.6 fL (9.4-12.4); Platelet Count 228 K/uL (130-400); RDW Coefficient of Variation 13.1 % (11.5-14.5); RDW Standard Deviation 42.8 fL (36.4-46.3); Red Blood Count 3.62 M/uL (4.20-5.40); White Blood Count 10.53 K/ul (4.8-10.8)
[2022-09-07] MEDS: ESCITALOPRAM OXALATE 10 MG TAB PO SCH (09:02)
[2022-09-07] MEDS: SENNA 8.6 MG TAB PO SCH (09:02)
[2022-09-07] MEDS: CALCIUM 600MG + VIT D 400 IU TAB PO SCH (09:02)
[2022-09-07] MEDS: CEROVITE ADV FORMULA TAB PO SCH (09:02)
[2022-09-07] MEDS: CHOLECALCIFEROL 1,000 UNITS 25 MCG TAB PO SCH (09:03)
[2022-09-07] MEDS: POLYETHYLENE (MIRALAX) 17 GM PACK PO SCH (09:04)
[2022-09-07] MEDS: THIAMINE HCL 100 MG TAB PO SCH ×2 (09:06→21:12)
[2022-09-07] MEDS: ACETAMINOPHEN 500 MG TAB PO SCH ×3 (09:07→21:10)
[2022-09-07] MEDS: HEPARIN SOD 5,000 UNIT/0.5 ML VIAL SQ SCH ×2 (09:14→21:11)
[2022-09-07] MEDS ORDERED: MINERAL OIL ENEMA 133 ML BTL PR ONE (16:00)
--- NOTE | 2022-09-07 20:14 | Hospitalist Progress Note ---
Date of Service September 07, 2022 Assessment & Plan (1) Failure to thrive in adult: Plan: 2nd to advanced dementia with recent falls leading to L humerus fracture needs SNF placement - [facility] preferred by family awaiting bed there cont PT, OT checked B12, B1, TSH, vitamin D levels -- all wnl although waiting on B1 while B1 is pending started empiric thiamine 200mg IV BID can convert to PO form today (2) Fall: Plan: recurrent falls recent L humerus fracture - acute on chronic - proximal humerus (08/27/22) nonoperative Rx saw [facility] 08/30/22 in office - 6-8 weeks of sling immobilization advised 25-OH Vit D level wnl @ 52 speaking with pt's grandson today it sounds as if she had syncope leading to her 2nd fall CT head this admission neg for acute findings (3) Ambulatory dysfunction: Plan: 2nd to advanced dementia + acute L iliac bone fracture cont tylenol 1gm TID for pain relief B12 level wnl PT, OT as tolerated B1 level pending as B1 def can cause neuropathy (4) Closed left humeral fracture: Plan: dx 08/27/22 see above pain meds prn (5) Acute UTI (urinary tract infection): Plan: 08/27/22 - e.coli finished course of cefdinir (6) Dementia: Plan: severe end-stage nonverbal needs SNF placement no agitation or superimposed delirium (7) Depression: Plan: continue lexapro (8) Osteoporosis: Plan: continue calcium and vit. D supplementation Fall precautions 25-OH vit D level 52 (9) Hypothyroidism: Plan: not on supplementation at home TSH wnl (10) Constipation: Plan: s/p dulcolax suppos today with mild results s/p mineral oil enema x 1 today with moderate results cont senna 2 tabs daily + miralax 1 serving daily for bowel maintenance dulcolax suppos PRN daily (11) Fracture of left iliac crest: Plan: 2nd to recent fall nonoperative Rx for such pain control --> tylenol 1gm TID of note - minimal retroperitoneal bleeding in the iliopsoas muscle region on CT - H/h remain stable case reviewed with on-call orthopedics - films reviewed - WBAT, nonoperative Rx Plan DVT proph - heparin 5000 BID left message for daughter on her voicemail this evening grandson updated at bedside today dispo planning - SNF placement Admission and Anticipated Discharge Date Admission Date: September 02, 2022 Subjective pt resting during the visit grandson at bedside he reports he had witnessed 1 of her falls sounds like she was standing, crossed her legs, then fell and had what sounds like syncope ? per nursing had small, very hard, BM with suppository; manual disimpaction also performed Review of Systems Review of Systems: Unobtainable due to cognitive status Physical Exam Physical Exam: gen - thin, NAD, sleeping in bed neck - no JVD musculo - left arm in sling heart - RRR, s1 s2, no murmur lungs - CTA b/l abd - soft NT ND BS+ ext - no edema, pulses 2+ b/l skin - extensive ecchymoses L arm and L shoulder Results & Data Results & Data Vital Signs (Past 12 Hours) Vital Signs Temp Pulse Resp BP Pulse Ox O2 Del Method 09/07/22 15:12 37.0 C 85 16 109/64 94 Room Air Laboratory Results Laboratory Results - last 24 hr 09/07/22 08:37 WBC 10.53 RBC 3.62 L Hgb 11.0 L Hct 32.5 L MCV 89.8 MCH 30.4 MCHC 33.8 RDW Std Deviation 42.8 RDW Coeff of Dg 13.1 Plt Count 228 MPV 10.6 PG Care Time/CCT Total # of Minutes Spent Total Time Spent with Patient: Total time spent is greater than 50% in coordination of care (as documented) at patient's floor/unit and/or counseling patient: Coding Level of Care Code 19172 SUB INP/OBS CARE 2/35MIN Diagnoses Failure to thrive in adult R62.7 Fall W19.XXXA Ambulatory dysfunction R26.2 Closed left humeral fracture S42.302A Acute UTI (urinary tract infection) N39.0 Dementia F03.90 Depression F32.9 Osteoporosis M81.0 Hypothyroidism E03.9 Hypothyroidism type: acquired Constipation K59.00 Fracture of left iliac crest S32.302A (9) Hypothyroidism Hypothyroidism type: acquired Qualified Code(s): E03.9 - Hypothyroidism, unspecified
[2022-09-07] MEDS: ASPIRIN 81 MG CHEW PO SCH (21:11)
[2022-09-08] MEDS: ESCITALOPRAM OXALATE 10 MG TAB PO SCH (08:22)
[2022-09-08] MEDS: THIAMINE HCL 100 MG TAB PO SCH ×2 (08:23→21:40)
[2022-09-08] MEDS: CALCIUM 600MG + VIT D 400 IU TAB PO SCH (08:23)
[2022-09-08] MEDS: SENNA 8.6 MG TAB PO SCH (08:23)
[2022-09-08] MEDS: CHOLECALCIFEROL 1,000 UNITS 25 MCG TAB PO SCH (08:23)
[2022-09-08] MEDS: POLYETHYLENE (MIRALAX) 17 GM PACK PO SCH ×2 (08:24→21:41)
[2022-09-08] MEDS: CEROVITE ADV FORMULA TAB PO SCH (08:24)
[2022-09-08] MEDS: HEPARIN SOD 5,000 UNIT/0.5 ML VIAL SQ SCH ×2 (08:31→21:41)
[2022-09-08] MEDS: ACETAMINOPHEN 500 MG TAB PO SCH ×3 (09:04→21:40)
--- NOTE | 2022-09-08 20:04 | Hospitalist Progress Note ---
Date of Service September 08, 2022 Assessment & Plan (1) Failure to thrive in adult: Plan: 2nd to advanced dementia with recent falls leading to L humerus fracture needs SNF placement - [facility] preferred by family awaiting bed there - likely no bed until later in the week by report cont PT, OT checked B12, B1, TSH, vitamin D levels -- all wnl although waiting on B1 while B1 is pending started empiric thiamine 200mg BID (2) Fall: Plan: recurrent falls recent L humerus fracture - acute on chronic - proximal humerus (08/27/22) nonoperative Rx saw [facility] 08/30/22 in office - 6-8 weeks of sling immobilization advised 25-OH Vit D level wnl @ 52 speaking with pt's grandson yesterday - sounds as if she had syncope leading to her 2nd fall CT head this admission neg for acute findings (3) Ambulatory dysfunction: Plan: 2nd to advanced dementia + acute L iliac bone fracture cont tylenol 1gm TID for pain relief B12 level wnl PT, OT as tolerated B1 level pending as B1 def can cause neuropathy (4) Closed left humeral fracture: Plan: dx 08/27/22 see above pain meds prn (5) Acute UTI (urinary tract infection): Plan: 08/27/22 - e.coli finished course of cefdinir (6) Dementia: Plan: severe end-stage nonverbal needs SNF placement no agitation or superimposed delirium (7) Depression: Plan: continue lexapro (8) Osteoporosis: Plan: continue calcium and vit. D supplementation Fall precautions 25-OH vit D level 52 (9) Hypothyroidism: Plan: not on supplementation at home TSH wnl (10) Constipation: Plan: IMPROVED s/p dulcolax suppos + enema yesterday with decent results then multiple BMs overnight cont senna 2 tabs daily + miralax 1 serving BID for bowel maintenance dulcolax suppos PRN daily (11) Fracture of left iliac crest: Plan: 2nd to recent fall nonoperative Rx for such pain control --> tylenol 1gm TID of note - minimal retroperitoneal bleeding in the iliopsoas muscle region on CT - H/h remain stable repeat a cbc in am case reviewed with on-call orthopedics over the weekend - films reviewed - WBAT, nonoperative Rx f/u with ortho 2 weeks post-discharge for recheck ([facility]) Plan DVT proph - heparin 5000 BID updated pt's daughter at bedside today dispo planning - SNF placement Admission and Anticipated Discharge Date Admission Date: September 02, 2022 Subjective no events overnight resting in bed during the visit daughter at bedside ate 75% of lunch had several BMs overnight disimpacted yesterday by staff Review of Systems Review of Systems: Unobtainable due to cognitive status (and nonverbal status ) Physical Exam Physical Exam: gen - thin, NAD, sleeping in bed then woke up and smiled 1x neck - no JVD musculo - left arm in sling heart - RRR, s1 s2, no murmur lungs - CTA b/l abd - soft NT ND BS+ ext - no edema, pulses 2+ b/l neuropsych - no changes; nonverbal Results & Data Results & Data Vital Signs (Past 12 Hours) Vital Signs Temp Pulse Resp BP Pulse Ox O2 Del Method 09/08/22 18:31 74 106/63 09/08/22 15:41 37.3 C 82 16 99/60 L 95 Room Air PG Care Time/CCT Total # of Minutes Spent Total Time Spent with Patient: Total time spent is greater than 50% in coordination of care (as documented) at patient's floor/unit and/or counseling patient: Coding Level of Care Code 66544 SUB INP/OBS CARE 1/25MIN Diagnoses Failure to thrive in adult R62.7 Fall W19.XXXA Ambulatory dysfunction R26.2 Closed left humeral fracture S42.302A Acute UTI (urinary tract infection) N39.0 Dementia F03.90 Depression F32.9 Osteoporosis M81.0 Hypothyroidism E03.9 Hypothyroidism type: acquired Constipation K59.00 Fracture of left iliac crest S32.302A (9) Hypothyroidism Hypothyroidism type: acquired Qualified Code(s): E03.9 - Hypothyroidism, unspecified
[2022-09-08] MEDS: ASPIRIN 81 MG CHEW PO SCH (21:39)
[2022-09-09] MEDS: SENNA 8.6 MG TAB PO SCH (07:40)
[2022-09-09] MEDS: ACETAMINOPHEN 500 MG TAB PO SCH ×3 (07:41→20:25)
[2022-09-09] MEDS: CHOLECALCIFEROL 1,000 UNITS 25 MCG TAB PO SCH (07:41)
[2022-09-09] MEDS: HEPARIN SOD 5,000 UNIT/0.5 ML VIAL SQ SCH ×2 (07:41→20:27)
[2022-09-09] MEDS: THIAMINE HCL 100 MG TAB PO SCH ×2 (07:41→20:25)
[2022-09-09] MEDS: CEROVITE ADV FORMULA TAB PO SCH (07:42)
[2022-09-09] MEDS: POLYETHYLENE (MIRALAX) 17 GM PACK PO SCH ×2 (07:42→20:22)
[2022-09-09] MEDS: ESCITALOPRAM OXALATE 10 MG TAB PO SCH (07:42)
[2022-09-09] MEDS: CALCIUM 600MG + VIT D 400 IU TAB PO SCH (07:42)
[2022-09-09 07:55] LABS: Hematocrit (blood only) 30.9 % (37.0-47.0); Hemoglobin 10.5 g/dl (12.0-16.0); Mean Corpuscular Hemoglobin 30.1 pg (25.0-34.0); Mean Corpuscular Volume 88.5 fL (80.0-100.0); Mean Platelet Volume 10.9 fL (9.4-12.4); Platelet Count 260 K/uL (130-400); RDW Coefficient of Variation 13.4 % (11.5-14.5); RDW Standard Deviation 43.1 fL (36.4-46.3); Red Blood Count 3.49 M/uL (4.20-5.40); White Blood Count 10.63 K/ul (4.8-10.8)
[2022-09-09 08:04] LABS: BUN Creatinine Ratio 29.9 (10-20); Calcium 8.7 mg/dl (8.6-10.3); Creatinine Clr Calc Pharmacy 41.7 ml/min; Est GFR (African American) 79.3 ml/min; Est GFR (Non-African American) 68.5 ml/min; Potassium 3.9 mmol/L (3.5-5.1)
--- NOTE | 2022-09-09 11:13 | XRay Report ---
XR knee LT 1 or 2V routine CLINICAL HISTORY: recent fall, difficulty weight-bearing, past TKR TECHNIQUE: 2 views of the left knee were obtained. Comparison: Comparison is made to knee radiographs 08/21/2019 FINDINGS: There is no evidence of an acute fracture. Patient is status post total knee arthroplasty. No perihar dware lucency or hardware fracture is seen. No joint effusion is seen. No soft tissue abnormality is seen. IMPRESSION: No evidence of acute osseous injury. ACT 112: Negative or not required by law. Electronically signed by: Pardeep Crockett M.D. 09/09/2022 11:10 AM
--- NOTE | 2022-09-09 19:52 | Hospitalist Progress Note ---
Date of Service September 09, 2022 Assessment & Plan (1) Failure to thrive in adult: Plan: 2nd to advanced dementia with recent falls leading to L humerus fracture needs SNF placement - [facility] preferred by family - awaiting bed cont PT, OT checked B12, B1, TSH, vitamin D levels -- all wnl while B1 level is technically normal it is low-normal thus complete a course of thiamine 200mg BID for 3-4 weeks (2) Fall: Plan: recurrent falls recent L humerus fracture - acute on chronic - proximal humerus (08/27/22) nonoperative Rx saw [facility] 08/30/22 in office - 6-8 weeks of sling immobilization advised 25-OH Vit D level wnl @ 52 by report it sounds as if she had syncope leading to her 2nd fall CT head this admission neg for acute findings (3) Ambulatory dysfunction: Plan: 2nd to advanced dementia + acute L iliac bone fracture cont tylenol 1gm TID for pain relief B12 level wnl PT, OT as tolerated replace low-normal B1 level with thiamine as low B1 can contribute to neuropathy (4) Closed left humeral fracture: Plan: dx 08/27/22 see above pain meds prn sling to left arm x 6 weeks any issues - consult [facility] (5) Acute UTI (urinary tract infection): Plan: 08/27/22 - e.coli finished course of cefdinir (6) Dementia: Plan: severe end-stage nonverbal needs SNF placement no agitation or superimposed delirium (7) Depression: Plan: continue lexapro (8) Osteoporosis: Plan: continue calcium and vit. D supplementation Fall precautions 25-OH vit D level 52 (9) Hypothyroidism: Plan: not on supplementation at home TSH wnl (10) Constipation: Plan: IMPROVED s/p dulcolax suppos + enema over the weekend cont senna 2 tabs daily + miralax 1 serving BID for bowel maintenance dulcolax suppos PRN daily (11) Fracture of left iliac crest: Plan: 2nd to recent fall nonoperative Rx for such pain control --> tylenol 1gm TID of note - minimal retroperitoneal bleeding in the iliopsoas muscle region on CT - H/H again stable today case reviewed with on-call orthopedics over the weekend - films reviewed recommendations -- WBA nonoperative Rx f/u with ortho 2 weeks post-discharge for recheck ([facility]) Plan DVT proph - heparin 5000 BID updated pt's daughter at bedside yesterday dispo planning - SNF placement Admission and Anticipated Discharge Date Admission Date: September 02, 2022 Subjective no issues overnight during the visit she was resting in bed comfortably a few times she smiled otherwise nonverbal Review of Systems Review of Systems: Unobtainable due to cognitive status (nonverbal ) Physical Exam Physical Exam: gen - thin, NAD, awake, looking around the room, smiling at times neck - no JVD musculo - left arm in sling heart - RRR, s1 s2, no murmur lungs - CTA b/l abd - soft NT ND BS+ ext - no edema, pulses 2+ b/l neuropsych - nonverbal skin - resolving ecchymoses L shoulder and L arm Results & Data Results & Data Vital Signs (Past 12 Hours) Vital Signs Temp Pulse Resp BP Pulse Ox O2 Del Method 09/09/22 15:38 36.9 C 84 16 110/64 93 Room Air Laboratory Results Laboratory Results - last 48 hr 09/04/22 09/09/22 09/09/22 07:50 07:16 07:16 WBC 10.63 RBC 3.49 L Hgb 10.5 L Hct 30.9 L MCV 88.5 MCH 30.1 MCHC 34.0 RDW Std Deviation 43.1 RDW Coeff of Dg 13.4 Plt Count 260 MPV 10.9 Sodium 137 Potassium 3.9 Chloride 107 Carbon Dioxide 22 Anion Gap 8 BUN 23 Creatinine 0.77 Est Cr Clr Drug Dosing 41.7 Est GFR ( Amer) 79.3 Est GFR (Non-Af Amer) 68.5 BUN/Creatinine Ratio 29.9 H Glucose 93 Calcium 8.7 Vitamin B1 10 PG Care Time/CCT Total # of Minutes Spent Total Time Spent with Patient: Total time spent is greater than 50% in coordination of care (as documented) at patient's floor/unit and/or counseling patient: Coding Level of Care Code 85463 SUB INP/OBS CARE 125MIN Diagnoses Failure to thrive in adult R62.7 Fall W19.XXXA Ambulatory dysfunction R26.2 Closed left humeral fracture S42.302A Acute UTI (urinary tract infection) N39.0 Dementia F03.90 Depression F32.9 Osteoporosis M81.0 Hypothyroidism E03.9 Hypothyroidism type: acquired Constipation K59.00 Fracture of left iliac crest S32.302A (9) Hypothyroidism Hypothyroidism type: acquired Qualified Code(s): E03.9 - Hypothyroidism, unspecified
[2022-09-09] MEDS: ASPIRIN 81 MG CHEW PO SCH (20:24)
[2022-09-10] MEDS: THIAMINE HCL 100 MG TAB PO SCH ×2 (08:02→21:00)
[2022-09-10] MEDS: CHOLECALCIFEROL 1,000 UNITS 25 MCG TAB PO SCH (08:02)
[2022-09-10] MEDS: CEROVITE ADV FORMULA TAB PO SCH (08:03)
[2022-09-10] MEDS: CALCIUM 600MG + VIT D 400 IU TAB PO SCH (08:03)
[2022-09-10] MEDS: POLYETHYLENE (MIRALAX) 17 GM PACK PO SCH ×2 (08:03→20:59)
[2022-09-10] MEDS: SENNA 8.6 MG TAB PO SCH (08:03)
[2022-09-10] MEDS: ESCITALOPRAM OXALATE 10 MG TAB PO SCH (08:03)
[2022-09-10] MEDS: ACETAMINOPHEN 500 MG TAB PO SCH ×3 (08:04→20:59)
[2022-09-10] MEDS: HEPARIN SOD 5,000 UNIT/0.5 ML VIAL SQ SCH ×2 (08:04→21:00)
--- NOTE | 2022-09-10 14:57 | Hospitalist Progress Note ---
Date of Service September 10, 2022 Assessment & Plan (1) Failure to thrive in adult: Plan: 2nd to advanced dementia with recent falls leading to L humerus fracture needs SNF placement - [facility] preferred by family - awaiting bed cont PT, OT checked B12, B1, TSH, vitamin D levels -- all wnl while B1 level is technically normal it is low-normal thus complete a course of thiamine 200mg BID for 3-4 weeks (2) Fall: Plan: recurrent falls recent L humerus fracture - acute on chronic - proximal humerus (08/27/22) nonoperative Rx saw [facility] 08/30/22 in office - 6-8 weeks of sling immobilization advised 25-OH Vit D level wnl @ 52 by report it sounds as if she had syncope leading to her 2nd fall CT head this admission neg for acute findings (3) Ambulatory dysfunction: Plan: 2nd to advanced dementia + acute L iliac bone fracture cont tylenol 1gm TID for pain relief B12 level wnl PT, OT as tolerated replace low-normal B1 level with thiamine as low B1 can contribute to neuropathy (4) Closed left humeral fracture: Plan: dx 08/27/22 see above pain meds prn sling to left arm x 6 weeks any issues - consult [facility] (5) Acute UTI (urinary tract infection): Plan: 08/27/22 - e.coli finished course of cefdinir (6) Dementia: Plan: severe end-stage nonverbal needs SNF placement no agitation or superimposed delirium (7) Depression: Plan: continue lexapro (8) Osteoporosis: Plan: continue calcium and vit. D supplementation Fall precautions 25-OH vit D level 52 (9) Hypothyroidism: Plan: not on supplementation at home TSH wnl (10) Constipation: Plan: IMPROVED s/p dulcolax suppos + enema over the weekend cont senna 2 tabs daily + miralax 1 serving BID for bowel maintenance dulcolax suppos PRN daily (11) Fracture of left iliac crest: Plan: 2nd to recent fall nonoperative Rx for such pain control --> tylenol 1gm TID of note - minimal retroperitoneal bleeding in the iliopsoas muscle region on CT - H/H again stable today case reviewed with on-call orthopedics over the weekend - films reviewed recommendations -- WBA nonoperative Rx f/u with ortho 2 weeks post-discharge for recheck ([facility]) Plan DVT proph - heparin 5000 BID dispo planning - SNF placement Admission and Anticipated Discharge Date Admission Date: September 02, 2022 Subjective patient seen and examined, did not respond to my questions, although awake and alert Review of Systems Review of Systems: unable to obtain due to dementia Physical Exam Physical Exam: The patient is awake, alert , did not answer any questions HEENT--PERRL, EOMI, mucous membranes and oropharynx mildly dry Neck--supple. No JVD. No bruits. Thyroid normal, trachea midline, no adenopathy. Heart--normal S1 and S2. No murmurs, rubs or gallops. Lungs--clear bilaterally, no respiratory distress, no accessory muscle use. Abdomen--normal bowel sounds and soft. Mild epigastric and left sided abdominal pain Extremities-left UE in sling Dermatologic--normal skin turgor, normal color, no abnormal lymph nodes, no rash. Neurologic--cranial nerves II through XII grossly intact. Rheumatologic--normal range of motion. Psychiatric--unable to assess Results & Data Results & Data Vital Signs (Past 12 Hours) Vital Signs Temp Pulse Resp BP Pulse Ox O2 Del Method 09/10/22 07:21 97.5 F L 76 16 120/70 95 Room Air PG Care Time/CCT Total # of Minutes Spent Total Time Spent with Patient: Total time spent is greater than 50% in coordination of care (as documented) at patient's floor/unit and/or counseling patient: Coding Level of Care Code 60840 SUB INP/OBS CARE 2/35MIN Diagnoses Failure to thrive in adult R62.7 Fall W19.XXXA Ambulatory dysfunction R26.2 Closed left humeral fracture S42.302A Acute UTI (urinary tract infection) N39.0 Dementia F03.90 Depression F32.9 Osteoporosis M81.0 Hypothyroidism E03.9 Hypothyroidism type: acquired Constipation K59.00 Fracture of left iliac crest S32.302A Time Spent (min) 35 (9) Hypothyroidism Hypothyroidism type: acquired Qualified Code(s): E03.9 - Hypothyroidism, unspecified
[2022-09-10] MEDS: ASPIRIN 81 MG CHEW PO SCH (20:59)
[2022-09-11] MEDS: THIAMINE HCL 100 MG TAB PO SCH ×2 (09:07→20:28)
[2022-09-11] MEDS: HEPARIN SOD 5,000 UNIT/0.5 ML VIAL SQ SCH ×2 (09:07→20:29)
[2022-09-11] MEDS: POLYETHYLENE (MIRALAX) 17 GM PACK PO SCH ×2 (09:07→20:28)
[2022-09-11] MEDS: ESCITALOPRAM OXALATE 10 MG TAB PO SCH (09:08)
[2022-09-11] MEDS: CHOLECALCIFEROL 1,000 UNITS 25 MCG TAB PO SCH (09:08)
[2022-09-11] MEDS: SENNA 8.6 MG TAB PO SCH (09:08)
[2022-09-11] MEDS: CEROVITE ADV FORMULA TAB PO SCH (09:08)
[2022-09-11] MEDS: CALCIUM 600MG + VIT D 400 IU TAB PO SCH (09:08)
[2022-09-11] MEDS: ACETAMINOPHEN 500 MG TAB PO SCH ×3 (09:09→20:28)
--- NOTE | 2022-09-11 13:08 | Hospitalist Progress Note ---
Date of Service September 11, 2022 Assessment & Plan (1) Failure to thrive in adult: Plan: Secondary to advanced dementia with recent falls leading to L humerus fracture needs SNF placement - [facility] preferred by family - awaiting bed cont PT, OT checked B12, B1, TSH, vitamin D levels -- all wnl while B1 level is technically normal it is low-normal thus complete a course of thiamine 200mg BID for 3-4 weeks (2) Fall: Plan: recurrent falls recent L humerus fracture - acute on chronic - proximal humerus (08/27/22) nonoperative Rx saw [facility] 08/30/22 in office - 6-8 weeks of sling immobilization advised 25-OH Vit D level wnl @ 52 CT head this admission neg for acute findings (3) Ambulatory dysfunction: Plan: 2nd to advanced dementia + acute L iliac bone fracture cont tylenol 1gm TID for pain relief B12 level wnl PT, OT as tolerated replace low-normal B1 level with thiamine as low B1 can contribute to neuropathy (4) Closed left humeral fracture: Plan: dx 08/27/22 see above pain meds prn sling to left arm x 6 weeks any issues - consult [facility] (5) Acute UTI (urinary tract infection): Plan: 08/27/22 - e.coli finished course of cefdinir (6) Dementia: Plan: severe end-stage nonverbal needs SNF placement no agitation or superimposed delirium (7) Depression: Plan: continue lexapro (8) Osteoporosis: Plan: continue calcium and vit. D supplementation Fall precautions 25-OH vit D level 52 (9) Hypothyroidism: Plan: not on supplementation at home TSH wnl (10) Constipation: Plan: IMPROVED s/p dulcolax suppos + enema over the weekend cont senna 2 tabs daily + miralax 1 serving BID for bowel maintenance dulcolax suppos PRN daily (11) Fracture of left iliac crest: Plan: 2nd to recent fall nonoperative Rx for such pain control --> tylenol 1gm TID of note - minimal retroperitoneal bleeding in the iliopsoas muscle region on CT - H/H again stable today case reviewed with on-call orthopedics over the weekend - films reviewed recommendations -- WBA nonoperative Rx f/u with ortho 2 weeks post-discharge for recheck ([facility]) Plan DVT proph - heparin 5000 BID dispo planning - SNF placement Admission and Anticipated Discharge Date Admission Date: September 02, 2022 Subjective patient seen and examined, did not respond to my questions, although awake and alert, essentially non verbal Review of Systems Review of Systems: unable to obtain due to dementia Physical Exam Physical Exam: The patient is awake, alert , did not answer any questions HEENT--PERRL, EOMI, mucous membranes and oropharynx mildly dry Neck--supple. No JVD. No bruits. Thyroid normal, trachea midline, no adenopathy. Heart--normal S1 and S2. No murmurs, rubs or gallops. Lungs--clear bilaterally, no respiratory distress, no accessory muscle use. Abdomen--normal bowel sounds and soft. Mild epigastric and left sided abdominal pain Extremities-left UE in sling Dermatologic--normal skin turgor, normal color, no abnormal lymph nodes, no rash. Neurologic--cranial nerves II through XII grossly intact. Rheumatologic--normal range of motion. Psychiatric--unable to assess Results & Data Results & Data Vital Signs (Past 12 Hours) Vital Signs Temp Pulse Resp BP Pulse Ox O2 Del Method 09/11/22 07:29 98.1 F 70 16 125/64 97 Room Air PG Care Time/CCT Total # of Minutes Spent Total Time Spent with Patient: Total time spent is greater than 50% in coordination of care (as documented) at patient's floor/unit and/or counseling patient: Coding Level of Care Code 20727 SUB INP/OBS CARE 2/35MIN Diagnoses Failure to thrive in adult R62.7 Fall W19.XXXA Ambulatory dysfunction R26.2 Closed left humeral fracture S42.302A Acute UTI (urinary tract infection) N39.0 Dementia F03.90 Depression F32.9 Osteoporosis M81.0 Hypothyroidism E03.9 Hypothyroidism type: acquired Constipation K59.00 Fracture of left iliac crest S32.302A Time Spent (min) 35 (9) Hypothyroidism Hypothyroidism type: acquired Qualified Code(s): E03.9 - Hypothyroidism, unspecified
[2022-09-11] MEDS: ASPIRIN 81 MG CHEW PO SCH (20:28)
[2022-09-11 21:49] VITALS: PULSE 76
[2022-09-12 07:59] VITALS: TEMP 97; O2SAT 93
[2022-09-12] MEDS: ACETAMINOPHEN 500 MG TAB PO SCH ×2 (08:30→12:52)
[2022-09-12] MEDS: THIAMINE HCL 100 MG TAB PO SCH (08:30)
[2022-09-12] MEDS: CEROVITE ADV FORMULA TAB PO SCH (08:30)
[2022-09-12] MEDS: HEPARIN SOD 5,000 UNIT/0.5 ML VIAL SQ SCH (08:31)
[2022-09-12] MEDS: SENNA 8.6 MG TAB PO SCH (08:31)
[2022-09-12] MEDS: ESCITALOPRAM OXALATE 10 MG TAB PO SCH (08:31)
[2022-09-12] MEDS: POLYETHYLENE (MIRALAX) 17 GM PACK PO SCH (08:31)
[2022-09-12] MEDS: CALCIUM 600MG + VIT D 400 IU TAB PO SCH (08:31)
[2022-09-12] MEDS: CHOLECALCIFEROL 1,000 UNITS 25 MCG TAB PO SCH (08:31)
--- NOTE | 2022-09-12 10:57 | Discharge Summary ---
Date of Service September 12, 2022 Admission HPI Per Admitting Provider Patient is an 89-year-old female with past medical history of multiple falls, depression, dementia, osteoporosis, hypothyroidism, and GERD who presented to the hospital for fall. Earlier today patient was being escorted by 2 family members when the patient turned her head and became distracted for a second resulting in what seemed to be a collapse of her lower extremities and falling on her left side. Unfortunately this is her second fall in a week with her last one being on 08/27/2022 for which she broke her left humerus. It seems that over the past few months has become progressively more difficult for her to ambulate as well as keep up with p.o. intake. After her fall today, it seems that the patient was trying to avoid bearing weight on her left leg. Daughter is present at the bedside who provides the entirety of the HPI. Daughter states that is much as a want to take care of her and try to prevent it is much as possible, the daughter feels that she needs to be placed in a home who is able to take care of her more adequately. In terms of medical history, no history of stroke, heart attack, or diabetes. Of note, at her last ED visit, her urinalysis was indicative of urinary tract infection and she has 2 more days of cefdinir to take for completed course. Otherwise patient is nonverbal and is unable to voice any other concerns at this time. ED course: Patient was brought back and evaluated by ED provider. Laboratory results did not have any significant pathologic findings and majority of values were within normal limits. Patient is COVID-negative. Chest x-ray, head CT, and hip/pelvis x-ray were all negative for acute pathologies. Patient was given a 500 mL bolus of normal saline. The hospital service was then consulted for admission for placement to nursing facility. Principal Diagnosis left humeral fracture, FTT Discharge Exam The patient is awake, alert , did not answer any questions HEENT--PERRL, EOMI, mucous membranes and oropharynx mildly dry Neck--supple. No JVD. No bruits. Thyroid normal, trachea midline, no adenopathy. Heart--normal S1 and S2. No murmurs, rubs or gallops. Lungs--clear bilaterally, no respiratory distress, no accessory muscle use. Abdomen--normal bowel sounds and soft. Mild epigastric and left sided abdominal pain Extremities-left UE in sling Dermatologic--normal skin turgor, normal color, no abnormal lymph nodes, no rash. Neurologic--cranial nerves II through XII grossly intact. Rheumatologic--normal range of motion. Psychiatric--unable to assess Discharge Data Allergies Allergy/AdvReac Type Severity Reaction Status Date / Time adhesive Allergy Mild RASH Verified 09/02/22 18:30 SULFA DRUGS Allergy Intermediate RASH/HIVES Uncoded 09/02/22 18:30 Consultations 09/02/22 18:25 ED Decision to Admit Stat Ordered Studies 09/02/22 16:00 CT head/brain wo con Stat 09/06/22 12:44 CT pelvis wo con Routine Hospital Course (1) Failure to thrive in adult: Secondary to advanced dementia with recent falls leading to L humerus fracture needs SNF placement - [facility] preferred by family - awaiting bed cont PT, OT checked B12, B1, TSH, vitamin D levels -- all wnl while B1 level is technically normal it is low-normal thus complete a course of thiamine 200mg BID for 3-4 weeks (2) Fall: recurrent falls recent L humerus fracture - acute on chronic - proximal humerus (08/27/22) nonoperative Rx saw [facility] 08/30/22 in office - 6-8 weeks of sling immobilization advised 25-OH Vit D level wnl @ 52 CT head this admission neg for acute findings (3) Ambulatory dysfunction: 2nd to advanced dementia + acute L iliac bone fracture cont tylenol 1gm TID for pain relief B12 level wnl PT, OT as tolerated replace low-normal B1 level with thiamine as low B1 can contribute to neuropathy (4) Closed left humeral fracture: dx 08/27/22 see above pain meds prn sling to left arm x 6 weeks any issues - consult [facility] (5) Acute UTI (urinary tract infection): 08/27/22 - e.coli finished course of cefdinir (6) Dementia: severe end-stage nonverbal needs SNF placement no agitation or superimposed delirium (7) Depression: continue lexapro (8) Osteoporosis: continue calcium and vit. D supplementation Fall precautions 25-OH vit D level 52 (9) Hypothyroidism: not on supplementation at home TSH wnl (10) Constipation: IMPROVED s/p dulcolax suppos + enema over the weekend cont senna 2 tabs daily + miralax 1 serving BID for bowel maintenance dulcolax suppos PRN daily (11) Fracture of left iliac crest: 2nd to recent fall nonoperative Rx for such pain control --> tylenol 1gm TID of note - minimal retroperitoneal bleeding in the iliopsoas muscle region on CT - H/H again stable today case reviewed with on-call orthopedics over the weekend - films reviewed recommendations -- WBA nonoperative Rx f/u with ortho 2 weeks post-discharge for recheck ([facility]) Plan DVT proph - heparin 5000 BID dispo planning - SNF placement Total Time Total Time Spent Total Time Spent (In Minutes): 35 Discharge Plan Discharge Items Patient Disposition: Transfer [facility] Reason For Visit: FAILURE TO THRIVE, FALL Discharge Diagnosis: left humeral fx Activity: Per Instructions section Non-emergency contact: Primary Care Provider Call non-emergency contact if: you have any medication questions Follow-up/Referrals: Kenya Conley DO [Primary Care Provider] - Diet: Regular Addtl Attending Provider Instructions: Please make appointment to follow up with your orthopedic surgeon Pending Studies at Discharge: No Stand-Alone Forms: My [facility] [employer] Skilled Items Patient informed of condition?: Yes DNR: Yes Discharge Level of Care: Skilled Communicable Disease: No Discharge Prognosis: Stable Lines: None Urinary Catheter: No Medications and DC Order Prescriptions: Continued cholecalciferol (vitamin D3) 2,000 unit tablet 2,000 units PO QAM escitalopram oxalate 10 mg tablet 10 mg PO DAILY Qty: 90 3RF calcium carb and citrate-vitD3 [Citracal-D3 Slow Release] 600 mg calcium- 500 unit tablet extended release 1 tab PO DAILY acetaminophen [Tylenol Extra Strength] 500 mg tablet 500 mg PO Q12H aspirin 81 mg Tablet,Delayed Release (Dr/Ec) 81 mg PO HS Multivitamin Gummies 200 mcg Tablet,Chewable 1 tab PO DAILY Discontinued cefdinir 250 mg/5 mL suspension for reconstitution 300 mg PO BID 7 Days Qty: 84 0RF Rx Instructions: Start Date 08/29/2022 - End Date 09/04/2022 Discharge Orders: Discharge Order (Routine); Ordered 09/12/22 Ordered By: Sami Aguilar Admission Data Admit Date/Time: 09/02/22 18:48 Attending Provider: Sami Aguilar Admit Provider: Ga Stover Primary Care Provider: Kenya Conley Other Providers: Delfino Hernandez ; Ga Stover ; Dieter Cardenas Coding Level of Care Code 67645 INP/OBS DISCH >30 MIN Diagnoses Failure to thrive in adult R62.7 Fall W19.XXXA Ambulatory dysfunction R26.2 Closed left humeral fracture S42.302A Acute UTI (urinary tract infection) N39.0 Dementia F03.90 Depression F32.9 Osteoporosis M81.0 Hypothyroidism E03.9 Hypothyroidism type: acquired Constipation K59.00 Fracture of left iliac crest S32.302A Time Spent (min) 35
[2022-09-12 11:07] VITALS: BP 115/63
== END 2022-09-12 15:37 | DRG 641 ==
LOC: ED 15:46 → 3N 18:48 → SUATTDRO 18:48 → 3N 20:49 → 3W 09-08 18:47